=== PATIENT | male | born 1955 | race Caucasian/White ===

== ENCOUNTER 2020-08-10 23:26 | Emergency (ER) | payer OTHER, SELFPAY ==
--- NOTE | 2020-08-10 23:18 | ECG_ITS ---
APPROVED REPORT Exam: Resting ECG HR:124 bpm ECG Measurements Heart Rate 124 AXES FL 144 P 56 QRSd 90 QRS 27 QT 294 T 9 QTc 422 Conclusion Sinus tachycardia Otherwise normal ECG Electronically signed by : Rob Alas, 08/11/2020 19:45:00
[2020-08-10 23:28] VITALS: BP 149/93; PULSE 122; RESP 22; TEMP 38.2; O2SAT 95; BMI 33.6
--- NOTE | 2020-08-10 23:42 | [facility].EDSOB ---
ED Disposition Clinical Impression: COVID-19 virus detected, Pneumonia due to COVID-19 virus Disposition: Home, Self-Care Condition on Discharge: Good Instructions: DI for COVID-19 (Suspected or Confirmed ) Additional Instructions: fluids and call pcp this am - Critical Care Critical Care Time: No Attestation: On , the high probability of a clinically significant, sudden or life threatening deterioration of the following system(s) required my full and direct attention, intervention and personal management. The time I documented below is in addition to time spent performing reported procedures but includes the following listed in this critical care notation. Medical Decision Making - Medical Records Medical records reviewed: Yes: I reviewed the patient's medical records. - Jeffy Inquiry Pt receiving controlled substance: No Vital Signs: 08/10/20 23:28 08/11/20 00:00 08/11/20 00:30 Temperature 100.7 F H Temperature Source Oral Pulse Rate [Right] 122 H 114 H 110 H Respiratory Rate 22 18 17 Blood Pressure [Left Arm] 149/93 H 143/90 H 133/71 Blood Pressure Mean [Left Arm] 111 107 91 Blood Pressure Source [Left Arm] Automatic Cuff Automatic Cuff Automatic Cuff Blood Pressure Position [Left Arm] Supine Supine Supine 02 Sat by Pulse Oximetry 95 98 97 Oxygen Delivery Method Room Air Room Air Room Air 08/11/20 01:30 08/11/20 02:00 Temperature Temperature Source Pulse Rate [Right] 105 H 106 H Respiratory Rate 16 15 Blood Pressure [Left Arm] 140/84 132/82 Blood Pressure Mean [Left Arm] 102 98 Blood Pressure Source [Left Arm] Automatic Cuff Automatic Cuff Blood Pressure Position [Left Arm] Supine Supine 02 Sat by Pulse Oximetry 99 97 Oxygen Delivery Method Room Air Room Air - Lab Data Lab results reviewed: Yes: I reviewed the patient's lab results. Lab Results 08/11/20 00:00: Chlamy pneumoniae PCR Not detected, Adenovirus (PCR) Not detected, B. pertussis DNA (PCR) Not detected, Coronavirus OC43 (PCR) Not detected, Coronavirus HKU1 (PCR) Not detected, Coronavirus 229E (PCR) Not detected, SARS-CoV-2 (PCR) Detected A, Coronavirus NL63 (PCR) Not detected, Human Metapneumovir PCR Not detected, Influenza A (H1) PCR Not detected, Influ A (H1N1/09) PCR Not detected, Influenza A (H3) PCR Not detected, Influenza Type A (PCR) Not detected, Influenza Type B (PCR) Not detected, M. pneumoniae (PCR) Not detected, Parainfluenza 1 (PCR) Not detected, Parainfluenza 2 (PCR) Not detected, Parainfluenza 3 (PCR) Not detected, Parainfluenza 4 (PCR) Not detected, RSV (PCR) Not detected, Entero/Rhino (PCR) Not detected 08/11/20 00:00: WBC 4.8, RBC 5.39, Hgb 16.7, Hct 51.0, MCV 94.6 H, MCH 30.9, MCHC 32.7, RDW 12.7, Plt Count 165, MPV 7.4, Neut % (Auto) 69.5, Lymph % (Auto) 24.8, [place] % (Auto) 5.3, Eos % (Auto) 0.1, Baso % (Auto) 0.4, Neut # (Auto) 3.4, Lymph # (Auto) 1.2, [place] # (Auto) 0.3, Eos # (Auto) 0.0, Baso # (Auto) 0.0, ESR 17 08/11/20 00:00: Sodium 136, Potassium 4.0, Chloride 97 L, Carbon Dioxide 30, Anion Gap 13.0, BUN 13, Creatinine 1.00, Estimated Creat Clear 95, Estimated GFR 75, Est GFR ( Amer) 91, Glucose 221 H, Calcium 9.9, Total Bilirubin 1.0, AST 35, ALT 28, Alkaline Phosphatase 115, Troponin I 0.03, C-Reactive Protein 19.7 H, Total Protein 7.7, Albumin 4.3, Globulin 3.4 H, Albumin/Globulin Ratio 1.3, Procalcitonin 0.071 08/11/20 00:00: SARS-CoV-2 IgG Ab (Rapid) Negative, SARS-CoV-2 IgM Ab (Rapid) Negative Result diagrams: 08/11/20 00:00 08/11/20 00:00 Orders (Tests/Meds): ED MEDICATIONS Generic Name Dose Route Start Last Admin Trade Name Freq PRN Reason Stop Dose Admin Sodium Chloride 1,000 mls @ 999 mls/hr 08/10/20 23:45 08/11/20 00:05 Sod Chlor 0.9% 1000ml Bag IV 08/11/20 00:45 999 mls/hr .[id number] HONG Administration Discontinued Medications Generic Name Dose Route Start Last Admin Trade Name Freq PRN Reason Stop Dose Admin Acetaminophen 1,000 mg 08/10/20 23:41 08/11/20 00:04
[2020-08-11] VITALS: BP 143/90; PULSE 114; RESP 18; O2SAT 98
--- NOTE | 2020-08-11 00:02 | CT_ITS ---
PROCEDURE: CT ANGIO CHEST CLINCIAL INDICATION: pain with inspiration, dyspnea, shortness of air, exposure to Covid19 COMPARISON: No exams were available for comparison TECHNIQUE: IV Contrast: 70ML Isovue 370 Axial images obtained with sagittal and coronal reformats. All CT scans at the facility use one or more dose reduction, viz: automated exposure control, ma/kV adjustment per patient size (including targeted exams where dose is matched to indication, i.e. head), or iterative reconstruction technique. FINDINGS: HEART AND MEDIASTINAL STRUCTURES: No evidence of aortic aneurysm dissection or central pulmonary embolus. Peripheral pulmonary arteries are not well opacified. There are few scattered small mediastinal lymph nodes.. Coronary artery calcifications LUNGS AND PLEURAL SPACES: Patchy areas of atelectasis and/or infiltrate noted in the lung bases within both lower lobes and lingula with faint patchy peripheral right upper lobe opacity/ground-glass opacity in the perihilar region which could be seen with Covid19 pneumonia. BONY STRUCTURES: No acute bony abnormalities apparent. UPPER ABDOMEN: Fatty liver ADDITIONAL FINDINGS: Gynecomastia IMPRESSION: Bilateral atelectatic changes with faint peripheral right upper lobe and perihilar opacity which could represent Covid19 infection No central pulmonary embolus. Fatty liver Dictated by: Homar Diaz MD 08/11/2020 08:52 Homar Diaz MD in [facility] 08/11/2020 08:52
--- NOTE | 2020-08-11 00:02 | XR_ITS ---
PROCEDURE: XR CHEST PORTABLE CLINICAL HISTORY: SOA Shortness of air and dyspnea COMPARISON: No exams were available for comparison FINDINGS: The cardiomediastinal silhouette and pulmonary vascularity are within normal limits. There are low lung volumes with increased density in the lung bases which could be due to areas of atelectasis and/or infiltrate. Upper lobes are clear. No acute bony abnormalities. IMPRESSION: Hypoventilation with atelectasis or infiltrate in the lung bases. Dictated by: Homar Diaz MD 08/11/2020 06:07 Homar Diaz MD in [facility] 08/11/2020 06:07
[2020-08-11 00:21] LABS: Alanine Aminotransferase 28 U/L (12-78); Albumin Level 4.3 g/dl (3.5-5.0); Albumin/Globulin Ratio 1.3 (1.1-1.8); Alkaline Phosphatase 115 U/L (38-126); Aspartate Amino Transferase 35 U/L (17-59); Blood Urea Nitrogen 13 mg/dl (9-20); Calcium 9.9 mg/dl (8.4-10.2); Carbon Dioxide 30 mmol/L (22.0-30.0); Chloride 97 mmol/L (98-107); Creatinine Clearance Estimated 95 mL/min (50-200); Estimated Glomerular Filt Rate 75 ml/min (>60); GFR (African American) 91 ML/MIN (>60); Globulin 3.4 g/dL (1.3-3.2); Glucose 221 mg/dl (74-100); Sodium 136 mmol/L (136-145); Total Protein,Serum 7.7 g/dl (6.3-8.2)
[2020-08-11 00:22] LABS: Basophils % 0.4 % (0.1-2.0); Eosinophils % 0.1 % (0.1-12.0); Hemoglobin 16.7 g/dL (14.1-18.0); Lymphocytes # 1.2 K/mm3 (0.7-4.5); Lymphocytes % 24.8 % (10-50); Mean Corpuscular HGB Conc 32.7 g/dL (31.8-35.4); Mean Corpuscular Hemoglobin 30.9 pg (27.0-31.2); Mean Corpuscular Volume 94.6 fl (80-94); Mean Platelet Volume 7.4 fl (7.4-10.4); Monocytes # 0.3 K/mm3 (0.1-1.0); Monocytes % 5.3 % (1.7-9.3); Neutrophils # 3.4 K/mm3 (1.8-7.8); Neutrophils % 69.5 % (37.0-80.0); Platelet Count 165 K/mm3 (142-424); Red Blood Count 5.39 M/mm3 (4.60-6.20); Red Cell Distribution Width 12.7 % (11.5-17.5); White Blood Count 4.8 K/mm3 (4.8-10.8)
[2020-08-11 00:26] LABS: C-Reactive Protein 19.7 mg/L (0-4)
[2020-08-11 00:30] VITALS: BP 133/71; PULSE 110; RESP 17; O2SAT 97
[2020-08-11 00:34] LABS: Adenovirus,PCR Not Detected (NotDetected); Bordetella Pertussis Not Detected (NotDetected); Chlamydophila Pneumoniae, PCR Not Detected (NotDetected); Coronavirus 229E Not Detected (NotDetected); Coronavirus NL63 Not Detected (NotDetected); Coronavirus OC43 Not Detected (NotDetected); Coronovirus HKU1,PCR Not Detected (NotDetected); Human Metapneumovirus Not Detected (NotDetected); Influenza A, PCR Not Detected (NotDetected); Influenza AH1, 2009 Not Detected (NotDetected); Influenza AH1, PCR Not Detected (NotDetected); Influenza AH3,PCR Not Detected (NotDetected); Influenza B, PCR Not Detected (NotDetected); Mycoplasma Pneumoniae, PCR Not Detected (NotDetected); Parainfluenza 1, PCR Not Detected (NotDetected); Parainfluenza 2, PCR Not Detected (NotDetected); Parainfluenza 3, PCR Not Detected (NotDetected); Parainfluenza 4, PCR Not Detected (NotDetected); Respiratory Syncytial Virus Not Detected (NotDetected); Rhinovirus/Enterovirus Not Detected (NotDetected)
[2020-08-11 00:35] LABS: Troponin I 0.03 ng/ml (0.00-0.034)
[2020-08-11 00:40] LABS: Procalcitonin 0.071 ng/mL (0.0-2.0)
[2020-08-11 00:46] LABS: Coronavirus 19 IgG Antibody Negative (Negative); Coronavirus 19 IgM Antibody Negative (Negative)
[2020-08-11 00:47] LABS: Erythrocyte Sedimentation Rate 17 mm/hr (0-20)
[2020-08-11 01:30] VITALS: BP 140/84; PULSE 105; RESP 16; O2SAT 99
[2020-08-11 02:00] VITALS: BP 132/82; PULSE 106; RESP 15; O2SAT 97
[2020-08-11 02:09] LABS: Coronavirus 19, PCR Detected (NotDetected)
[2020-08-11 02:30] VITALS: BP 147/94; PULSE 105; RESP 18; O2SAT 98
[2020-08-11 03:02] VITALS: BP 146/92; PULSE 103; RESP 16; TEMP 36.9; O2SAT 95
== END 2020-08-11 03:09 | disposition home or self-care (01) ==
PROVIDERS: Emergency Provider Emergency Medicine; PCP Nurse Practitioner
DX: J12.82 Pneumonia due to coronavirus disease 2019 (principal); Z01.84 Encounter for antibody response examination
CPT/HCPCS: 71045; 71275; 80053; 84145; 84484; 85025; 85651; 86140; 86328; 87581; 87633; 87798; 93005; 96365; 96375; 99284; J2405; Q9967; U0003

== ENCOUNTER 2025-07-17 15:04 | Emergency (ER) | payer MEDICARE, SELFPAY ==
[2025-07-17] VITALS (24 sets, daily range): BP systolic 131–166; BP diastolic 75–94; PULSE 93–113; RESP 11–21; TEMP 36.9; O2SAT 95–100; BMI 33.3
[2025-07-17 15:25] LABS: POC Glucose,Bedside 322 gm/dL (70-110)
--- NOTE | 2025-07-17 15:29 | PC.NURSE ---
patient asked to provide urine sample. patient stated he couldn't at this time. patient educated to let staff know when he needed to use the restroom so we could collect a urine sample.
--- NOTE | 2025-07-17 15:49 | HMH.EDGENADL ---
Discharge Plan Disposition Patient Disposition: Xfer Short-Term Hosp Condition: Good Prescriptions Prescriptions: No Action famotidine 20 MG tablet 20 mg PO DAILY Referrals Follow up/Referrals: Reece (ED),VIANEY Zamora [Primary Care Provider, Emergency Medicine] - See instructions Clinical Impressions Clinical Impression: CVA (cerebral vascular accident) Qualifiers: CVA mechanism: other Qualified Code(s): I63.89 - Other cerebral infarction Stand Alone Forms Stand Alone Forms: Transfer Record - ED Instructions Patient Instructions: DI for Altered Mental Status Print Language Print Language: Malay Discharge ED Provider: Karli Campbell General Adult HPI <Lora Mckeon ([facility])VIANEY - Last Filed: 07/17/25 18:21> General Chief complaint: Altered Mental Status Stated complaint: Altered mental status Time Seen by Provider: 07/17/25 15:36 Mode of Arrival: Ambulatory Source of Information: Patient and Relative Description of Symptoms (Recalled from ER Triage Doc. by RN): patient presents to the ED for altered mental state. the daughter who works as a nurse states he he off from baseline . per the patients neice, he has a surgical tooth extraction on 07/09 but his altered state started about 2 days prior . no major health history. has a surgical history of appendectomy, hernia repaor and the surgical tooth extraction. no prior stroke hx. takes aspirin daily for prophylaxis according to the patient nad the neice. History of Present Illness HPI narrative: 70-year-old male presents to the ER for altered mental status x 10 days. Niece at bedside and states patient is just not acting right. She states this morning she came into evaluate him and he was just not acting right was trying to step backwards on the couch with his knees and then after sitting for a little while got up and went into the kitchen and when she went into check on him he was just standing looking around and when she asked what he was doing he said I do not know. Niece states she did talk him into coming in to be evaluated. States no medical history but does not go to the doctor. Related Data Home Medications ?Medication ?Instructions ?Recorded ?Confirmed famotidine 20 mg tablet 20 mg PO DAILY GERD 08/10/20 08/10/20 Allergies Allergy/AdvReac Type Severity Reaction Status Date / Time No Known Allergies Allergy Verified 08/10/20 23:39 PFSH <Lora Mckeon ([facility]), EQUIPMENT COORDINATOR - Last Filed: 07/17/25 18:21> PFS Disclaimer: The information contained in this section may have been updated after the patient was seen, as this information can be updated by other users. Social History Smoking Status: Never smoker alcohol intake: never current occupational status: retired Travel in the last 8 weeks?: None Have you lived/traveled outside US in past 30 days?: No Contact w/someone who lives/traveled outside US past 30 days?: No Exposure to someone with infectious disease in past 14 days?: No Do you have a fever (greater than 100.4 F or 38 C)?: No Have you tested positive for COVID-19?: No Exposed to someone with COVID-19 in past 14 days?: No Do you have a sore throat?: No Do you have a cough?: No Do you have any weakness?: No Do you have any diarrhea?: No Are you experiencing any unusual bleeding?: No Do you have any muscle aches/pain?: No Do you have any abdominal pain?: No Are you experiencing loss of taste or smell?: No Other Medical History Have you received the Flu Vaccine for this season: No Have you received the Pneumonia Vaccine: No <Lora Mckeon ([facility]), EQUIPMENT COORDINATOR - Last Filed: 07/17/25 18:21> ROS Obtained: Yes Systems reviewed as appropriate & no additional complaints except as documented Constitutional Constitutional: Reports system reviewed and no additional complaints, except as documented and Reports as per HPI Musculoskeletal Musculoskeletal: Reports abnormal gait Neurologic Neurologic: Reports system reviewed and no additional complaints, except as documented, Reports as per HPI and Reports abnormal gait Physical Exam <Lora Mckeon ([facility]), EQUIPMENT COORDINATOR - Last Filed: 07/17/25 18:21> General General appearance: alert and in no apparent distress Eye Eye exam: Present normal appearance and PERRL ENT ENT exam: Present normal exam Respiratory Respiratory exam: Present normal lung sounds bilaterally Cardiovascular Cardiovascular exam: Present regular rate and normal rhythm Neurological Exam Neurological exam: Present alert, oriented X3 and CN II-XII intact Skin Skin exam: Present warm and intact Medical Decision Making <Lora Mckeon ([facility]), EQUIPMENT COORDINATOR - Last Filed: 07/17/25 18:21> Medical Records Medical records reviewed: Yes I reviewed the patient's medical records. Screening: Per USPSTF and CDC recommendations, given the prevalence of disease in our region, it is our hospital?s policy to screen for HIV and viral Hepatitis for all patients aged 18 and over and those with ongoing risk factors. Jeffy Inquiry Pt receiving controlled substance: No Jeffy was queried for this patient: No Vital Signs: 07/17/25 15:19 07/17/25 16:00 07/17/25 16:52 Temperature 98.5 F Temperature Source Oral Pulse Rate 110 H 113 H Pulse Rate [Right Radial] 112 H Respiratory Rate 20 16 21 Blood Pressure 133/75 154/85 H Blood Pressure [Right Arm] 147/90 H Blood Pressure Mean 94 Blood Pressure Mean [Right Arm] 109 Blood Pressure Source [Right Arm] Automatic Cuff Blood Pressure Position [Right Arm] Sitting 02 Sat by Pulse Oximetry 97 95 98 Oxygen Delivery Method Room Air Room Air 07/17/25 17:00 07/17/25 19:15 07/17/25 19:16 Temperature Temperature Source Pulse Rate 98 H 96 H Pulse Rate [Right Radial] Respiratory Rate 11 L 12 21 Blood Pressure 138/94 H Blood Pressure [Right Arm] Blood Pressure Mean Blood Pressure Mean [Right Arm] Blood Pressure Source [Right Arm] Blood Pressure Position [Right Arm] 02 Sat by Pulse Oximetry 98 98 Oxygen Delivery Method Room Air Room Air 07/17/25 19:16 07/17/25 19:30 07/17/25 19:31 Temperature Temperature Source Pulse Rate 93 H 101 H Pulse Rate [Right Radial] Respiratory Rate 15 16 Blood Pressure 166/90 H Blood Pressure [Right Arm] Blood Pressure Mean 138 Blood Pressure Mean [Right Arm] Blood Pressure Source [Right Arm] Blood Pressure Position [Right Arm] 02 Sat by Pulse Oximetry 99 99 Oxygen Delivery Method Room Air Room Air 07/17/25 19:45 07/17/25 20:00 07/17/25 20:01 Temperature Temperature Source Pulse Rate 100 H 102 H Pulse Rate [Right Radial] Respiratory Rate 18 21 21 Blood Pressure Blood Pressure [Right Arm] Blood Pressure Mean Blood Pressure Mean [Right Arm] Blood Pressure Source [Right Arm] Blood Pressure Position [Right Arm] 02 Sat by Pulse Oximetry 99 98 Oxygen Delivery Method Room Air Room Air 07/17/25 20:01 07/17/25 20:15 07/17/25 21:33 Temperature Temperature Source Pulse Rate 96 H Pulse Rate [Right Radial] Respiratory Rate 18 16 Blood Pressure 161/93 H 131/88 Blood Pressure [Right Arm] Blood Pressure Mean 115 100 Blood Pressure Mean [Right Arm] Blood Pressure Source [Right Arm] Blood Pressure Position [Right Arm] 02 Sat by Pulse Oximetry 100 Oxygen Delivery Method Room Air 07/17/25 22:00 07/17/25 22:00 07/17/25 22:15 Temperature Temperature Source Pulse Rate Pulse Rate [Right Radial] Respiratory Rate 15 15 Blood Pressure 138/93 H Blood Pressure [Right Arm] Blood Pressure Mean 108 Blood Pressure Mean [Right Arm] Blood Pressure Source [Right Arm] Blood Pressure Position [Right Arm] 02 Sat by Pulse Oximetry Oxygen Delivery Method 07/17/25 22:30 07/17/25 22:45 07/17/25 23:00 Temperature Temperature Source Pulse Rate 110 H 110 H 103 H Pulse Rate [Right Radial] Respiratory Rate 18 11 L 20 Blood Pressure Blood Pressure [Right Arm] Blood Pressure Mean Blood Pressure Mean [Right Arm] Blood Pressure Source [Right Arm] Blood Pressure Position [Right Arm] 02 Sat by Pulse Oximetry 99 99 98 Oxygen Delivery Method Room Air Room Air Room Air 07/17/25 23:02 07/17/25 23:03 07/17/25 23:03 Temperature Temperature Source Pulse Rate 110 H 109 H Pulse Rate [Right Radial] Respiratory Rate 19 20 Blood Pressure 155/90 H Blood Pressure [Right Arm] Blood Pressure Mean 111 Blood Pressure Mean [Right Arm] Blood Pressure Source [Right Arm] Blood Pressure Position [Right Arm] 02 Sat by Pulse Oximetry 98 98 Oxygen Delivery Method Room Air Room Air Lab Data Lab results reviewed: Yes I reviewed the patient's lab results. Lab Results 07/17/25 15:18: POC Glucose 322 H* 07/17/25 16:30: WBC 9.2, RBC 5.80, Hgb 17.9, Hct 52.1 H, MCV 89.8, MCH 30.9, MCHC 34.4, RDW 11.9, Plt Count 282, MPV 9.4, Neut % (Auto) 72.0, Lymph % (Auto) 20.7, Baldwin % (Auto) 5.0, Eos % (Auto) 1.2, Baso % (Auto) 0.7, Neut # (Auto) 6.6, Lymph # (Auto) 1.9, Baldwin # (Auto) 0.5, Eos # (Auto) 0.1, Baso # (Auto) 0.1, Sodium 142, Potassium 4.6, Chloride 101, Carbon Dioxide 28, Anion Gap 17.6 H, BUN 20, Creatinine 1.00, Estimated Creat Clear 85, Estimated GFR 74, Est GFR ( Amer) 90, Glucose 331 H, Hemoglobin A1c 10.8 H, Calcium 10.8 H, Total Bilirubin 0.8, AST 36, ALT 24, Alkaline Phosphatase 103, Total Protein 8.6 H, Albumin 4.9, Globulin 3.7 H, Albumin/Globulin Ratio 1.3 07/17/25 16:34: VBG pH 7.35, VBG pCO2 51.3 H, VBG pO2 21.7 L, VBG HCO3 27.6, VBG Total CO2 29.1 H, VBG O2 Saturation 39.3 L, VBG Base Excess 1.9, VBG Lactic Acid 2.6 H 07/17/25 16:50: Urine Color Yellow, Urine Appearance Clear, Urine pH 6.0, Ur Specific Maury 1.020, Urine Protein Negative, Urine Glucose (UA) 3+, Urine Ketones Negative, Urine Blood Negative, Urine Nitrate Negative, Urine Bilirubin Negative, Urine Urobilinogen 0.2, Ur Leukocyte Esterase Negative, Urine RBC None, Urine WBC Occasional, Ur Squamous Epith Cells None, Urine Bacteria Trace 07/17/25 16:30 07/17/25 16:30 Orders (Tests/Meds): ED MEDICATIONS Generic Name Dose Route Start Last Admin Trade Name Freq PRN Reason Stop Dose Admin Sodium Chloride 1,000 mls @ 125 mls/hr 07/17/25 23:15 07/17/25 23:19 Sod Chlor 0.9% 1000ml Bag IV 08/16/25 23:14 125 mls/hr .Q8H HONG Administration Discontinued Medications Generic Name Dose Route Start Last Admin Trade Name Freq PRN Reason Stop Dose Admin Aspirin 325 mg 07/17/25 17:22 07/17/25 17:33 Aspirin 325mg Tablet PO 07/17/25 17:23 325 mg ONCE ONE Administration Clopidogrel Bisulfate 300 mg 07/17/25 18:21 07/17/25 18:39 Clopidogrel 300mg Tablet PO 07/17/25 18:22 300 mg ONCE ONE Administration Iopamidol 80 ml 07/17/25 17:34 07/17/25 17:35 Iopamidol-370 (76%);100ml Bottle IV 07/17/25 17:35 80 ml ONCE ONE Administration Sodium Chloride 10 ml 07/17/25 17:34 07/17/25 17:35 Sodium Chloride 0.9% 10ml Syr (Rad Only) IV 07/17/25 17:35 10 ml ONCE ONE Administration Sodium Chloride 50 ml 07/17/25 17:34 07/17/25 17:35 0.9 % Sodium Chloride 50 Ml Vial IV 07/17/25 17:35 50 ml ONCE ONE Administration ORDERS Category Date Time Status CT angio head Stat Cat Scan 07/17/25 17:[address] angio neck Stat Cat Scan 07/17/25 17:[address] head/brain wo con Stat Cat Scan 07/17/25 15:50 Completed CBC w/Auto Diff [Complete Blood Count Auto Diff] Stat Lab 07/17/25 16:30 Completed CMP [Comprehensive Metabolic Panel] Stat Lab 07/17/25 16:30 Completed Hemoglobin A1C Stat Lab 07/17/25 16:30 Completed POC Glucose,Bedside Routine Lab 07/17/25 15:18 Completed Urinalysis and Microscopic Stat Lab 07/17/25 16:50 Completed Venous Blood Gas Stat RT 07/17/25 16:[address] CT Scan: Head Time Received: 17:[address] Reviewed: Yes I discussed the CT results w/the radiologist and I have viewed the radiologist's interpretation Preliminary Findings: Abnormal US Data ED US Reviewed: Yes I discussed the US results w/the radiologist and I have viewed radiologist's interpretation Medical Decision Narrative: In summary patient is a 70-year-old male who presents to the emergency department for evaluation of altered mental status for 10 days, niece at bedside states symptoms have been going on for about 10 days and patient refused to go be evaluated. She states he had an episode at home where he was trying to sit on the couch knees first, after sitting for a little bit he got up with the irregular gait walked into the kitchen and was wondering around when she asked what he was doing he states I do not know. Patient is hemodynamically stable upon arrival, afebrile. Unremarkable physical exam Nogal Coma Scale 15. Differential diagnosis includes TIA, stroke, UTI. Initial workup will be conducted with labs, CT of the head- No acute intracranial hemorrhage.Well-delineated low attenuation in the superior right frontal lobe may represent evolving infarction. 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 Severe multifocal intracranial atherosclerotic change,cta neck- The right vertebral artery is occluded in the neck. The cervical vasculature is otherwise patent. there is asymmetry to the right tongue base soft tissues protruding into the vallecula. Correlate with direct inspection. - results called to [facility])-recommends 300 mg Plavix one-time urine. Initial workup reviewed by [place] glucose 331 A1c ordered, white count normal, urine normal. Upon repeat evaluation with CT showing progression of a stroke unknown timing. [facility] <Radu Wu MD - Last Filed: 07/17/25 23:16> Vital Signs: 07/17/25 15:19 07/17/25 16:00 07/17/25 16:52 Temperature 98.5 F Temperature Source Oral Pulse Rate 110 H 113 H Pulse Rate [Right Radial] 112 H Respiratory Rate 20 16 21 Blood Pressure 133/75 154/85 H Blood Pressure [Right Arm] 147/90 H Blood Pressure Mean 94 Blood Pressure Mean [Right Arm] 109 Blood Pressure Source [Right Arm] Automatic Cuff Blood Pressure Position [Right Arm] Sitting 02 Sat by Pulse Oximetry 97 95 98 Oxygen Delivery Method Room Air Room Air 07/17/25 17:00 07/17/25 19:15 07/17/25 19:16 Temperature Temperature Source Pulse Rate 98 H 96 H Pulse Rate [Right Radial] Respiratory Rate 11 L 12 21 Blood Pressure 138/94 H Blood Pressure [Right Arm] Blood Pressure Mean Blood Pressure Mean [Right Arm] Blood Pressure Source [Right Arm] Blood Pressure Position [Right Arm] 02 Sat by Pulse Oximetry 98 98 Oxygen Delivery Method Room Air Room Air 07/17/25 19:16 07/17/25 19:30 07/17/25 19:31 Temperature Temperature Source Pulse Rate 93 H 101 H Pulse Rate [Right Radial] Respiratory Rate 15 16 Blood Pressure 166/90 H Blood Pressure [Right Arm] Blood Pressure Mean 138 Blood Pressure Mean [Right Arm] Blood Pressure Source [Right Arm] Blood Pressure Position [Right Arm] 02 Sat by Pulse Oximetry 99 99 Oxygen Delivery Method Room Air Room Air 07/17/25 19:45 07/17/25 20:00 07/17/25 20:01 Temperature Temperature Source Pulse Rate 100 H 102 H Pulse Rate [Right Radial] Respiratory Rate 18 21 21 Blood Pressure Blood Pressure [Right Arm] Blood Pressure Mean Blood Pressure Mean [Right Arm] Blood Pressure Source [Right Arm] Blood Pressure Position [Right Arm] 02 Sat by Pulse Oximetry 99 98 Oxygen Delivery Method Room Air Room Air 07/17/25 20:01 07/17/25 20:15 07/17/25 21:33 Temperature Temperature Source Pulse Rate 96 H Pulse Rate [Right Radial] Respiratory Rate 18 16 Blood Pressure 161/93 H 131/88 Blood Pressure [Right Arm] Blood Pressure Mean 115 100 Blood Pressure Mean [Right Arm] Blood Pressure Source [Right Arm] Blood Pressure Position [Right Arm] 02 Sat by Pulse Oximetry 100 Oxygen Delivery Method Room Air 07/17/25 22:00 07/17/25 22:00 07/17/25 22:15 Temperature Temperature Source Pulse Rate Pulse Rate [Right Radial] Respiratory Rate 15 15 Blood Pressure 138/93 H Blood Pressure [Right Arm] Blood Pressure Mean 108 Blood Pressure Mean [Right Arm] Blood Pressure Source [Right Arm] Blood Pressure Position [Right Arm] 02 Sat by Pulse Oximetry Oxygen Delivery Method 07/17/25 22:30 07/17/25 22:45 07/17/25 23:00 Temperature Temperature Source Pulse Rate 110 H 110 H 103 H Pulse Rate [Right Radial] Respiratory Rate 18 11 L 20 Blood Pressure Blood Pressure [Right Arm] Blood Pressure Mean Blood Pressure Mean [Right Arm] Blood Pressure Source [Right Arm] Blood Pressure Position [Right Arm] 02 Sat by Pulse Oximetry 99 99 98 Oxygen Delivery Method Room Air Room Air Room Air 07/17/25 23:02 07/17/25 23:03 07/17/25 23:03 Temperature Temperature Source Pulse Rate 110 H 109 H Pulse Rate [Right Radial] Respiratory Rate 19 20 Blood Pressure 155/90 H Blood Pressure [Right Arm] Blood Pressure Mean 111 Blood Pressure Mean [Right Arm] Blood Pressure Source [Right Arm] Blood Pressure Position [Right Arm] 02 Sat by Pulse Oximetry 98 98 Oxygen Delivery Method Room Air Room Air Lab Data Lab Results 07/17/25 15:18: POC Glucose 322 H* 07/17/25 16:30: WBC 9.2, RBC 5.80, Hgb 17.9, Hct 52.1 H, MCV 89.8, MCH 30.9, MCHC 34.4, RDW 11.9, Plt Count 282, MPV 9.4, Neut % (Auto) 72.0, Lymph % (Auto) 20.7, Baldwin % (Auto) 5.0, Eos % (Auto) 1.2, Baso % (Auto) 0.7, Neut # (Auto) 6.6, Lymph # (Auto) 1.9, Baldwin # (Auto) 0.5, Eos # (Auto) 0.1, Baso # (Auto) 0.1, Sodium 142, Potassium 4.6, Chloride 101, Carbon Dioxide 28, Anion Gap 17.6 H, BUN 20, Creatinine 1.00, Estimated Creat Clear 85, Estimated GFR 74, Est GFR ( Amer) 90, Glucose 331 H, Hemoglobin A1c 10.8 H, Calcium 10.8 H, Total Bilirubin 0.8, AST 36, ALT 24, Alkaline Phosphatase 103, Total Protein 8.6 H, Albumin 4.9, Globulin 3.7 H, Albumin/Globulin Ratio 1.3 07/17/25 16:34: VBG pH 7.35, VBG pCO2 51.3 H, VBG pO2 21.7 L, VBG HCO3 27.6, VBG Total CO2 29.1 H, VBG O2 Saturation 39.3 L, VBG Base Excess 1.9, VBG Lactic Acid 2.6 H 07/17/25 16:50: Urine Color Yellow, Urine Appearance Clear, Urine pH 6.0, Ur Specific Maury 1.020, Urine Protein Negative, Urine Glucose (UA) 3+, Urine Ketones Negative, Urine Blood Negative, Urine Nitrate Negative, Urine Bilirubin Negative, Urine Urobilinogen 0.2, Ur Leukocyte Esterase Negative, Urine RBC None, Urine WBC Occasional, Ur Squamous Epith Cells None, Urine Bacteria Trace Orders (Tests/Meds): ED MEDICATIONS Generic Name Dose Route Start Last Admin Trade Name Freq PRN Reason Stop Dose Admin Sodium Chloride 1,000 mls @ 125 mls/hr 07/17/25 23:15 07/17/25 23:19 Sod Chlor 0.9% 1000ml Bag IV 08/16/25 23:14 125 mls/hr .Q8H HONG Administration Discontinued Medications Generic Name Dose Route Start Last Admin Trade Name Pankaj PRN Reason Stop Dose Admin Aspirin 325 mg 07/17/25 17:22 07/17/25 17:33 Aspirin 325mg Tablet PO 07/17/25 17:23 325 mg ONCE ONE Administration Clopidogrel Bisulfate 300 mg 07/17/25 18:21 07/17/25 18:39 Clopidogrel 300mg Tablet PO 07/17/25 18:22 300 mg ONCE ONE Administration Iopamidol 80 ml 07/17/25 17:34 07/17/25 17:35 Iopamidol-370 (76%);100ml Bottle IV 07/17/25 17:35 80 ml ONCE ONE Administration Sodium Chloride 10 ml 07/17/25 17:34 07/17/25 17:35 Sodium Chloride 0.9% 10ml Syr (Rad Only) IV 07/17/25 17:35 10 ml ONCE ONE Administration Sodium Chloride 50 ml 07/17/25 17:34 07/17/25 17:35 0.9 % Sodium Chloride 50 Ml Vial IV 07/17/25 17:35 50 ml ONCE ONE Administration ORDERS Category Date Time Status CT angio head Stat Cat Scan 07/17/25 17:[address] angio neck Stat Cat Scan 07/17/25 17:[address] head/brain wo con Stat Cat Scan 07/17/25 15:50 Completed CBC w/Auto Diff [Complete Blood Count Auto Diff] Stat Lab 07/17/25 16:30 Completed CMP [Comprehensive Metabolic Panel] Stat Lab 07/17/25 16:30 Completed Hemoglobin A1C Stat Lab 07/17/25 16:30 Completed POC Glucose,Bedside Routine Lab 07/17/25 15:18 Completed Urinalysis and Microscopic Stat Lab 07/17/25 16:50 Completed Venous Blood Gas Stat RT 07/17/25 16:34 Completed Medical Decision Narrative: In summary patient is a 70-year-old male who presents to the emergency department for evaluation of altered mental status for 10 days, niece at bedside states symptoms have been going on for about 10 days and patient refused to go be evaluated. She states he had an episode at home where he was trying to sit on the couch knees first, after sitting for a little bit he got up with the irregular gait walked into the kitchen and was wondering around when she asked what he was doing he states I do not know. Patient is hemodynamically stable upon arrival, afebrile. Unremarkable physical exam Bashir Coma Scale 15. Differential diagnosis includes TIA, stroke, UTI. Initial workup will be conducted with labs, CT of the head- No acute intracranial hemorrhage.Well-delineated low attenuation in the superior right frontal lobe may represent evolving infarction. 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 Severe multifocal intracranial atherosclerotic change,cta neck- The right vertebral artery is occluded in the neck. The cervical vasculature is otherwise patent. there is asymmetry to the right tongue base soft tissues protruding into the vallecula. Correlate with direct inspection. - [facility] 300 mg Plavix one-time urine. Initial workup reviewed by me glucose 331 A1c ordered, white count normal, urine normal. Upon repeat evaluation with CT showing progression of a stroke unknown timing. [facility] Radu Wu MD: At the time that I assumed care of the patient he was pending transport to [facility]. He remained stable throughout his ED visit. He is mildly tachycardic. Will start maintenance fluids on him. He has been ambulatory here in the emergency department with continued NIH of 0. Has been significant delay in transportation given multiple [place] transport by our ground EMS crew. Due to weather, flight crew's are not transporting at this time. <Shadi Cunha MD - Last Filed: 07/18/25 00:33> Vital Signs: 07/17/25 15:19 07/17/25 16:00 07/17/25 16:52 Temperature 98.5 F Temperature Source Oral Pulse Rate 110 H 113 H Pulse Rate [Right Radial] 112 H Respiratory Rate 20 16 21 Blood Pressure 133/75 154/85 H Blood Pressure [Right Arm] 147/90 H Blood Pressure Mean 94 Blood Pressure Mean [Right Arm] 109 Blood Pressure Source [Right Arm] Automatic Cuff Blood Pressure Position [Right Arm] Sitting 02 Sat by Pulse Oximetry 97 95 98 Oxygen Delivery Method Room Air Room Air 07/17/25 17:00 07/17/25 19:15 07/17/25 19:16 Temperature Temperature Source Pulse Rate 98 H 96 H Pulse Rate [Right Radial] Respiratory Rate 11 L 12 21 Blood Pressure 138/94 H Blood Pressure [Right Arm] Blood Pressure Mean Blood Pressure Mean [Right Arm] Blood Pressure Source [Right Arm] Blood Pressure Position [Right Arm] 02 Sat by Pulse Oximetry 98 98 Oxygen Delivery Method Room Air Room Air 07/17/25 19:16 07/17/25 19:30 07/17/25 19:31 Temperature Temperature Source Pulse Rate 93 H 101 H Pulse Rate [Right Radial] Respiratory Rate 15 16 Blood Pressure 166/90 H Blood Pressure [Right Arm] Blood Pressure Mean 138 Blood Pressure Mean [Right Arm] Blood Pressure Source [Right Arm] Blood Pressure Position [Right Arm] 02 Sat by Pulse Oximetry 99 99 Oxygen Delivery Method Room Air Room Air 07/17/25 19:45 07/17/25 20:00 07/17/25 20:01 Temperature Temperature Source Pulse Rate 100 H 102 H Pulse Rate [Right Radial] Respiratory Rate 18 21 21 Blood Pressure Blood Pressure [Right Arm] Blood Pressure Mean Blood Pressure Mean [Right Arm] Blood Pressure Source [Right Arm] Blood Pressure Position [Right Arm] 02 Sat by Pulse Oximetry 99 98 Oxygen Delivery Method Room Air Room Air 07/17/25 20:01 07/17/25 20:15 07/17/25 21:33 Temperature Temperature Source Pulse Rate 96 H Pulse Rate [Right Radial] Respiratory Rate 18 16 Blood Pressure 161/93 H 131/88 Blood Pressure [Right Arm] Blood Pressure Mean 115 100 Blood Pressure Mean [Right Arm] Blood Pressure Source [Right Arm] Blood Pressure Position [Right Arm] 02 Sat by Pulse Oximetry 100 Oxygen Delivery Method Room Air 07/17/25 22:00 07/17/25 22:00 07/17/25 22:15 Temperature Temperature Source Pulse Rate Pulse Rate [Right Radial] Respiratory Rate 15 15 Blood Pressure 138/93 H Blood Pressure [Right Arm] Blood Pressure Mean 108 Blood Pressure Mean [Right Arm] Blood Pressure Source [Right Arm] Blood Pressure Position [Right Arm] 02 Sat by Pulse Oximetry Oxygen Delivery Method 07/17/25 22:30 07/17/25 22:45 07/17/25 23:00 Temperature Temperature Source Pulse Rate 110 H 110 H 103 H Pulse Rate [Right Radial] Respiratory Rate 18 11 L 20 Blood Pressure Blood Pressure [Right Arm] Blood Pressure Mean Blood Pressure Mean [Right Arm] Blood Pressure Source [Right Arm] Blood Pressure Position [Right Arm] 02 Sat by Pulse Oximetry 99 99 98 Oxygen Delivery Method Room Air Room Air Room Air 07/17/25 23:02 07/17/25 23:03 07/17/25 23:03 Temperature Temperature Source Pulse Rate 110 H 109 H Pulse Rate [Right Radial] Respiratory Rate 19 20 Blood Pressure 155/90 H Blood Pressure [Right Arm] Blood Pressure Mean 111 Blood Pressure Mean [Right Arm] Blood Pressure Source [Right Arm] Blood Pressure Position [Right Arm] 02 Sat by Pulse Oximetry 98 98 Oxygen Delivery Method Room Air Room Air Lab Data Lab Results 07/17/25 15:18: POC Glucose 322 H* 07/17/25 16:30: WBC 9.2, RBC 5.80, Hgb 17.9, Hct 52.1 H, MCV 89.8, MCH 30.9, MCHC 34.4, RDW 11.9, Plt Count 282, MPV 9.4, Neut % (Auto) 72.0, Lymph % (Auto) 20.7, Baldwin % (Auto) 5.0, Eos % (Auto) 1.2, Baso % (Auto) 0.7, Neut # (Auto) 6.6, Lymph # (Auto) 1.9, Baldwin # (Auto) 0.5, Eos # (Auto) 0.1, Baso # (Auto) 0.1, Sodium 142, Potassium 4.6, Chloride 101, Carbon Dioxide 28, Anion Gap 17.6 H, BUN 20, Creatinine 1.00, Estimated Creat Clear 85, Estimated GFR 74, Est GFR ( Amer) 90, Glucose 331 H, Hemoglobin A1c 10.8 H, Calcium 10.8 H, Total Bilirubin 0.8, AST 36, ALT 24, Alkaline Phosphatase 103, Total Protein 8.6 H, Albumin 4.9, Globulin 3.7 H, Albumin/Globulin Ratio 1.3 07/17/25 16:34: VBG pH 7.35, VBG pCO2 51.3 H, VBG pO2 21.7 L, VBG HCO3 27.6, VBG Total CO2 29.1 H, VBG O2 Saturation 39.3 L, VBG Base Excess 1.9, VBG Lactic Acid 2.6 H 07/17/25 16:50: Urine Color Yellow, Urine Appearance Clear, Urine pH 6.0, Ur Specific Maury 1.020, Urine Protein Negative, Urine Glucose (UA) 3+, Urine Ketones Negative, Urine Blood Negative, Urine Nitrate Negative, Urine Bilirubin Negative, Urine Urobilinogen 0.2, Ur Leukocyte Esterase Negative, Urine RBC None, Urine WBC Occasional, Ur Squamous Epith Cells None, Urine Bacteria Trace Orders (Tests/Meds): ED MEDICATIONS Generic Name Dose Route Start Last Admin Trade Name Freq PRN Reason Stop Dose Admin Sodium Chloride 1,000 mls @ 125 mls/hr 07/17/25 23:15 07/17/25 23:19 Sod Chlor 0.9% 1000ml Bag IV 08/16/25 23:14 125 mls/hr .Q8H HONG Administration Discontinued Medications Generic Name Dose Route Start Last Admin Trade Name Freq PRN Reason Stop Dose Admin Aspirin 325 mg 07/17/25 17:22 07/17/25 17:33 Aspirin 325mg Tablet PO 07/17/25 17:23 325 mg ONCE ONE Administration Clopidogrel Bisulfate 300 mg 07/17/25 18:21 07/17/25 18:39 Clopidogrel 300mg Tablet PO 07/17/25 18:22 300 mg ONCE ONE Administration Iopamidol 80 ml 07/17/25 17:34 07/17/25 17:35 Iopamidol-370 (76%);100ml Bottle IV 07/17/25 17:35 80 ml ONCE ONE Administration Sodium Chloride 10 ml 07/17/25 17:34 07/17/25 17:35 Sodium Chloride 0.9% 10ml Syr (Rad Only) IV 07/17/25 17:35 10 ml ONCE ONE Administration Sodium Chloride 50 ml 07/17/25 17:34 07/17/25 17:35 0.9 % Sodium Chloride 50 Ml Vial IV 07/17/25 17:35 50 ml ONCE ONE Administration ORDERS Category Date Time Status CT angio head Stat Cat Scan 07/17/25 17:[address] angio neck Stat Cat Scan 07/17/25 17:[address] head/brain wo con Stat Cat Scan 07/17/25 15:50 Completed CBC w/Auto Diff [Complete Blood Count Auto Diff] Stat Lab 07/17/25 16:30 Completed CMP [Comprehensive Metabolic Panel] Stat Lab 12/13/25 16:30 Completed Hemoglobin A1C Stat Lab 07/17/25 16:30 Completed POC Glucose,Bedside Routine Lab 07/17/25 15:18 Completed Urinalysis and Microscopic Stat Lab 07/17/25 16:50 Completed Venous Blood Gas Stat RT 07/17/25 16:34 Completed Medical Decision Narrative: In summary patient is a 70-year-old male who presents to the emergency department for evaluation of altered mental status for 10 days, niece at bedside states symptoms have been going on for about 10 days and patient refused to go be evaluated. She states he had an episode at home where he was trying to sit on the couch knees first, after sitting for a little bit he got up with the irregular gait walked into the kitchen and was wondering around when she asked what he was doing he states I do not know. Patient is hemodynamically stable upon arrival, afebrile. Unremarkable physical exam Bashir Coma Scale 15. Differential diagnosis includes TIA, stroke, UTI. Initial workup will be conducted with labs, CT of the head- No acute intracranial hemorrhage.Well-delineated low attenuation in the superior right frontal lobe may represent evolving infarction. 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 Severe multifocal intracranial atherosclerotic change,cta neck- The right vertebral artery is occluded in the neck. The cervical vasculature is otherwise patent. there is asymmetry to the right tongue base soft tissues protruding into the vallecula. Correlate with direct inspection. - results called to [facility])-recommends 300 mg Plavix one-time urine. Initial workup reviewed by me glucose 331 A1c ordered, white count normal, urine normal. Upon repeat evaluation with CT showing progression of a stroke unknown timing. Given this patient will be transferred to [facility] Dr. Mcgregor accepted Radu Wu MD: At the time that I assumed care of the patient he was pending transport to [facility]. He remained stable throughout his ED visit. He is mildly tachycardic. Will start maintenance fluids on him. He has been ambulatory here in the emergency department with continued NIH of 0. Has been significant delay in transportation given [place] transport by our ground EMS crew. Due to weather, flight crew's are not transporting at this time. Cnuha: Patient remained in the ER until ground transportation became available. At 0031 the EMS crew arrived to the hospital. Patient was reassessed at this time and remains GCS 15, NIH 0, ambulatory, tolerating oral intake. He is hemodynamically stable, protecting his airway, and appropriate for transport. Maintenance fluids were stopped. He is appropriate for transfer by [facility] ambulance and was transferred in stable condition. Critical Care <Lora Mckeon ([facility]), EQUIPMENT COORDINATOR - Last Filed: 07/17/25 18:21> Critical Care Time Critical Care Time: No
--- NOTE | 2025-07-17 15:50 | CT_ITS ---
PROCEDURE INFORMATION: Exam: CT Head Without Contrast Exam date and time: 07/17/2025 4:16 PM Age: 70 years old Clinical indication: Altered mental status/memory loss; Additional info: AMS TECHNIQUE: Imaging protocol: Computed tomography of the head without contrast. Radiation optimization: All CT scans at this facility use at least one of these dose optimization techniques: automated exposure control; mA and/or kV adjustment per patient size (includes targeted exams where dose is matched to clinical indication); or iterative reconstruction. COMPARISON: No relevant prior studies available. FINDINGS: Brain: No acute intracranial hemorrhage.. Well-delineated low attenuation in the superior right frontal lobe may represent evolving infarction. There is mild diffuse heterogeneity of the white matter attenuation, consistent with chronic white matter ischemic changes. Mild cerebral atrophy Cerebral ventricles: No ventriculomegaly. Paranasal sinuses: Visualized sinuses are unremarkable. No fluid levels. Mastoid air cells: Visualized mastoid air cells are well aerated. Bones: Unremarkable. No acute fracture. Soft tissues: Unremarkable. IMPRESSION: 1. No acute intracranial hemorrhage.. 2. Well-delineated low attenuation in the superior right frontal lobe may represent evolving infarction.
[2025-07-17 16:39] LABS: Hematocrit 52.1 % (42.0-52.0); Hemoglobin 17.9 g/dL (14.1-18.0); Immature Granulocytes % 0.4 %; Mean Corpuscular HGB Conc 34.4 g/dL (31.8-35.4); Mean Corpuscular Hemoglobin 30.9 pg (27.0-31.2); Mean Corpuscular Volume 89.8 fl (80-94); Nucleated Red Blood Cells % 0 %; Platelet Count 282 K/mm3 (142-424); Red Blood Count 5.80 M/mm3 (4.60-6.20); Red Cell Distribution Width-SD 38.7 fL; White Blood Count 9.2 K/mm3 (4.8-10.8)
[2025-07-17 16:40] LABS: Lactate Venous 2.6 mmol/L (0.4-2.0); VBG HCO3 27.6 mmol/L (23-30); VBG PCO2 51.3 mmol/L (35-51); VBG PH 7.35 mmol/L (7.31-7.41); VBG PO2 21.7 mmol/L (28-40)
[2025-07-17 16:43] LABS: Chloride 101 mmol/L (98-107)
[2025-07-17 16:44] LABS: Albumin Level 4.9 g/dl (3.5-5.0); Potassium 4.6 mmoL/L (3.5-5.1); Sodium 142 mmol/L (136-145)
[2025-07-17 16:47] LABS: Alanine Aminotransferase 24 U/L (12-78); Albumin/Globulin Ratio 1.3 (1.1-1.8); Alkaline Phosphatase 103 U/L (38-126); Anion Gap 17.6 mEq/L (5-15); Aspartate Amino Transferase 36 U/L (17-59); Bilirubin,Total 0.8 mg/dl (0.2-1.3); Blood Urea Nitrogen 20 mg/dl (9-20); Calcium 10.8 mg/dl (8.4-10.2); Carbon Dioxide 28 mmol/L (22.0-30.0); Creatinine Clearance Estimated 85 mL/min (50-200); Creatinine,Serum 1.00 mg/dl (0.66-1.25); Estimated Glomerular Filt Rate 74 ml/min (>60); GFR (African American) 90 ML/MIN (>60); Globulin 3.7 g/dL (1.3-3.2); Glucose 331 mg/dl (74-100); Total Protein,Serum 8.6 g/dl (6.3-8.2)
[2025-07-17 16:55] LABS: Microscopic, Urine URINE MICROSCOPIC (MICROSCOPIC)
[2025-07-17 16:57] LABS: Bilirubin,Urine Negative (Negative); Color,Urine YELLOW (Yellow); Glucose,Urine (UA) 3+ (Negative); Ketones,Urine Negative (Negative); Leukocyte Esterase,Urine Negative (Negative); PH,Urine 6.0 (5.0-8.5); Protein,Urine Negative (Negative); Specific Gravity, Urine 1.020 (1.005-1.030); Urobilinogen,Urine 0.2 EU/dl (0.2)
[2025-07-17 17:12] LABS: Bacteria,Urine Trace /lpf; WBC,Urine Occasional #/hpf (0-3)
--- NOTE | 2025-07-17 17:14 | CT_ITS ---
PROCEDURE INFORMATION: Exam: CTA Head With Contrast, Arteriography Exam date and time: 07/17/2025 5:26 PM Age: 70 years old Clinical indication: Stroke-like symptoms; Altered mental status/memory loss TECHNIQUE: Imaging protocol: Computed tomographic angiography of the head with contrast. Exam focused on the arteries. AI vessel analysis not performed. 3D rendering (Not supervised by radiologist): MIP and/or 3D reconstructed images were created by the technologist. Radiation optimization: All CT scans at this facility use at least one of these dose optimization techniques: automated exposure control; mA and/or kV adjustment per patient size (includes targeted exams where dose is matched to clinical indication); or iterative reconstruction. Contrast material: ISOVUE; Contrast volume: 80 ml; Contrast route: INTRAVENOUS (IV); COMPARISON: CT HEAD/BRAIN WO CON 07/17/2025 4:16 PM FINDINGS: ANTERIOR CIRCULATION: Right internal carotid artery: The right ICA has mild stenosis in the petrous segment and severe stenosis in the distal cavernous segment with focal occlusion. The paraclinoid ICA has reconstitution of flow which may be retrograde. Right middle cerebral artery: There is severe stenosis at the right MCA bifurcation in several proximal M2 branches. No definite occlusion seen. Click AI Right anterior cerebral artery: The A1 segment of the right SARAY is diffusely hypoplastic which may be congenital. Right anterior cerebral artery is patent. No significant stenosis. No aneurysm. Anterior communicating artery: No anterior communicating artery aneurysm seen. Left internal carotid artery: Atherosclerotic changes left internal carotid artery with moderate stenosis. Left middle cerebral artery: There is severe stenosis distal M1 segment of the left MCA. No occlusion is seen. Left anterior cerebral artery: Left anterior cerebral artery is patent. No significant stenosis. No aneurysm. POSTERIOR CIRCULATION: Right vertebral artery: The right vertebral artery is occluded intracranially. The right PICA flow appears to be supplied by collaterals. Left vertebral artery: The left vertebral artery has severe focal stenosis in the midportion and moderate scattered distal stenoses. Basilar artery: The basilar artery has severe stenosis near its tip with scattered mild stenoses otherwise. Right posterior cerebral artery: The right [employer] severe stenosis in the P1 segments and mild stenosis in the P2 segment. No occlusion. Left posterior cerebral artery: The left [employer] has origin. There is a severe focal stenosis in the P2 segment proximally and again distally without visualized occlusion. Superior cerebellar arteries: There is severe stenosis of the origin of the right superior cerebellar artery. Veins: Visualized dural venous sinuses grossly patent on this study optimized for arterial assessment. Brain: Region of hypodensity in the right frontal lobe laterally again present suspicious for ischemia. There is no mass effect or midline shift seen. No definite vascular malformation. Cerebral ventricles: Ventricular size is unchanged. No significant interval enlargement. Bones/joints: No displaced calvarial fracture identified. Soft tissues: No acute soft tissue findings. IMPRESSION: 1. 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 2. 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 3. Severe multifocal intracranial atherosclerotic changes, as described. PROCEDURE INFORMATION: Exam: CTA Neck With Contrast Exam date and time: 07/17/2025 5:26 PM Age: 70 years old Clinical indication: Stroke-like symptoms; Altered mental status/memory loss TECHNIQUE: Imaging protocol: Computed tomographic angiography of the neck with contrast. Exam focused on the cervical segments of the vasculature. 3D rendering (Not supervised by radiologist): MIP and/or 3D reconstructed images were created by the technologist. Radiation optimization: All CT scans at this facility use at least one of these dose optimization techniques: automated exposure control; mA and/or kV adjustment per patient size (includes targeted exams where dose is matched to clinical indication); or iterative reconstruction. Contrast material: ISOVUE; Contrast volume: 80 ml; Contrast route: INTRAVENOUS (IV); COMPARISON: CT HEAD/BRAIN WO CON 07/17/2025 4:16 PM FINDINGS: Right common carotid artery: The right common carotid artery is widely patent. No stenosis. Right internal carotid artery: Atherosclerotic changes proximal right internal carotid artery are seen without significant stenosis. Right external carotid artery: Right external carotid artery has no visible occlusion. Left common carotid artery: The left common carotid artery is widely patent. No stenosis. Left internal carotid artery: Atherosclerotic changes proximal left internal carotid artery are seen without significant stenosis. Left external carotid artery: Left external carotid artery has no visible occlusion. Right vertebral artery: The right vertebral artery is occluded. There is some faint intermittent opacification in the distal V2 and V3 segment which may be retrograde. Left vertebral artery: Left vertebral artery is patent. No significant stenosis. No evidence of dissection. Soft tissues: There is asymmetry to the right tongue base soft tissues protruding into the vallecula. No acute soft tissue findings. Bones/joints: Degenerative bony changes. Lungs: Visualized portions of the lung apices are unremarkable. Other findings: Visualized mediastinal vasculature patent. IMPRESSION: 1. The right vertebral artery is occluded in the neck. The cervical vasculature is otherwise patent. 2. There is asymmetry to the right tongue base soft tissues protruding into the vallecula. Correlate with direct inspection. REFERENCES: NASCET CRITERIA. The degree of stenosis in the cervical segment of the internal carotid artery is based on NASCET criteria. Normal is no stenosis. Mild is less than 50% stenosis. Moderate is 50-69% stenosis. Severe is 70% to 99% stenosis. Total occlusion is no detectable patent lumen.
--- NOTE | 2025-07-17 17:19 | PC.NURSE ---
called [facility] media relations coordinator, Lora speaking with them now
[2025-07-17] MEDS: ASPIRIN 325MG TABLET 325 MG PO (17:33)
[2025-07-17] MEDS: 0.9 % SODIUM CHLORIDE 50 ML VIAL IV (17:35)
[2025-07-17] MEDS: SODIUM CHLORIDE 0.9% 10ML SYR (RAD ONLY) 10 ML IV (17:35)
[2025-07-17] MEDS: IOPAMIDOL-370 (76%);100ML BOTTLE 80 ML IV (17:35)
--- NOTE | 2025-07-17 17:51 | PC.NURSE ---
Attempted to call report to [facility] at this time, unsure who receiving RN will be. Gave callback number for nurse to take report julissa.
[2025-07-17 20:20] LABS: Hemoglobin A1C 10.8 % (4.0-6.0)
[2025-07-17 20:40] LABS: Reflex Lactic Add Lactic Reflex
[2025-07-17] MEDS: 0.9 % SODIUM CHLORIDE 1000ML 1,000 ML 125 ML IV (23:19)
[2025-07-18] VITALS: BP 145/88; PULSE 104; RESP 13; O2SAT 99
[2025-07-18 00:15] VITALS: PULSE 102; RESP 13; O2SAT 98
[2025-07-18 00:30] VITALS: PULSE 112; O2SAT 98
[2025-07-18 00:42] VITALS: BP 145/88; PULSE 112; RESP 13; TEMP 36.9; O2SAT 98
== END 2025-07-18 00:43 | disposition short-term general hospital (02) ==
PROVIDERS: Nurse Practitioner Family; Emergency Provider Student in an Organized Health Care Education/Training Program; PCP Nurse Practitioner
DX: I63.89 Other cerebral infarction (principal); R41.82 Altered mental status, unspecified; R00.0 Tachycardia, unspecified; R73.9 Hyperglycemia, unspecified
CPT/HCPCS: 70450; 70496; 70498; 80053; 81001; 82803; 82962; 83036; 85025; 96360; 99285; J7030; Q9967

== ENCOUNTER 2025-07-26 10:19 | Emergency (ER) | payer MEDICARE, SELFPAY ==
--- OUTSIDE RECORDS SUMMARY | 2025-07-18 02:17 | XMS_ITS | Encounter Summary ---
Author Organization [facility] Address [address] [place] [address] Care Team Providers Care Cookie Mixer Helper Name Role Phone Sera Newell APRN Primary Care Provider [phone] Reason for Referral * Speech Pathology (Routine) - Pending Review Specialty Diagnoses / Procedures Referred By Contkristen t Referred To Contact Speech Pathology Diagnoses Ischemic stroke of frontal lobe Procedures [place] OFFICE/OUTPATIENT NEW MODERATE MDM 45 MINUTES Flaca Lam MD [address] [place] [address] Phone: tel: fax: Referral ID Status Reason Start Date Expiration Date Visits Requested Visits Authorized [id number] Pending Review Specialty Services Required 5 10/18/2026 1 1 * Physical Therapy (Routine) - Pending Review Specialty Diagnoses / Procedures Referred By Lay lucas Referred To Contact Physical Therapy Diagnoses Ischemic stroke of frontal lobe Procedures [place] OFFICE/OUTPATIENT NEW MODERATE MDM 45 MINUTES Flaca Lam MD [address] [place] [address] Phone: tel: fax: Referral ID Status Reason Start Date Expiration Date Visits Requested Visits Authorized [id number] Pending Review Specialty Services Required 5 10/18/2026 1 1 * Consultation (Routine) - Pending Review Specialty Diagnoses / Procedures Referred By Contac t Referred To Contact Neurology Diagnoses Ischemic stroke of frontal lobe Procedures [place] OFFICE/OUTPATIENT NEW MODERATE MDM 45 MINUTES Vesna Thompson APRN [address] [place] [address] Phone: tel: fax: Daya Aguilar APRN [address] [place] [address] Phone: tel: fax: Referral ID Status Reason Start Date Expiration Date Visits Requested Visits Authorized [id number] Pending Review Specialty Services Required 10/18/2026 1 1 Reason for Visit * Auth/Cert Specialty Diagnoses / Procedures Referred By Contac t Referred To Contact Diagnoses Cerebrovascular Accident (CVA) Referral ID Status Reason Start Date Expiration Date Visits Re quested Visits Authorized [id number] 1 1 Encounter Details Date Type Department Care Team (Late st Contact Info) Description 07/18/2025 2:17 AM EST - 07/19/2025 4:31 PM EST Hospital Encounter [facility] [address] [place] [address] Gloria Mcgregor MD [address] Chanelle Goyal MD [address] [facility] [address] [place] [address] Paul Cronin MD [address] [place] [id number] Flaca Lam MD [address] [facility] [address] [place] [address] Ischemic stroke of frontal lobe (Primary Dx); Cognitive communication disorder Discharge Disposition: Home or Self Care Social History Tobacco Use Types Packs/Day Years Used Date Smoking Tobacco: Former Cigarettes Q uit: 1995 Smokeless Tobacco: Never Alcohol Use Standard Drinks/Week Comments Never 0 (1 standard drink = 0.6 oz pur e alcohol) AUDIT-C Answer Date Recorded Q1: How often do you have a drink containing alcohol? Never 07/18/2025 Q2: How many drinks containi ng alcohol do you have on a typical day when you are drinking? Patient does not drink Q3: How often do you have si x or more drinks on one occasion? Never 07/18/2025 Overall Financial Resource Strain (CARDIA) Answe r Date Recorded How hard is it for you to pa y for the very basics like food, housing, medical care, and heating? Not very hard 07/19/2025 [facility] - Occupational Stress Questionnaire Answer Date Recorded Do you feel stress - tense, restless, nervous, or anxious, or unable to sleep at night because your mind is troubled all the time - these days? Not at all 07/19/2025 Exercise Vital Sign Answer Date Recorde d On average, how many days pe r week do you engage in moderate to strenuous exercise (like a brisk walk)? 3 days 07/19/2025 On average, how many minutes do you engage in exercise at this level? 20 min 07/19/2025 Hunger Vital Sign Answer Date Recorded Within the past 12 months, y ou worried that your food would run out before you got the money to buy more. Never true 07/19/20 25 Within the past 12 months, t he food you bought just didn't last and you didn't have money to get more. Never true 07/19/2025 PRAPARE - Transportation Answer Date Re corded In the past 12 months, has l ack of transportation kept you from medical appointments or from getting medications? No 07/05 In the past 12 months, has l ack of transportation kept you from meetings, work, or from getting things needed for daily living? No 07/19/2025 [facility] Utilities Answer Date Recorded In the past 12 months has th e electric, gas, oil, or water company threatened to shut off services in your home? No 07/19/2025 Abuse Screen Answer Date Recorded Feels Unsafe at Home or Work/School no 07/18/2025 Feels Threatened by Someone no 07/05 Does Anyone Try to Keep You From Having Contact with Others or Doing Things Outside Your Home? no 07/18/2025 Physical Signs of Abuse Present no 07/18/2025 Housing Stability Answer Date Recorded Current Living Arrangements home 07/05 Potentially Unsafe Housing Conditions none 07/19/2025 Family and Community Support Answer Pato e Recorded If for any reason you need h elp with day-to-day activities such as bathing, preparing meals, shopping, managing finances, etc., do you get the help you need? I don't need any help 07/19/2025 How often do you feel lonely or isolated from those around you? Never 07/19/2025 Employment Answer Date Recorded Do you want help finding or keeping work or a job? I do not need or want help 07/19/2025 Disabilities Answer Date Recorded Difficulty Concentrating, Remembering or Making Decisions no 07/19/2025 Difficulty Managing Errands Independently no 07/19/2025 Education Answer Date Recorded Do you want help with school or training? For example, starting or completing job training or getting a high school diploma, GED or equivalent No 07/19/2025 Preferred Language Omani 07/19/2025 PHQ-2 Answer Date Recorded Patient Health Questionnaire-2 Score 0 07/19/2025 Sex and Gender Information Value Date Recorded Sex Assigned at Not on file Legal Sex Male 5:24 PM EST Gender Identity Not on file Sexual Orientation Not on file documented as of this encounter Last Filed Vital Signs Vital Sign Reading Time Taken Comments Blood Pressure 138/74 07/19/2025 3:15 PM EST Pulse 99 07/19/2025 11:05 AM EST Temperature 36.6 C (97.9 F) 07/19/2025 3:15 PM EST Respiratory Rate 16 07/19/2025 3:15 PM EST Oxygen Saturation 95% 07/19/2025 11:05 AM EST Inhaled Oxygen Concentration - - Weight 84.4 kg (186 lb 1.1 oz) 07/19/2025 4:15 A M EST Height 160 cm (5' 3 ) 07/18/2025 7:50 AM EST Body Mass Index 32.96 07/18/2025 7:50 AM EST documented in this encounter Functional Status * AUDIT-C (Alcohol Use Disorders Identification Test) Question Answer Date of Assessment Author AUDIT-C Score 0 07/18/2025 2:21 AM Saide Roach RN Q1: How often do you have a drink containing alcohol? Never 07/18/2025 2:21 AM Louis Suarez RN Q2: How many drinks containing alcohol do you have on a typical day when you are drinking? Patient does not drink 07/18/2025 2:21 AM Sadie Suarez RN Q3: How often do you have six or more drinks on one occasion? Never 07/18/2025 2:21 AM Louis Suarez RN * Over the past 2 weeks, how often have you been bothered by any of the following problems? Question Answer Date of Assessment Author Patient Health Questionnaire -2 Score 0 07/19/2025 9:35 AM Rosaura Schneider RN * Suicidal Ideation (Past 1 Month) Question Answer Date of Assessment Author 1. Wish to be (Past 1 Month) No 07/18/2025 2:24 AM Louis Suarez RN 2. Non-Specific Active Suicidal Thoughts (Past 1 Month) No 07/18/2025 2:24 AM Louis Suarez RN * Calculated C-SSRS Risk Score (Lifetime/Recent) Answer Date of Assessment Author No Risk Indicated 07/18/2025 2:24 AM Sadie Suarez RN * [place] Suicide Severity Rating Scale (Screener/Recent Self-Report) Question Answer Date of Assessment Author 6. Suicidal Behavior (Lifetime) No 07/18/2025 2:24 AM Louis Suarez RN * Mental Health Question Answer Date of Assessment Author Little interest or pleasure in doing things Not at all 07/19/2025 9:35 AM Rosaura Schneider RN Feeling down, depressed, or hopeless Not at all 07/19/2025 9:35 AM Rosaura Schneider RN documented as of this encounter Discharge Summaries * Rosaura Wright RN - 07/19/2025 3:02 PM EST Images from the original note were not included. Eliel Spence (70 y.o. Male) Case Management [phone] Date of 1955 Social Security Number [id number] Address [address] [place] [address] Orthodoxy Non-Religion Marital Status Admission Date 07/18/2025 Admission Type Urgent Admitting Provider Flaca Lam MD Attending Provider Flaca Lam MD Department, Room/Bed [facility] 3E, S343/1 Discharge Date Discharge Disposition Home or Self Care Discharge Destination Attending Provider: Flaca Lam MD Allergies: No Known Allergies Isolation: None Infection: None Code Status: CPR Ht: 160 cm (63 ) Wt: 84.4 kg (186 lb 1.1 oz) Admission Cmt: None Principal Problem: Ischemic stroke of frontal lobe [I63.9] Active Insurance as of 07/18/2025 Primary Coverage Payor Plan Insurance Group Employer/Plan Group MEDICARE MEDICARE A & B Payor Plan Address Payor Plan Phone Number Payor Plan Fax Number Effective Dates [phone] 02/02/2022 - None Entered [place] [id number] Subscriber Name Subscriber Date Member ID ELIEL SPENCE 1955 [id number] Emergency Contacts Central Office Worker (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 [address] Date: Jul 19, 2025 Ambulatory Referral to Physical Therapy for Evaluation & Treatment Patient: Eliel Spence [address] [address] : 1955 SSN: [id number] Sex: M INSURANCE PAYOR PLAN GROUP # SUBSCRIBER ID Primary: MEDICARE [id number] Referring Provider Information: FLACA LAM Referral Information: # Visits: 1 Referral Type: Physical Therapy [AE1] Urgency: Routine Referral Reason: Specialty Services Required Start Date: Jul 19, 2025 End Date: To be determined by Insurer Diagnosis: Ischemic stroke of frontal lobe (I63.9) Refer to Dept: Refer to Provider: Refer to Provider Phone: Refer to Facility: Specialty needed: Evaluate and treat Follow-up needed: Yes This document serves as a request of services and does not constitute Insurance authorization or approval of services. To determine eligibility, please contact the members Insurance carrier to verifyand review coverage. If you have medical questions regarding this request for services. Please contact [address] at [phone] during normal business hours. Authorizing Provider:Flaca Lam MD Authorizing Provider's Order Entered By: Rosaura Wright RN 07/19/2025 2:59 PM Electronically signed by: Flaca Lam MD 07/19/2025 2:59 PM History & Physical Chanelle Goyal MD at 07/18/25 0224 [facility] Medicine Services HISTORY AND PHYSICAL Patient Name: Eliel Spence : 1955 Primary Care Physician: Provider, No Known Date of admission: 07/18/2025 Subjective Subjective Chief Complaint: Altered mental status HPI: Eliel Spence is a 70 y.o. male with no significant past medical history who was transferred from [facility] for higher-level care after family reported altered mental status. Imaging at the outside hospital revealed an acute to subacute right frontal lobe infarct. He presented with confusion, dysphagia, hyperglycemia, and a dental abscess. Family reported intermittent disorientation and memory lapses that began prior to a recent dental procedure with anesthesia and worsened afterward. He exhibited unusual behaviors, including mismatched footwear and improperclothing placement. His confusion progressed, with a notable episode on the day of presentation prompting ER evaluation. The patient denied focal weakness, visual changes, chest pain, shortness of breath, or gait instability. He has chronic right-sided hearing loss and reports morning dizziness upon standing without falls. He has experienced dysphagia for approximately one year, frequent urination, and jaw pain following a dental procedure, for which he completed antibiotics. He does not have a primary care provider, takes no routine medications aside from a multivitamin, and reports no tobacco, alcohol, or drug use. In the emergency department, he was hemodynamically stable with an NIHSS of 0. CT head showed a subacute right frontal lobe infarct. 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 Labs were notable for hyperglycemia with a glucose of 331 mg/dL. The stroke team recommended transfer for further evaluation, including MRI. The patient was loaded with aspirin and Plavix prior to transfer, and hospitalist services were consulted for admission and ongoing management. Personal History History reviewed. No pertinent past medical history. History reviewed. No pertinent surgical history. Family History: Non family history is not on file. Social History: reports that he quit smoking about 29 years ago. His smoking use included cigarettes. He has never used smokeless tobacco. He reports that he does not drink alcohol and does not use drugs. Social History Social History Narrative Not on file Medications: Not on File Objective Objective Vital Signs: Physical Exam Constitutional: General: He is not in acute distress. Appearance: Normal appearance. He is normal weight. He is not ill-appearing, toxic-appearing or diaphoretic. HENT: Head: Normocephalic and atraumatic. Nose: Nose normal. Mouth/Throat: Mouth: Mucous membranes are dry. Comments: Has recent left lower molar tooth extraction with signs of infection abscess and lymph node enlargement of submandibular area with tenderness on examination Eyes: General: Right eye: No discharge. Left eye: No discharge. Extraocular Movements: Extraocular movements intact. Conjunctiva/sclera: Conjunctivae normal. Pupils: Pupils are equal, round, and reactive to light. Cardiovascular: Rate and Rhythm: Regular rhythm. Tachycardia present. Pulses: Normal pulses. Heart sounds: Normal heart sounds. No murmur heard. No friction rub. No gallop. Pulmonary: Effort: Pulmonary effort is normal. No respiratory distress. Breath sounds: Normal breath sounds. No wheezing or rales. Abdominal: General: Abdomen is flat. Bowel sounds are normal. There is no distension. Palpations: Abdomen is soft. There is no mass. Tenderness: There is no abdominal tenderness. There is no guarding or rebound. Hernia: A hernia is present. Comments: Noted left lower abdomen scar with previous surgery no signs of infection healed nicely, suspected ventral hernia on the suprapubic area right above the umbilical area, no signs of incarceration Musculoskeletal: General: No swelling or tenderness. Normal range of motion. Cervical back: Normal range of motion and neck supple. No rigidity or tenderness. Right lower leg: No edema. Left lower leg: No edema. Skin: General: Skin is warm and dry. Capillary Refill: Capillary refill takes less than 2 seconds. Findings: No lesion or rash. Neurological: General: No focal deficit present. Mental Status: He is alert and oriented to person, place, and time. Mental status is at baseline. Cranial Nerves: No cranial nerve deficit. Sensory: No sensory deficit. Motor: No weakness. Coordination: Coordination normal. Gait: Gait normal. Deep Tendon Reflexes: Reflexes normal. Psychiatric: Mood and Affect: Mood normal. Behavior: Behavior normal. Judgment: Judgment normal. Result Review: I have personally reviewed the results from the time of this admission to 07/18/2025 04:32 EST and agree with these findings: [x] Laboratory list / accordion [] Microbiology [x] Radiology [x] EKG/Telemetry [] Cardiology/Vascular [] Pathology [x] Old records [] Other: Most notable findings include: Reviewed ER notes transferred from OSH Results LAB RESULTS: Lab 07/18/25 0250 WBC 10.50 HEMOGLOBIN 16.9 HEMATOCRIT 48.9 PLATELETS 268 NEUTROS ABS 6.81 IMMATURE GRANS (ABS) 0.05 LYMPHS ABS 2.81 MONOS ABS 0.65 EOS ABS 0.14 MCV 89.4 Lab 07/18/25 0251 07/18/25 0250 SODIUM 137 -- POTASSIUM 3.9 -- CHLORIDE 101 -- CO2 25.5 -- ANION GAP 10.5 -- BUN 15.4 -- CREATININE 0.87 -- EGFR 94.0 -- GLUCOSE 232* -- CALCIUM 10.3 -- MAGNESIUM 1.9 -- HEMOGLOBIN A1C -- 10.90* Lab 07/18/25 025 TOTAL PROTEIN 7.2 ALBUMIN 4.0 GLOBULIN 3.2 ALT (SGPT) 14 AST (SGOT) 19 BILIRUBIN 0.8 ALK PHOS 95 Lab 07/18/25 0251 CHOLESTEROL 233* LDL CHOL 146* HDL CHOL 31* TRIGLYCERIDES 305* Brief Urine Lab Results None Microbiology Results (last 10 days) No results found for the last [address] Outside Head Result Date: 07/17/2025 This procedure was auto-finalized with no dictation required. CT Outside Head Result Date: 07/17/2025 This procedure was auto-finalized with no dictation required. CT Outside Head Result Date: 07/17/2025 This procedure was auto-finalized with no dictation required. Assessment & Plan Assessment & Plan Ischemic stroke of frontal lobe Dysphagia Dental abscess Type 2 diabetes mellitus with hyperglycemia Mixed hyperlipidemia Sinus tachycardia Elevated blood pressure reading 70-year-old male with no significant past medical history was transferred from [facility] for higher-level care after family noted progressive altered mental status, with outside imaging showing an acute to subacute right frontal lobe infarct. He presented with confusion, dysphagia,hyperglycemia, and a recent dental abscess, with family reporting intermittent disorientation and unusual behaviors that began prior to a recent dental procedure with anesthesia and worsened afterward. In the emergency department, he was hemodynamically stable with an NIHSS of 0; CT head confirmed a subacute right frontal infarct, and CTA revealed occlusion of the right cavernous internal carotidartery and right vertebral artery of unclear chronicity, with labs notable for glucose of 331 mg/dL. The stroke team recommended transfer for further evaluation including MRI, and the patient was loaded with aspirin and Plavix prior to admission for ongoing management. Assessment & Plan Code Status: Full code 1. 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 Concern for cryptogenic etiology, atheroembolic likely on differential diagnosis especially after recent tooth extraction and oral procedure - CT scan of the neck showed some arterial narrowing as documented above -Stroke team already on board - MRI ordered pending result - N.p.o. for now, speech evaluation in a.m. - Echocardiogram with bubble study pending result - Carotid ultrasound in a.m. - Neurocheck and neurovascular check, NIH score per protocol - Treat elevated blood pressure if indicated as history of symptoms seems past more than 72 hours - PT OT, speech eval - CT scan from OSH reviewed and addressed - Consider neurosurgery evaluation for vertebral and ICA artery occlusion after carotid ultrasound to consider further evaluation 2. # Hyperglycemia # Newly diagnosed T2DM --> A1c 10.90 today - Reports frequent urination and suspects high blood sugar levels -SSI and Accu-Chek per protocol - Consider start insulin/p.o. medication upon discharge from the hospital - He will need follow-up with PCP for further management as an outpatient - Diabetic education consulted 3. Mixed hyperlipidemia (hypercholesterolemia /hypertriglyceridemia) Newly diagnosed today, not on medication Lipid panel ordered at admission with cholesterol 233, HDL 31, LDL not at the target 146, VLDL 56 and triglyceride 305 -Start high-dose atorvastatin 80 mg once daily - Repeat lipid panel in 3 months after follow-up with PCP - Nutrition, diabetic education consulted 4. # Elevated blood pressure reading/concern for new HTN; # Sinus tachycardia: - Vital signs every 4 hours - Goal to keep SBP less than 160 while inpatient - Consider start antihypertensive medication at discharge - EKG ordered, reviewed with sinus tachycardia, rule out STEMI, normal QTc, and nonspecific T wave abnormality. - Start IV fluid while n.p.o. to monitor for his tachycardia -Consider beta-chelsey as needed if needed - Echocardiogram ordered pending result to evaluate valvular anatomy and EF 4. Dental abscess - Abscess in the mouth, completed a course of antibiotics with amoxicillin, however patient noted significant swelling and tenderness with lymph node enlargement on the left side of the lower jaw, however WBC normal, but patient reported subjective fever and noted swelling lymphadenopathy on the left SCM muscle -Will start Unasyn IV for now and consider switch to Augmentin passed swallow study Total time spent: 75 minutes Time spent includes time reviewing chart, [id number] time, counseling patient/family/caregiver, ordering medications/tests/procedures, communicating with other health day care center director, documenting clinical information in the electronic health record, and coordination of care. DVT prophylaxis: SCDs CODE STATUS: Full code Expected Discharge 2 days (click hyperlink to enter date then refresh the note) Expected discharge date/ time has not been documented. This note has been completed as part of a split-shared workflow. Signature: Electronically signed by Chanelle Goyal MD, 07/18/25, 4:57 AM EST Patient or patient equal opportunity representative verbalized consent for the use of Ambient Listening during the visit for chart documentation. Contains text generated by [employer] [id number] * Rosaura Wright RN - 07/19/2025 2:59 PM EST Images from the original note were not included. Eliel Spence (70 y.o. Male) Case Management [phone] Date of 1955 Social Security Number [id number] Address [address] [facility] [address] Orthodoxy Non-Religion Marital Status Admission Date 07/18/2025 Admission Type Urgent Admitting Provider Flaca Lam MD Attending Provider Flaca Lam MD Department, Room/Bed [facility] 3E, S343/1 Discharge Date Discharge Disposition Home or Self Care Discharge Destination Attending Provider: Flaca Lam MD Allergies: No Known Allergies Isolation: None Infection: None Code Status: CPR Ht: 160 cm (63 ) Wt: 84.4 kg (186 lb 1.1 oz) Admission Cmt: None Principal Problem: Ischemic stroke of frontal lobe [I63.9] Active Insurance as of 07/18/2025 Primary Coverage Payor Plan Insurance Group Employer/Plan Group MEDICARE MEDICARE A & B Payor Plan Address Payor Plan Phone Number Payor Plan Fax Number Effective Dates [address] 02/02/2022 - None Entered [place] [address] Subscriber Name Subscriber Date Member ID ELIEL SPENCE 1955 [id number] Emergency Contacts 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 [address] Date: Jul 19, 2025 Ambulatory Referral to Speech Therapy for Evaluation & Treatment Patient: Eliel Spence [address] [place] [address] : 1955 SSN: [id number] Sex: M INSURANCE PAYOR PLAN GROUP # SUBSCRIBER ID Primary: MEDICARE [id number] Referring Provider Information: FLACA LAM Referral Information: # Visits: 1 Referral Type: Speech Pathology [AF1] Urgency: Routine Referral Reason: Specialty Services Required Start Date: Jul 19, 2025 End Date: To be determined by Insurer Diagnosis: Ischemic stroke of frontal lobe (I63.9) Refer to Dept: Refer to Provider: Refer to Provider Phone: Refer to Facility: Cognitive communication disorder, dysphagia Follow-up needed: Yes This document serves as a request of services and does not constitute Insurance authorization or approval of services. To determine eligibility, please contact the members Insurance carrier to verifyand review coverage. If you have medical questions regarding this request for services. Please contact [address] at [phone] during normal business hours. Authorizing Provider:Flaca Lam MD Authorizing Provider's Order Entered By: Rosaura Wright RN 07/19/2025 2:59 PM Electronically signed by: Flaca Lam MD 07/19/2025 2:59 PM History & Physical Chanelle Goyal MD at 07/18/25 0224 [facility] Medicine Services HISTORY AND PHYSICAL Patient Name: Eliel Spence : 1955 Primary Care Physician: Provider, No Known Date of admission: 07/18/2025 Subjective Subjective Chief Complaint: Altered mental status HPI: Eliel Spence is a 70 y.o. male with no significant past medical history who was transferred from [facility] for higher-level care after family reported altered mental status. Imaging at the outside hospital revealed an acute to subacute right frontal lobe infarct. He presented with confusion, dysphagia, hyperglycemia, and a dental abscess. Family reported intermittent disorientation and memory lapses that began prior to a recent dental procedure with anesthesia and worsened afterward. He exhibited unusual behaviors, including mismatched footwear and improperclothing placement. His confusion progressed, with a notable episode on the day of presentation prompting ER evaluation. The patient denied focal weakness, visual changes, chest pain, shortness of breath, or gait instability. He has chronic right-sided hearing loss and reports morning dizziness upon standing without falls. He has experienced dysphagia for approximately one year, frequent urination, and jaw pain following a dental procedure, for which he completed antibiotics. He does not have a primary care provider, takes no routine medications aside from a multivitamin, and reports no tobacco, alcohol, or drug use. In the emergency department, he was hemodynamically stable with an NIHSS of 0. CT head showed a subacute right frontal lobe infarct. 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 Labs were notable for hyperglycemia with a glucose of 331 mg/dL. The stroke team recommended transfer for further evaluation, including MRI. The patient was loaded with aspirin and Plavix prior to transfer, and hospitalist services were consulted for admission and ongoing management. Personal History History reviewed. No pertinent past medical history. History reviewed. No pertinent surgical history. Family History: Non family history is not on file. Social History: reports that he quit smoking about 29 years ago. His smoking use included cigarettes. He has never used smokeless tobacco. He reports that he does not drink alcohol and does not use drugs. Social History Social History Narrative Not on file Medications: Not on File Objective Objective Vital Signs: Physical Exam Constitutional: General: He is not in acute distress. Appearance: Normal appearance. He is normal weight. He is not ill-appearing, toxic-appearing or diaphoretic. HENT: Head: Normocephalic and atraumatic. Nose: Nose normal. Mouth/Throat: Mouth: Mucous membranes are dry. Comments: Has recent left lower molar tooth extraction with signs of infection abscess and lymph node enlargement of submandibular area with tenderness on examination Eyes: General: Right eye: No discharge. Left eye: No discharge. Extraocular Movements: Extraocular movements intact. Conjunctiva/sclera: Conjunctivae normal. Pupils: Pupils are equal, round, and reactive to light. Cardiovascular: Rate and Rhythm: Regular rhythm. Tachycardia present. Pulses: Normal pulses. Heart sounds: Normal heart sounds. No murmur heard. No friction rub. No gallop. Pulmonary: Effort: Pulmonary effort is normal. No respiratory distress. Breath sounds: Normal breath sounds. No wheezing or rales. Abdominal: General: Abdomen is flat. Bowel sounds are normal. There is no distension. Palpations: Abdomen is soft. There is no mass. Tenderness: There is no abdominal tenderness. There is no guarding or rebound. Hernia: A hernia is present. Comments: Noted left lower abdomen scar with previous surgery no signs of infection healed nicely, suspected ventral hernia on the suprapubic area right above the umbilical area, no signs of incarceration Musculoskeletal: General: No swelling or tenderness. Normal range of motion. Cervical back: Normal range of motion and neck supple. No rigidity or tenderness. Right lower leg: No edema. Left lower leg: No edema. Skin: General: Skin is warm and dry. Capillary Refill: Capillary refill takes less than 2 seconds. Findings: No lesion or rash. Neurological: General: No focal deficit present. Mental Status: He is alert and oriented to person, place, and time. Mental status is at baseline. Cranial Nerves: No cranial nerve deficit. Sensory: No sensory deficit. Motor: No weakness. Coordination: Coordination normal. Gait: Gait normal. Deep Tendon Reflexes: Reflexes normal. Psychiatric: Mood and Affect: Mood normal. Behavior: Behavior normal. Judgment: Judgment normal. Result Review: I have personally reviewed the results from the time of this admission to 07/18/2025 04:32 EST and agree with these findings: [x] Laboratory list / accordion [] Microbiology [x] Radiology [x] EKG/Telemetry [] Cardiology/Vascular [] Pathology [x] Old records [] Other: Most notable findings include: Reviewed ER notes transferred from OSH Results LAB RESULTS: Lab 07/18/25 0250 WBC 10.50 HEMOGLOBIN 16.9 HEMATOCRIT 48.9 PLATELETS 268 NEUTROS ABS 6.81 IMMATURE GRANS (ABS) 0.05 LYMPHS ABS 2.81 MONOS ABS 0.65 EOS ABS 0.14 MCV 89.4 Lab 07/18/25 0251 07/18/25 0250 SODIUM 137 -- POTASSIUM 3.9 -- CHLORIDE 101 -- CO2 25.5 -- ANION GAP 10.5 -- BUN 15.4 -- CREATININE 0.87 -- EGFR 94.0 -- GLUCOSE 232* -- CALCIUM 10.3 -- MAGNESIUM 1.9 -- HEMOGLOBIN A1C -- 10.90* Lab 07/18/25 0251 TOTAL PROTEIN 7.2 ALBUMIN 4.0 GLOBULIN 3.2 ALT (SGPT) 14 AST (SGOT) 19 BILIRUBIN 0.8 ALK PHOS 95 Lab 07/18/25 0251 CHOLESTEROL 233* LDL CHOL 146* HDL CHOL 31* TRIGLYCERIDES 305* Brief Urine Lab Results None Microbiology Results (last 10 days) No results found for the last [address] Outside Head Result Date: 07/17/2025 This procedure was auto-finalized with no dictation required. CT Outside Head Result Date: 07/17/2025 This procedure was auto-finalized with no dictation required. CT Outside Head Result Date: 07/17/2025 This procedure was auto-finalized with no dictation required. Assessment & Plan Assessment & Plan Ischemic stroke of frontal lobe Dysphagia Dental abscess Type 2 diabetes mellitus with hyperglycemia Mixed hyperlipidemia Sinus tachycardia Elevated blood pressure reading 70-year-old male with no significant past medical history was transferred from [facility] for higher-level care after family noted progressive altered mental status, with outside imaging showing an acute to subacute right frontal lobe infarct. He presented with confusion, dysphagia,hyperglycemia, and a recent dental abscess, with family reporting intermittent disorientation and unusual behaviors that began prior to a recent dental procedure with anesthesia and worsened afterward. In the emergency department, he was hemodynamically stable with an NIHSS of 0; CT head confirmed a subacute right frontal infarct, and CTA revealed occlusion of the right cavernous internal carotidartery and right vertebral artery of unclear chronicity, with labs notable for glucose of 331 mg/dL. The stroke team recommended transfer for further evaluation including MRI, and the patient was loaded with aspirin and Plavix prior to admission for ongoing management. Assessment & Plan Code Status: Full code 1. 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 Concern for cryptogenic etiology, atheroembolic likely on differential diagnosis especially after recent tooth extraction and oral procedure - CT scan of the neck showed some arterial narrowing as documented above -Stroke team already on board - MRI ordered pending result - N.p.o. for now, speech evaluation in a.m. - Echocardiogram with bubble study pending result - Carotid ultrasound in a.m. - Neurocheck and neurovascular check, NIH score per protocol - Treat elevated blood pressure if indicated as history of symptoms seems past more than 72 hours - PT OT, speech eval - CT scan from OSH reviewed and addressed - Consider neurosurgery evaluation for vertebral and ICA artery occlusion after carotid ultrasound to consider further evaluation 2. # Hyperglycemia # Newly diagnosed T2DM --> A1c 10.90 today - Reports frequent urination and suspects high blood sugar levels -SSI and Accu-Chek per protocol - Consider start insulin/p.o. medication upon discharge from the hospital - He will need follow-up with PCP for further management as an outpatient - Diabetic education consulted 3. Mixed hyperlipidemia (hypercholesterolemia /hypertriglyceridemia) Newly diagnosed today, not on medication Lipid panel ordered at admission with cholesterol 233, HDL 31, LDL not at the target 146, VLDL 56 and triglyceride 305 -Start high-dose atorvastatin 80 mg once daily - Repeat lipid panel in 3 months after follow-up with PCP - Nutrition, diabetic education consulted 4. # Elevated blood pressure reading/concern for new HTN; # Sinus tachycardia: - Vital signs every 4 hours - Goal to keep SBP less than 160 while inpatient - Consider start antihypertensive medication at discharge - EKG ordered, reviewed with sinus tachycardia, rule out STEMI, normal QTc, and nonspecific T wave abnormality. - Start IV fluid while n.p.o. to monitor for his tachycardia -Consider beta-chelsey as needed if needed - Echocardiogram ordered pending result to evaluate valvular anatomy and EF 4. Dental abscess - Abscess in the mouth, completed a course of antibiotics with amoxicillin, however patient noted significant swelling and tenderness with lymph node enlargement on the left side of the lower jaw, however WBC normal, but patient reported subjective fever and noted swelling lymphadenopathy on the left SCM muscle -Will start Unasyn IV for now and consider switch to Augmentin passed swallow study Total time spent: 75 minutes Time spent includes time reviewing chart, pdyp-so-[id number] time, counseling patient/family/caregiver, ordering medications/tests/procedures, communicating with other health day care center director, documenting clinical information in the electronic health record, and coordination of care. DVT prophylaxis: SCDs CODE STATUS: Full code Expected Discharge 2 days (click hyperlink to enter date then refresh the note) Expected discharge date/ time has not been documented. This note has been completed as part of a split-shared workflow. Signature: Electronically signed by Chanelle Goyal MD, 07/18/25, 4:57 AM EST Patient or patient equal opportunity representative verbalized consent for the use of Ambient Listening during the visit for chart documentation. Contains text generated by [employer] [id number] * Flaca Lam MD - 07/19/2025 2:18 PM EST Images from the original note were not included. [facility] DISCHARGE SUMMARY Patient Name: Eliel Spence : 1955 Date of Admission: 07/18/2025 2:17 AM Date of Discharge: 07/19/2024 Primary Care Physician: Sera Newell APRN Consults Date and Time Order Name Status Description 07/18/2025 3:00 AM Inpatient Neurology Consult Stroke Hospital Course Presenting Problem: confusion Active Hospital Problems Diagnosis POA Ischemic stroke of frontal lobe [I63.9] Yes Dental abscess [K04.7] Yes Type 2 diabetes mellitus with hyperglycemia [E11.65] Yes Mixed hyperlipidemia [E78.2] Yes Resolved Hospital Problems Diagnosis Date Resolved POA Hyperglycemia [R73.9] 07/18/2025 Yes Dysphagia [R13.10] 07/19/2025 Yes Sinus tachycardia [R00.0] 07/19/2025 Yes Elevated blood pressure reading [R03.0] 07/19/2025 Yes Hospital Course: Eliel Spence is a 70 y.o. male with no significant past medical history but has not regularly followed up w a PCP was transferred from [facility] for higher-level care after family noted progressive altered mental status, with outside imaging showing an acute to subacute right frontal lobe infarct. 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 - Case was discussed with neurosurgery as well as stroke neurology, recommended maximal medical therapy and follow-up outpatient with neurosurgery - Given the symptomatic right ICA severe stenosis blood pressure management is with goal of SBP 120-160. Avoid hypotension. Encouraged hydration. - Stroke clinic follow-up in 4 to 6 weeks - Continue DAPT with aspirin and Plavix for 90 days and then aspirin monotherapy afterwards. Continue atorvastatin 80 Hyperglycemia Newly diagnosed T2DM --> A1c 10.90 - Diabetes education has seen, counseled on importance of glucose checks and insulin administration - Will plan to discharge with [facility] for cost effectiveness given lack of insurance coverage, PCP to follow-up for further titration HTN --BP has remained within goal as mentioned above, off antihypertensives. Continue monitoring at home Mixed hyperlipidemia (hypercholesterolemia /hypertriglyceridemia) -Continue atorvastatin as above Dental abscess - Abscess in the mouth, completed a course of antibiotics with amoxicillin, however patient noted significant swelling and tenderness with lymph node enlargement on the left side of the lower jaw, however WBC normal, but patient reported subjective fever - Complete empiric course of Augmentin Discharge Follow Up Recommendations for outpatient labs/diagnostics: PCP, stroke, basim Day of Discharge HPI: No new issues overnight, discussed diabetes management. at bedside Review of Systems Gen- No fevers, chills CV- No chest pain, palpitations Resp- No cough, dyspnea GI- No N/V/D, abd pain Vital Signs: Temp: [97.8 ??F (36.6 ??C)-98.5 ??F (36.9 ??C)] 98.3 ??F (36.8 ??C) Heart Rate: [86-99] 99 Resp: [16] 16 BP: (116-127)/(67-81) 119/72 Physical Exam: Constitutional: No acute distress, awake, alert HENT: NCAT, mucous membranes moist Respiratory: Clear to auscultation bilaterally, respiratory effort normal Cardiovascular: RRR, no murmurs, rubs, or gallops Gastrointestinal: Positive bowel sounds, soft, nontender, nondistended Musculoskeletal: No bilateral ankle edema Psychiatric: Appropriate affect, cooperative Neurologic: Oriented x 3, strength symmetric in all extremities, Cranial Nerves grossly intact to confrontation, speech clear Skin: No rashes Pertinent and/or Most Recent Results LAB RESULTS: Lab 07/18/25 0454 07/18/25 0250 WBC -- 10.50 HEMOGLOBIN -- 16.9 HEMATOCRIT -- 48.9 PLATELETS -- 268 NEUTROS ABS -- 6.81 IMMATURE GRANS (ABS) -- 0.05 LYMPHS ABS -- 2.81 MONOS ABS -- 0.65 EOS ABS -- 0.14 MCV -- 89.4 LACTATE 1.5 -- Lab 07/18/25 0251 07/18/25 0250 SODIUM 137 -- POTASSIUM 3.9 -- CHLORIDE 101 -- CO2 25.5 -- ANION GAP 10.5 -- BUN 15.4 -- CREATININE 0.87 -- EGFR 94.0 -- GLUCOSE 232* -- CALCIUM 10.3 -- MAGNESIUM 1.9 -- HEMOGLOBIN A1C -- 10.90* Lab 07/18/25 0251 TOTAL PROTEIN 7.2 ALBUMIN 4.0 GLOBULIN 3.2 ALT (SGPT) 14 AST (SGOT) 19 BILIRUBIN 0.8 ALK PHOS 95 Lab 07/18/25 0251 CHOLESTEROL 233* LDL CHOL 146* HDL CHOL 31* TRIGLYCERIDES 305* Brief Urine Lab Results (Last result in the past 365 days) Color Clarity Blood Leuk Est Nitrite Protein CREAT Urine HCG 07/18/25 0800 Yellow Clear Negative Negative Negative 30 mg/dL (1+) Microbiology Results (last 10 days) No results found for the last [address] Soft Tissue Neck With & Without Contrast Result Date: 07/19/2025 CT SOFT TISSUE NECK W WO CONTRAST Date of Exam: 07/19/2025 9:28 AM EST Indication: eval tongue massseen on CTA outside imaging. having dysphagia. Comparison: None available. Technique: Axial CT images were obtained of the neck before and after the uneventful intravenous administration of iodinated contrast. Reconstructed coronal and sagittal images were also obtained. Automated exposure control and iterative construction methods were used. Findings: There is subtle asymmetry of the lingual tonsils, possibly more prominent on the right and potentially accounting for appearance of a mass on outside CT angiogram. There is otherwise no evidence of suspicious aerodigestive tract lesion or otherfocal luminal abnormality. There is no distinct pathologic cervical lymphadenopathy. The parotid and submandibular glands appear normal. Vascular structures are patent. The lung apices are clear. Theosseous structures demonstrate no evidence of acute fracture or suspicious focal osseous lesion. Impression: Essentially normal CT of the neck soft tissues. There is subtle asymmetry of the lingual tonsils, possibly more prominent on the right and potentially accounting for appearance of a mass on outside CT angiogram. Correlation could be made with direct visualization/laryngoscopy. There is no evidence of pathologic cervical lymphadenopathy. Electronically Signed: Sandeep Rios MD 07/19/2025 9:58 AM EST Workstation ID: [id number] Duplex Carotid Ultrasound CAR Result Date: 07/19/2025 Right internal carotid artery is occluded. Abnormal waveforms detected in the right carotid/ICA suggestive of a more distal occlusion. Right vertebral artery is occluded. Left internal carotid arterydemonstrates a less than 50% stenosis. Antegrade left vertebral flow. No previous study available for comparison. MRI Brain Without Contrast Result Date: 07/18/2025 MRI BRAIN WO CONTRAST Date of Exam: 07/18/2025 9:01 AM EST Indication: Stroke, follow up AMS, CTH showing right frontal infarct. Comparison: Outside CTs 07/17/2025 Technique: Routine multiplanar/multisequence sequence images of the brain were obtained without contrast administration. Findings: There is some motion limitation. Diffusion weighted imaging demonstrates moderate area of diffusion restriction abnormality in the right frontal lobe with associated dropout on the ADC map. Additional areas of punctate signal abnormality centered within the right parietal occipital region with associated dropout on the ADC map noted. Associated hypoattenuation on comparison CT noted. There is no eviden ce of additional acute diffusion restriction abnormality. There is associated signal abnormality onFLAIR and T2 weighted imaging compatible with a late acute or subacute age of infarction. Sulcal effacement noted in the right frontal region. Mild increased T1 signal suggest a mild degree of hemorrhagic staining. No overt intraparenchymal hemorrhagic transformation. Additional punctate areas of FLAIR and T2 signal hyperintensity within the brain parenchyma most compatible sequela of small vessel ischemic changes. Limited imaging of the major intracranial flow voids appear grossly patent within the intracranial portions. There is absent, abnormal flow within portions of the right interosseous and proximal cavernous portions. This is better seen on outside CTA. The paranasal sinuses and mastoid air cells are grossly clear. Globes and orbits are grossly unremarkable Impression: 1.Findings compatible with evolving late acute to subacute infarct within the right frontal lobe. Additional punctate areas of signal abnormality noted within the right parietal occipitalregion. 2.Mild increased T1 signal and minimal susceptibility artifact compatible with hemorrhagic staining. No overt intraparenchymal hemorrhagic transformation. 3.Abnormal flow within the right internal carotid artery. This is better seen on outside CTA. 4.Additional white matter changes compatible small vessel ischemic disease. Findings called to the broadcast traffic coordinator at the time of interpretation. Electronically Signed: Florin Anaya MD 07/18/2025 10:00 AM EST Workstation ID: [id number] CT Outside Head Result Date: 07/17/2025 This procedure was auto-finalized with no dictation required. CT Outside Head Result Date: 07/17/2025 This procedure was auto-finalized with no dictation required. CT Outside Head Result Date: 07/17/2025 This procedure was auto-finalized with no dictation required. Results for orders placed during the hospital encounter of 07/18/25 Duplex Carotid Ultrasound CAR 07/19/2025 8:44 AM Interpretation Summary Right internal carotid artery is occluded. Abnormal waveforms detected in the right carotid/ICA suggestive of a more distal occlusion. Right vertebral artery is occluded. Left internal carotid artery demonstrates a less than 50% stenosis. Antegrade left vertebral flow. No previous study available for comparison. Results for orders placed during the hospital encounter of 07/18/25 Duplex Carotid Ultrasound CAR 07/19/2025 8:44 AM Interpretation Summary Right internal carotid artery is occluded. Abnormal waveforms detected in the right carotid/ICA suggestive of a more distal occlusion. Right vertebral artery is occluded. Left internal carotid artery demonstrates a less than 50% stenosis. Antegrade left vertebral flow. No previous study available for comparison. Results for orders placed during the hospital encounter of 07/18/25 Adult Transthoracic Echo Complete W/ Cont if Necessary Per Protocol (With Agitated Saline) 07/18/2025 12:55 PM Interpretation Summary Left ventricular ejection fraction appears to be 66 - 70%. Normal left atrial size and volume noted. Saline test results are negative. The aortic valve exhibits sclerosis. I have personally reviewed the therapy plans: [] PT/OT/ ST Therapy Plans Plan for Follow-up of Pending Labs/Results: no pending results Discharge Details Discharge Medications New Medications Instructions Start Date Alcohol Pads 70 % pads PRN for insulin administration amoxicillin-clavulanate 875-125 MG per tablet Commonly known as: AUGMENTIN 875 mg, Oral, 2 Times Daily aspirin 81 MG chewable tablet 81 mg, Oral, Daily Start Date: July 20, 2025 atorvastatin 80 MG tablet Commonly known as: LIPITOR 80 mg, Oral, Nightly clopidogrel 75 MG tablet Commonly known as: PLAVIX 75 mg, Oral, Daily Start Date: July 20, 2025 Dexcom G6 Sensor Not Applicable, Every 10 Days freestyle lancets Use 1 each As Needed (for glucose monitoring) as directed. FREESTYLE LITE test strip Generic drug: glucose blood Use 1 each as directed for blood glucose monitoring. FreeStyle Lite w/Device kit 1 Device, Not Applicable, 4 Times Daily PRN Insulin Syringes (Disposable) U-100 0.3 ML misc PRN for administering insulin NovoLIN 70/30 (70-30) 100 UNIT/ML injection Generic drug: insulin NPH-insulin regular 10 Units, Subcutaneous, 2 Times Daily With Meals No Known Allergies Discharge Disposition: Home or Self Carehome Diet: Hospital: Diet Order Procedures Diet: Cardiac; Healthy Heart (2-3 Na+); Texture: Soft to Chew (NDD 3); Soft to Chew: Chopped Meat; Fluid Consistency: Thin (IDDSI 0) Standing Status: Standing Number of Occurrences: 1 Diets:: Cardiac Cardiac Diet:: Healthy Heart (2-3 Na+) Texture:: Soft to Chew (NDD 3) Soft to Chew:: Chopped Meat Fluid Consistency:: Thin (IDDSI 0) Activity: as tolerated Restrictions or Other Recommendations: none CODE STATUS: Code Status and Medical Interventions: CPR (Attempt to Resuscitate); Full Support Ordered at: 07/18/25 0456 Code Status (Patient has no pulse and is not breathing): CPR (Attempt to Resuscitate) Medical Interventions (Patient has pulse or is breathing): Full Support Level Of Support Discussed With: Patient Future Appointments Date Time Provider Department Center 08/19/2025 2:30 PM [facility] 08/30/2025 1:30 PM Daya Aguilar APRN [facility] Additional Instructions for the Follow-ups that You Need to Schedule Ambulatory Referral to Neurology As directed 4-6 weeks Order Comments: 4-6 weeks Flaca Lam MD 07/19/25 Time Spent on Discharge: I spent 45 minutes on this discharge activity which included: [id number] with the patient, reviewing the data in the system, coordination of the care with the nursing staff as well as consultants, documentation, and entering orders. documented in this encounter Discharge Instructions * Discharge Instructions* Vesna Thompson APRN - 07/19/2025 1:34 PM EST -Continue the following medications: Plavix 75mg daily, Aspirin 81mg daily, and Atorvastatin 80mg nightly. On 10/17 stop Plavix and continue ASA 81mg daily. -Monitor blood pressure; goal 120-150/80-90 -Avoid low blood pressure and dehydration -Goal blood glucose <140 -Increase physical activity as tolerated; goal exercise 30 minutes/day 3-5 times weekly if able -Call 911 for stroke symptoms (unilateral weakness, unilateral numbness, vision loss/double vision,speech difficulty, trouble walking, sudden severe headache or headache with nausea/vomiting/confusion/or decreased level of consciousness) -Schedule follow-up with your primary care physician * Discharge Instr - Other Orders* Rosaura Wright RN - 07/19/2025 3:02 PM EST Mobile Speech Therapy [address] [place] [address] * Attachments The following attachments cannot be sent through Care Everywhere. * Cognitive Rehabilitation After a Stroke ([place]) * Physical Therapy After a Stroke ([place]) * Hospital Discharge After a Stroke ([place]) * Correction Insulin ([place]) * Hyperglycemia ([place]) documented in this encounter Medications at Time of Discharge Alcohol Swabs (Alcohol Pads) 70 % pads use as needed for insulin administration 100 each 07/19/2025 3:43 PM EST 07/19/2025 aspirin 81 MG chewable tablet Chew 1 tablet Daily. 90 tablet 9 07/19/2025 3:43 PM EST 07/20/2025 atorvastatin (LIPITOR) 80 MG tablet Take 1 tablet by mouth Every Night. 90 tablet 07/19/2025 3:43 PM EST 07/19/2025 Blood Glucose Monitoring Suppl (FreeStyle Lite) w/Device kit Use 1 Device 4 (Four) Times a Day As Needed (for glucose monitoring). 1 kit 07/19/2025 clopidogrel (PLAVIX) 75 MG tablet Take 1 tablet by mouth Daily for 90 days. 90 tablet 07/19/2025 3:43 PM EST 07/20/2025 Continuous Glucose Sensor (Dexcom G6 Sensor) Use Every 10 (Ten) Days. 3 each 07/19/2025 glucose blood (FREESTYLE LITE) test strip Use 1 each as directed for blood glucose monitoring. 100 each 07/19/2025 insulin NPH-insulin regular (NovoLIN 70/30) (70-30) 100 UNIT/ML injection Inject 10 Units under the skin into the appropriate area as directed 2 (Two) Times a Day With Meals. 10 mL 07/19/2025 3:43 PM EST 07/19/2025 Insulin Syringe-Needle U-100 31G X 5/16 0.3 ML misc use as directed with insulin administration 100 each 07/19/2025 3:43 PM EST 07/19/2025 Lancets (freestyle) lancets Use 1 each As Needed (for glucose monitoring) as directed. 100 each 07/19/2025 amoxicillin-cla vulanate (AUGMENTIN) 875-125 MG per tablet Take 1 tablet by mouth 2 (Two) Times a Day for 5 days. 10 tablet 07/19/2025 3:43 PM EST 07/19/2025 documented as of this encounter Progress Notes * Gloria Roth, MS,RD,LD - 07/19/2025 1:18 PM EST Patient Name: Eliel Spence Date of : 1955 Admission date: 07/18/2025 Reason for Encounter: MST 2-3 or Nursing Admission Screen [facility] Clinical Nutrition Assessment Subjective Subjective Information 07/19/25 Patient screened for MST2 and possible chewing/swallowing difficulties. Spoke with patient and spouse at bedside. Both reported a decrease in appetite and PO intake over the past month or so. Endorsed going from ~200# to 188# in 6 months. Has been eating around 1 large meal + snacks per day at baseline. Does not like any ONS and denied receiving them at this time. Noted new DM diagnosis A1C 10.90%. Provided DM diet education. Discussed and answered appropriate questions. hospital educator to see as well. Patient seemed to have a good baseline knowledge of what to do and seemed motivated to make changes. 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 NKFA Objective H&P and Current Problems H&P History reviewed. No pertinent past medical history. History reviewed. No pertinent surgical history. 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 MBS: soft to chew textures, chopped, thin liquids, other (see comments) (Pt preference) Anthropometrics Height: 160 cm (63 ) Weight: 84.4 kg (186 lb 1.1 oz) (07/19/25 0415) Weight Method: Bed scale BMI (Calculated): 33 Trending Weight Changes 07/19/25: No significant changes Weight History Wt Readings from Last 15 Encounters: 07/19/25 0415 84.4 kg (186 lb 1.1 oz) 07/18/25 1626 85.3 kg (188 lb 0.8 oz) 07/18/25 0848 85.3 kg (188 lb 0.8 oz) 07/18/25 0750 85.3 kg (188 lb) UBW: ~200# Labs Results from last 7 days Lab Units 07/18/25 0454 07/18/25 0251 SODIUM mmol/L -- 137 POTASSIUM mmol/L -- 3.9 GLUCOSE mg/dL -- 232* BUN mg/dL -- 15.4 CREATININE mg/dL -- 0.87 CALCIUM mg/dL -- 10.3 MAGNESIUM mg/dL -- 1.9 ALBUMIN g/dL -- 4.0 LACTATE mmol/L 1.5 -- BILIRUBIN mg/dL -- 0.8 ALK PHOS U/L -- 95 AST (SGOT) U/L -- 19 ALT (SGPT) U/L -- 14 TRIGLYCERIDES mg/dL -- 305* Results from last 7 days Lab Units 07/18/25 0250 PLATELETS 10*3/mm3 268 HEMOGLOBIN g/dL 16.9 HEMATOCRIT % 48.9 Lab Results Component Value Date HGBA1C 10.90 (H) 07/18/2025 Medications Scheduled Medications ampicillin-sulbactam, 3 g, Intravenous, Q6H aspirin, 81 mg, Oral, Daily Or aspirin, 300 mg, Rectal, Daily atorvastatin, 80 mg, Oral, Nightly clopidogrel, 75 mg, Oral, Daily famotidine, 40 mg, Oral, Daily insulin glargine, 5 Units, Subcutaneous, Daily insulin regular, 2-9 Units, Subcutaneous, TID AC sodium chloride, 10 mL, Intravenous, Q12H Infusions PRN Medications acetaminophen OR acetaminophen OR acetaminophen senna-docusate sodium AND polyethylene glycol AND bisacodyl AND bisacodyl Calcium Replacement - Follow Nurse / OPA Driven Protocol dextrose dextrose glucagon (human recombinant) Magnesium Standard Dose Replacement - Follow Nurse / OPA Driven Protocol ondansetron Phosphorus Replacement - Follow Nurse / OPA Driven Protocol Potassium Replacement - Follow Nurse / OPA Driven Protocol sodium chloride sodium chloride Physical Findings Chewing/Swallowing ELECTROMEDICAL EQUIPMENT REPAIRER following Dentition Mouth/Teeth WDL: WDL, .WDL except, teeth Teeth Symptoms: tooth/teeth missing, other (see comments) (inflammation in back of mouth r/t recenttooth extraction and abscess) +missing teeth Skin intact Bowel function Last Bowel Movement: 07/17/25 (07/19/25 0800) Edema None documented Intake & Output (last 3 days) 07/16 0701 07/17 0700 07/17 0701 07/18 0700 07/18 0701 07/19 0700 07/19 0701 07/20 0700 P.O. 240 240 IV Piggyback 100 Total Intake(mL/kg) 340 (4) 240 (2.8) Urine (mL/kg/hr) 300 (0.1) Total Output 300 Net +40 +240 Urine Unmeasured Occurrence 1 x Nutrition Focused Physical Exam 07/19/25: NFPE not completed r/t not indicated 1 Current Nutrition Orders & Evaluation of Intake Oral Nutrition Food Allergies/Intolerances NKFA Current PO Diet Diet: Cardiac; Healthy Heart (2-3 Na+); Texture: Soft to Chew (NDD 3); Soft to Chew: Chopped Meat; Fluid Consistency: Thin (IDDSI 0) Oral Nutrition Supplement None Trending % PO Intake 07/19/25: 88% avg x2 meals 2 Assessment & Plan Nutrition Diagnosis and Goals Nutrition Diagnosis 1 Food and Nutrition Related Knowledge Deficit r/t new DM diagnosis AEB A1C 10.90%, need for education Nutrition Diagnosis 2 None Goal(s) Maintain PO Intake and Increase knowledge on diet/nutrition effects on condition/status Nutrition Intervention and Prescription Intervention Oral nutrition supplement offered but declined by patient, Obtain food preferences, Provide Education, Continue to monitor for plan of care, and Continue with current interventions Diet Prescription Continue as ordered Supplement Prescription Declined Education Provided Provided DM ed 3 Monitoring/Evaluation Monitor/Evaluation Per Protocol, PO Intake, Weight, Symptoms, and POC/GOC RD Follow-Up Encounter 7-10 days Electronically signed by: Gloria Roth, MS,RD,LD 07/19/25 13:18 EST * Jay Vesna VIANEY Cotton - 07/19/2025 7:45 AM EST Images from the original note were not included. Stroke Progress Note Chief Complaint: Confusion Subjective Subjective Subjective: No acute events overnight. Patient continues to have mild confusion and denies experience any unilateral weakness or numbness. He is tolerating his Plavix and aspirin without any adverse side effects. He feels as if he is ready to go home. Objective Temp: [97.8 ??F (36.6 ??C)-98.5 ??F (36.9 ??C)] 97.8 ??F (36.6 ??C) Heart Rate: [87-109] 88 Resp: [16-17] 16 BP: (116-139)/(67-86) 123/78 Objective Neurological Exam Mental Status Alert. Oriented to person, place, time and situation. Speech is normal. Language is fluent with no aphasia. Cranial Nerves CN II: Visual hernandez full to confrontation. CN III, IV, : Extraocular movements intact bilaterally. Pupils equal round and reactive to light bilaterally. CN V: Facial sensation is normal. CN VII: Full and symmetric facial movement. CN VIII: Hearing is intact bilaterally. CN XII: Tongue midline without atrophy or fasciculations. Motor Normal muscle bulk throughout. Normal muscle tone. Strength is 5/5 throughout all four extremities. Sensory Sensation is intact to light touch, pinprick, vibration and proprioception in all four extremities. Coordination No obvious dysmetria noted. Gait Not observed. Physical Exam Vitals and nursing note reviewed. Constitutional: General: He is not in acute distress. Appearance: Normal appearance. He is not ill-appearing. HENT: Head: Normocephalic. Mouth/Throat: Mouth: Mucous membranes are moist. Eyes: Extraocular Movements: Extraocular movements intact. Pupils: Pupils are equal, round, and reactive to light. Cardiovascular: Rate and Rhythm: Normal rate and regular rhythm. Pulmonary: Effort: Pulmonary effort is normal. No respiratory distress. Comments: On room air Skin: General: Skin is warm and dry. Neurological: General: No focal deficit present. Mental Status: He is alert and oriented to person, place, and time. Motor: Motor strength is normal. Psychiatric: Mood and Affect: Mood normal. Speech: Speech normal. Behavior: Behavior normal. Results Review: I reviewed the patient's new clinical results. WBC Date Value Ref Range Status 07/18/2025 10.50 3.40 - 10.80 10*3/mm3 Final Hemoglobin Date Value Ref Range Status 07/18/2025 16.9 13.0 - 17.7 g/dL Final Hematocrit Date Value Ref Range Status 07/18/2025 48.9 37.5 - 51.0 % Final Platelets Date Value Ref Range Status 07/18/2025 268 140 - 450 10*3/mm3 Final Lab Results Component Value Date GLUCOSE 232 (H) 07/18/2025 BUN 15.4 07/18/2025 CREATININE 0.87 07/18/2025 NA 137 07/18/2025 K 3.9 07/18/2025 CL 101 07/18/2025 CALCIUM 10.3 07/18/2025 PROTEINTOT 7.2 07/18/2025 ALBUMIN 4.0 07/18/2025 ALT 14 07/18/2025 AST 19 07/18/2025 ALKPHOS 95 07/18/2025 BILITOT 0.8 07/18/2025 GLOB 3.2 07/18/2025 AGRATIO 1.3 07/18/2025 BCR 17.7 07/18/2025 ANIONGAP 10.5 07/18/2025 EGFR 94.0 07/18/2025 Lab 07/18/25 0250 HEMOGLOBIN A1C 10.90* Lipid Panel 07/18/2025 02:51 Lipid Panel Total Cholesterol 233 Triglycerides 305 HDL Cholesterol 31 VLDL Cholesterol 56 LDL Cholesterol 146 LDL/HDL Ratio 4.55 MRI Brain Without Contrast Result Date: 07/18/2025 Impression: 1.Findings compatible with evolving late acute to subacute infarct within the right frontal lobe. Additional punctate areas of signal abnormality noted within the right parietal occipitalregion. 2.Mild increased T1 signal and minimal susceptibility artifact compatible with hemorrhagic staining. No overt intraparenchymal hemorrhagic transformation. 3.Abnormal flow within the right internal carotid artery. This is better seen on outside CTA. 4.Additional white matter changes compatible small vessel ischemic disease. Findings called to the broadcast traffic coordinator at the time of interpretation. Electronically Signed: Florin Anaya MD 07/18/2025 10:00 AM EST Workstation ID: [id number] Results for orders placed during the hospital encounter of 07/18/25 Adult Transthoracic Echo Complete W/ Cont if Necessary Per Protocol (With Agitated Saline) 07/18/2025 12:55 PM Interpretation Summary Left ventricular ejection fraction appears to be 66 - 70%. Normal left atrial size and volume noted. Saline test results are negative. The aortic valve exhibits sclerosis. Results for orders placed during the hospital encounter of 07/18/25 Duplex Carotid Ultrasound CAR 07/19/2025 8:44 AM Interpretation Summary Right internal carotid artery is occluded. Abnormal waveforms detected in the right carotid/ICA suggestive of a more distal occlusion. Right vertebral artery is occluded. Left internal carotid artery demonstrates a less than 50% stenosis. Antegrade left vertebral flow. No previous study available for comparison. Assessment/Plan This is a 70 year old male with no known medical history, has not seen a doctor in 5 years, who presented as a transfer from [facility] where he was evaluated for a 10 day history of AMS. Family had reportedly been encouraging the patient to seek medical care but he had declines. His niece, who is a nurse, saw him on 07/18 and noticed abnormal behaviors (sitting backward on the couch, starring ect.) and succeeded in getting him to go to the ED. [facility] at OSH 0. BP 133/75. CT head showed a hypodensity within the right frontal lobe concerning for subacute/chronic infarct. CTA at OSH revealed occlusion of the right cavernous ICA and occlusion of the right vertebral artery of unknown chronicity. Of note, glucose was reported at 331. Patient was transferred to [facility] for stroke workup. Patient was loaded with aspirin and Plavix prior to transfer. Patient was not deemed a candidate for any acute stroke interventions given extended LKW. He was admitted to the hospitalist service for further evaluation. Antiplatelet STAFF COUNSEL: ASA 81mg Anticoagulant STAFF COUNSEL: none #Acute right frontal and parietal stroke, etiology is likely hypoperfusion in the setting of severestenosis of the intracranial portion of the right ICA in the setting of uncontrolled vascular risk factors including hyperlipidemia and diabetes #Right ICA severe stenosis vs. 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 Continue atorvastatin 80 mg nightly for secondary stroke prevention. -A1c 10.90, goal <7; management per primary team, hospital educator to meet with patient prior to discharge -Case was discussed with Dr. Luu with neurointervention regarding the severe stenosis/occlusion of the right ICA; given that the patient is na??ve to medical therapy in addition to the anatomical location we would treat with maximal medical therapy for now and follow-up as an outpatient in this regard. -SBP goal 120-160 given symptomatic right ICA severe stenosis -Activity as tolerated, fall risk precautions -PT/OT continue to follow, they recommend home with assistance and OP PT/OT -ELECTROMEDICAL EQUIPMENT REPAIRER continues to follow, for dysphagia. Patient to have swallow study completed today -Stroke clinic follow-up in 4-6 weeks (added to ADT) Plan of care was discussed with the patient and at bedside. From neurological standpoint patient can be discharged home today when cleared by primary team. Please call for any further questions or concerns. Discussed the importance of medication compliance Plavix 75mg daily, Aspirin 81mg daily, and Atorvastatin 80mg nightly and lifestyle modifications adequate control of blood pressure, adequate controlof cholesterol (goal LDL <70), and adequate control of glucose (<140, A1c goal <7) to helpreduce the risk of future cerebrovascular events. Also discussed the signs symptoms that would warrant the patient return back to the emergency department including unilateral weakness, unilateral numbness, visual disturbances, loss of balance, speech difficulties, and/or a sudden severe headache. Patient verbalizes his understanding, reinforcement needed. Vesna Thompson MSN, EDUCATIONAL PROGRAM ASSISTANT, [facility]-, AN- Stroke Neurology * Sulaiman-Ta Lucero MD - 07/18/2025 10:23 AM EST Stroke Progress Note Chief Complaint: Confusion Subjective Subjective Subjective: The patient is lying down in the bed in NAD. The patient was at the bedside. The patient stated that he is feeling okay this morning he denies having difficulty with his speech or strength. Unclear if he is having visual deficit. I have a detailed discussion with the patient and his regarding imaging finding what could possibly explain his stroke. The patient and his requested discussing his case with family member who is a nurse who was present later during this encounter. Family mentioned that yesterday she had an episode where he felt confused and was having some weakness on the left upper extremity. However the patient has been having episodes where he was not acting himself and having some behavioral changes over the last few days (wearing his shirt backwards, opening pressure which taking things out but not putting them back in etc) We discussed management plan moving forward. All questions and concerns were answered. No other acute complains at this time Review of Systems Constitutional: No fatigue Objective Temp: [98.1 ??F (36.7 ??C)-98.3 ??F (36.8 ??C)] 98.3 ??F (36.8 ??C) Heart Rate: [107-122] 107 Resp: [17] 17 BP: (129-143)/(70-95) 136/82 Objective GEN: lying in bed; in NAD HENT: normocephalic, non-erythematous oropharynx CV: no LE edema NEURO: Mental Status: A&O x 3, interactive, able to follow commands Speech: Intact Articulation CN 2-12: II - PERRLA, difficult to assess visual field as patient keeps moving his eyes but some concern forleft upper quadrantanopsia III, IV, - EOMI V - Facial sensation intact VII -no gross facial asymmetry VIII - Auditory acuity intact XII - Tongue protrudes midline Motor: The patient can move all 4 extremities against gravity with no drift appreciated Sensory: intact light touch throughout Gait/Station: deferred No extinction to tactile stimulus Results Review: I reviewed the patient's new clinical results. WBC Date Value Ref Range Status 07/18/2025 10.50 3.40 - 10.80 10*3/mm3 Final RBC Date Value Ref Range Status 07/18/2025 5.47 4.14 - 5.80 10*6/mm3 Final Hemoglobin Date Value Ref Range Status 07/18/2025 16.9 13.0 - 17.7 g/dL Final Hematocrit Date Value Ref Range Status 07/18/2025 48.9 37.5 - 51.0 % Final MCV Date Value Ref Range Status 07/18/2025 89.4 79.0 - 97.0 fL Final MCH Date Value Ref Range Status 07/18/2025 30.9 26.6 - 33.0 pg Final MCHC Date Value Ref Range Status 07/18/2025 34.6 31.5 - 35.7 g/dL Final RDW Date Value Ref Range Status 07/18/2025 11.9 (L) 12.3 - 15.4 % Final RDW-SD Date Value Ref Range Status 07/18/2025 38.9 37.0 - 54.0 fl Final MPV Date Value Ref Range Status 07/18/2025 9.3 6.0 - 12.0 fL Final Platelets Date Value Ref Range Status 07/18/2025 268 140 - 450 10*3/mm3 Final Neutrophil % Date Value Ref Range Status 07/18/2025 64.8 42.7 - 76.0 % Final Lymphocyte % Date Value Ref Range Status 07/18/2025 26.8 19.6 - 45.3 % Final Monocyte % Date Value Ref Range Status 07/18/2025 6.2 5.0 - 12.0 % Final Eosinophil % Date Value Ref Range Status 07/18/2025 1.3 0.3 - 6.2 % Final Basophil % Date Value Ref Range Status 07/18/2025 0.4 0.0 - 1.5 % Final Immature Grans % Date Value Ref Range Status 07/18/2025 0.5 0.0 - 0.5 % Final Neutrophils, Absolute Date Value Ref Range Status 07/18/2025 6.81 1.70 - 7.00 10*3/mm3 Final Lymphocytes, Absolute Date Value Ref Range Status 07/18/2025 2.81 0.70 - 3.10 10*3/mm3 Final Monocytes, Absolute Date Value Ref Range Status 07/18/2025 0.65 0.10 - 0.90 10*3/mm3 Final Eosinophils, Absolute Date Value Ref Range Status 07/18/2025 0.14 0.00 - 0.40 10*3/mm3 Final Basophils, Absolute Date Value Ref Range Status 07/18/2025 0.04 0.00 - 0.20 10*3/mm3 Final Immature Grans, Absolute Date Value Ref Range Status 07/18/2025 0.05 0.00 - 0.05 10*3/mm3 Final nRBC Date Value Ref Range Status 07/18/2025 0.0 0.0 - 0.2 /100 WBC Final Lab Results Component Value Date GLUCOSE 232 (H) 07/18/2025 BUN 15.4 07/18/2025 CREATININE 0.87 07/18/2025 NA 137 07/18/2025 K 3.9 07/18/2025 CL 101 07/18/2025 CALCIUM 10.3 07/18/2025 PROTEINTOT 7.2 07/18/2025 ALBUMIN 4.0 07/18/2025 ALT 14 07/18/2025 AST 19 07/18/2025 ALKPHOS 95 07/18/2025 BILITOT 0.8 07/18/2025 GLOB 3.2 07/18/2025 AGRATIO 1.3 07/18/2025 BCR 17.7 07/18/2025 ANIONGAP 10.5 07/18/2025 EGFR 94.0 07/18/2025 MRI Brain Without Contrast Result Date: 07/18/2025 Impression: 1.Findings compatible with evolving late acute to subacute infarct within the right frontal lobe. Additional punctate areas of signal abnormality noted within the right parietal occipitalregion. 2.Mild increased T1 signal and minimal susceptibility artifact compatible with hemorrhagic staining. No overt intraparenchymal hemorrhagic transformation. 3.Abnormal flow within the right internal carotid artery. This is better seen on outside CTA. 4.Additional white matter changes compatible small vessel ischemic disease. Findings called to the broadcast traffic coordinator at the time of interpretation. Electronically Signed: Florin Anaya MD 07/18/2025 10:00 AM EST Workstation ID: [id number] -[facility] wo on 07/17/2025 images were personally reviewed and showed an area of hypodensity affecting the anterior right frontal lobe -CTA of the head and neck images from 07/17/2025 were personally reviewed and showed no large vessel occlusion. There was severe stenosis of the distal intracranial portion of the right internal carotid artery with distal reperfusion and patent right MCA. There is likely chronic right vertebral artery occlusion -MRI brain images from 07/18/2025 were personally reviewed and showed an acute ischemic stroke affecting the right frontal and parietotemporal lobes in a watershed distribution -Transthoracic echocardiogram from 07/18/2025 report was personally reviewed and showed left ventricular ejection fraction of 66 to 70%, no left atrial dilation and negative bubble study -A1c from 07/18/2025 was 10.9% -LDL from 07/18/2025 was 146 Assessment/Plan This is a 70 year old male with no known medical history, has not seen a doctor in 5 years, who presents as a transfer from [facility] where he was evaluated for a 10 day history of AMS. Family had reportedly been encouraging the patient to seek medical care but he had declines. His niece, who is a nurse, saw him today and noticed abnormal behaviors (sitting backward on the couch, starringect.) and succeeded in getting him to go to the ED. [facility] at OSH 0. BP 133/75. CT head showed a hypodensity within the right frontal lobe concerning for subacute/chronic infarct. CTA at OSH revealed occlusion of the right cavernous ICA and occlusion of the right vertebral artery of unknown chronicity. Of note, glucose was reported at 331. Patient was transferred to [facility] for stroke workup. Patient was loaded with aspirin and Plavix prior to transfer. Patient was not deemed a candidate for any acute stroke interventions given extended LKW. He will be admitted to the hospitalist service for further evaluation. Antiplatelet STAFF COUNSEL: ASA 81mg Anticoagulant STAFF COUNSEL: none #Acute right frontal stroke #Right ICA severe stenosis #Right vertebral artery occlusion #Lactic acidosis #Right oral mass; present on CT #Diabetes mellitus type 2, new diagnosis -Etiology is likely hypoperfusion in the setting of severe stenosis of the intracranial portion of the right ICA in the setting of uncontrolled vascular risk factors including hyperlipidemia and diabetes -CTH wo on 07/17/2025 images were personally reviewed and showed an area of hypodensity affecting the anterior right frontal lobe -CTA of the head and neck images from 07/17/2025 were personally reviewed and showed no large vessel occlusion. There was severe stenosis of the distal intracranial portion of the right internal carotid artery with distal reperfusion and patent right MCA. There is likely chronic right vertebral artery occlusion -MRI brain images from 07/18/2025 were personally reviewed and showed an acute ischemic stroke affecting the right frontal and parietotemporal lobes in a watershed distribution -Transthoracic echocardiogram from 07/18/2025 report was personally reviewed and showed left ventricular ejection fraction of 66 to 70%, no left atrial dilation and negative bubble study -A1c from 07/18/2025 was 10.9% -LDL from 07/18/2025 was 146 Recommendations -s/p loading dose of aspirin and Plavix -Continue DAPT with aspirin 81 mg and Plavix 75 mg daily for 90 days with a plan to switch eventually to aspirin 81 mg daily monotherapy afterward for secondary stroke prevention -Will check P2Y12 level to confirm Plavix responsiveness -Continue atorvastatin 80 mg nightly for secondary stroke prevention. Target LDL level of less than70 -Case was discussed with Dr. Luu with neurointervention regarding the severe stenosis/occlusion of the right ICA given that the patient is na??ve to medical therapy in addition to the anatomical location we would treat with maximal medical therapy for now and follow-up as an outpatient in this regard. -SBP goal 120-160 given symptomatic right ICA severe stenosis -A1c 10.90, goal <7; management per primary team, hospital educator to meet with patient prior to discharge -CT soft tissue head/neck to evaluate mass seen on CT head; hospitalist to order -Activity as tolerated, fall risk precautions -PT/OT/ELECTROMEDICAL EQUIPMENT REPAIRER evaluation Stroke will continue to follow. Please call for any further questions or concerns Ta Stern MD, Msc, PhD Vascular Neurologist [facility] * Paul Cronin MD - 07/18/2025 7:17 AM EST Images from the original note were not included. [facility] Medicine Services ADMISSION FOLLOW-UP NOTE Patient admitted after midnight, H&P by my partner performed earlier on today's date reviewed. Interim findings, labs, and charting also reviewed. The [facility] Hospital Problem List has been managed and updated to include any new diagnoses: Active Hospital Problems Diagnosis POA Ischemic stroke of frontal lobe [I63.9] Yes Dysphagia [R13.10] Yes Dental abscess [K04.7] Yes Type 2 diabetes mellitus with hyperglycemia [E11.65] Yes Mixed hyperlipidemia [E78.2] Yes Sinus tachycardia [R00.0] Yes Elevated blood pressure reading [R03.0] Yes Resolved Hospital Problems Diagnosis Date Resolved POA Hyperglycemia [R73.9] 07/18/2025 Yes 70-year-old male with no significant past medical history was transferred from [facility] for higher-level care after family noted progressive altered mental status, with outside imaging showing an acute to subacute right frontal lobe infarct. He presented with confusion, dysphagia,hyperglycemia, and a recent dental abscess, with family reporting intermittent disorientation and unusual behaviors that began prior to a recent dental procedure with anesthesia and worsened afterward # Subacute right frontal stroke # Right ICA occlusion # Right vertebral artery occlusion # Dysphagia -Stroke neurology following concern for cryptogenic etiology, atheroembolic likely on differential diagnosis especially after recent tooth extraction and oral procedure - CT scan of the neck showed some arterial narrowing as documented above - MRI brain has been ordered, currently pending, continue workup, follow-up echo, carotid ultrasound - Treat elevated blood pressure if indicated as history of symptoms seems past more than 72 hours - PT/OT to evaluate - May need neurosurgery evaluation after carotid ultrasound has been obtained Hyperglycemia Newly diagnosed T2DM --> A1c 10.90 - Reports frequent urination and suspects high blood sugar levels -SSI and Accu-Chek per protocol - Consider start insulin/p.o. medication upon discharge from the hospital - He will need follow-up with PCP for further management as an outpatient - Diabetic education consulted Mixed hyperlipidemia (hypercholesterolemia /hypertriglyceridemia) Newly diagnosed not on medication Lipid panel ordered at admission with cholesterol 233, HDL 31, LDL not at the target 146, VLDL 56 and triglyceride 305 - Continue high-dose atorvastatin 80 mg once daily - Repeat lipid panel in 3 months after follow-up with PCP - Nutrition, diabetic education consulted Elevated blood pressure reading/concern for new HTN; Sinus tachycardia: -Continue to closely monitor, follow-up echo -If BP remains elevated will likely need antihypertensives at discharge Dental abscess - Abscess in the mouth, completed a course of antibiotics with amoxicillin, however patient noted significant swelling and tenderness with lymph node enlargement on the left side of the lower jaw, however WBC normal, but patient reported subjective fever - Patient was initiated on IV Unasyn, unfortunately cultures not sent, likely switch to Augmentin if he passes his swallow test Expected Discharge Expected discharge date/ time has not been documented. Paul Cronin MD 07/18/25 * Paulie Engle [facility] - 07/18/2025 5:17 AM EST Consult to dose Ampicillin-Sulbactam Dental abscess NKA Results from last 7 days Lab Units 07/18/25 0251 CREATININE mg/dL 0.87 Plan: Unasyn 3 Gm IV Q6H Paulie Engle [facility] 07/18/25 05:15 documented in this encounter H&P Notes * Chanelle Goyal MD - 07/18/2025 2:24 AM EST Images from the original note were not included. [facility] Medicine Services HISTORY AND PHYSICAL Patient Name: Eliel Spence : 1955 Primary Care Physician: Provider, No Known Date of admission: 07/18/2025 Subjective Subjective Chief Complaint: Altered mental status HPI: Eliel Spence is a 70 y.o. male with no significant past medical history who was transferred from [facility] for higher-level care after family reported altered mental status. Imaging at the outside hospital revealed an acute to subacute right frontal lobe infarct. He presented with confusion, dysphagia, hyperglycemia, and a dental abscess. Family reported intermittent disorientation and memory lapses that began prior to a recent dental procedure with anesthesia and worsened afterward. He exhibited unusual behaviors, including mismatched footwear and improperclothing placement. His confusion progressed, with a notable episode on the day of presentation prompting ER evaluation. The patient denied focal weakness, visual changes, chest pain, shortness of breath, or gait instability. He has chronic right-sided hearing loss and reports morning dizziness upon standing without falls. He has experienced dysphagia for approximately one year, frequent urination, and jaw pain following a dental procedure, for which he completed antibiotics. He does not have a primary care provider, takes no routine medications aside from a multivitamin, and reports no tobacco, alcohol, or drug use. In the emergency department, he was hemodynamically stable with an NIHSS of 0. CT head showed a subacute right frontal lobe infarct. 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 Labs were notable for hyperglycemia with a glucose of 331 mg/dL. The stroke team recommended transfer for further evaluation, including MRI. The patient was loaded with aspirin and Plavix prior to transfer, and hospitalist services were consulted for admission and ongoing management. Personal History History reviewed. No pertinent past medical history. History reviewed. No pertinent surgical history. Family History: Non family history is not on file. Social History: reports that he quit smoking about 29 years ago. His smoking use included cigarettes. He has never used smokeless tobacco. He reports that he does not drink alcohol and does not use drugs. Social History Social History Narrative Not on file Medications: Not on File Objective Objective Vital Signs: Physical Exam Constitutional: General: He is not in acute distress. Appearance: Normal appearance. He is normal weight. He is not ill-appearing, toxic-appearing or diaphoretic. HENT: Head: Normocephalic and atraumatic. Nose: Nose normal. Mouth/Throat: Mouth: Mucous membranes are dry. Comments: Has recent left lower molar tooth extraction with signs of infection abscess and lymph node enlargement of submandibular area with tenderness on examination Eyes: General: Right eye: No discharge. Left eye: No discharge. Extraocular Movements: Extraocular movements intact. Conjunctiva/sclera: Conjunctivae normal. Pupils: Pupils are equal, round, and reactive to light. Cardiovascular: Rate and Rhythm: Regular rhythm. Tachycardia present. Pulses: Normal pulses. Heart sounds: Normal heart sounds. No murmur heard. No friction rub. No gallop. Pulmonary: Effort: Pulmonary effort is normal. No respiratory distress. Breath sounds: Normal breath sounds. No wheezing or rales. Abdominal: General: Abdomen is flat. Bowel sounds are normal. There is no distension. Palpations: Abdomen is soft. There is no mass. Tenderness: There is no abdominal tenderness. There is no guarding or rebound. Hernia: A hernia is present. Comments: Noted left lower abdomen scar with previous surgery no signs of infection healed nicely, suspected ventral hernia on the suprapubic area right above the umbilical area, no signs of incarceration Musculoskeletal: General: No swelling or tenderness. Normal range of motion. Cervical back: Normal range of motion and neck supple. No rigidity or tenderness. Right lower leg: No edema. Left lower leg: No edema. Skin: General: Skin is warm and dry. Capillary Refill: Capillary refill takes less than 2 seconds. Findings: No lesion or rash. Neurological: General: No focal deficit present. Mental Status: He is alert and oriented to person, place, and time. Mental status is at baseline. Cranial Nerves: No cranial nerve deficit. Sensory: No sensory deficit. Motor: No weakness. Coordination: Coordination normal. Gait: Gait normal. Deep Tendon Reflexes: Reflexes normal. Psychiatric: Mood and Affect: Mood normal. Behavior: Behavior normal. Judgment: Judgment normal. Result Review: I have personally reviewed the results from the time of this admission to 07/18/2025 04:32 EST and agree with these findings: [x] Laboratory list / accordion [] Microbiology [x] Radiology [x] EKG/Telemetry [] Cardiology/Vascular [] Pathology [x] Old records [] Other: Most notable findings include: Reviewed ER notes transferred from OSH Results LAB RESULTS: Lab 07/18/25 025 WBC 10.50 HEMOGLOBIN 16.9 HEMATOCRIT 48.9 PLATELETS 268 NEUTROS ABS 6.81 IMMATURE GRANS (ABS) 0.05 LYMPHS ABS 2.81 MONOS ABS 0.65 EOS ABS 0.14 MCV 89.4 Lab 07/18/25 0251 07/18/25 025 SODIUM 137 -- POTASSIUM 3.9 -- CHLORIDE 101 -- CO2 25.5 -- ANION GAP 10.5 -- BUN 15.4 -- CREATININE 0.87 -- EGFR 94.0 -- GLUCOSE 232* -- CALCIUM 10.3 -- MAGNESIUM 1.9 -- HEMOGLOBIN A1C -- 10.90* Lab 07/18/25 0251 TOTAL PROTEIN 7.2 ALBUMIN 4.0 GLOBULIN 3.2 ALT (SGPT) 14 AST (SGOT) 19 BILIRUBIN 0.8 ALK PHOS 95 Lab 07/18/25 0251 CHOLESTEROL 233* LDL CHOL 146* HDL CHOL 31* TRIGLYCERIDES 305* Brief Urine Lab Results None Microbiology Results (last 10 days) No results found for the last [address] Outside Head Result Date: 07/17/2025 This procedure was auto-finalized with no dictation required. CT Outside Head Result Date: 07/17/2025 This procedure was auto-finalized with no dictation required. CT Outside Head Result Date: 07/17/2025 This procedure was auto-finalized with no dictation required. Assessment & Plan Assessment & Plan Ischemic stroke of frontal lobe Dysphagia Dental abscess Type 2 diabetes mellitus with hyperglycemia Mixed hyperlipidemia Sinus tachycardia Elevated blood pressure reading 70-year-old male with no significant past medical history was transferred from [facility] for higher-level care after family noted progressive altered mental status, with outside imaging showing an acute to subacute right frontal lobe infarct. He presented with confusion, dysphagia,hyperglycemia, and a recent dental abscess, with family reporting intermittent disorientation and unusual behaviors that began prior to a recent dental procedure with anesthesia and worsened afterward. In the emergency department, he was hemodynamically stable with an NIHSS of 0; CT head confirmed a subacute right frontal infarct, and CTA revealed occlusion of the right cavernous internal carotidartery and right vertebral artery of unclear chronicity, with labs notable for glucose of 331 mg/dL. The stroke team recommended transfer for further evaluation including MRI, and the patient was loaded with aspirin and Plavix prior to admission for ongoing management. Assessment & Plan Code Status: Full code 1. 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 Concern for cryptogenic etiology, atheroembolic likely on differential diagnosis especially after recent tooth extraction and oral procedure - CT scan of the neck showed some arterial narrowing as documented above -Stroke team already on board - MRI ordered pending result - N.p.o. for now, speech evaluation in a.m. - Echocardiogram with bubble study pending result - Carotid ultrasound in a.m. - Neurocheck and neurovascular check, NIH score per protocol - Treat elevated blood pressure if indicated as history of symptoms seems past more than 72 hours - PT OT, speech eval - CT scan from OSH reviewed and addressed - Consider neurosurgery evaluation for vertebral and ICA artery occlusion after carotid ultrasound to consider further evaluation 2. # Hyperglycemia # Newly diagnosed T2DM --> A1c 10.90 today - Reports frequent urination and suspects high blood sugar levels -SSI and Accu-Chek per protocol - Consider start insulin/p.o. medication upon discharge from the hospital - He will need follow-up with PCP for further management as an outpatient - Diabetic education consulted 3. Mixed hyperlipidemia (hypercholesterolemia /hypertriglyceridemia) Newly diagnosed today, not on medication Lipid panel ordered at admission with cholesterol 233, HDL 31, LDL not at the target 146, VLDL 56 and triglyceride 305 -Start high-dose atorvastatin 80 mg once daily - Repeat lipid panel in 3 months after follow-up with PCP - Nutrition, diabetic education consulted 4. # Elevated blood pressure reading/concern for new HTN; # Sinus tachycardia: - Vital signs every 4 hours - Goal to keep SBP less than 160 while inpatient - Consider start antihypertensive medication at discharge - EKG ordered, reviewed with sinus tachycardia, rule out STEMI, normal QTc, and nonspecific T wave abnormality. - Start IV fluid while n.p.o. to monitor for his tachycardia -Consider beta-chelsey as needed if needed - Echocardiogram ordered pending result to evaluate valvular anatomy and EF 4. Dental abscess - Abscess in the mouth, completed a course of antibiotics with amoxicillin, however patient noted significant swelling and tenderness with lymph node enlargement on the left side of the lower jaw, however WBC normal, but patient reported subjective fever and noted swelling lymphadenopathy on the left SCM muscle -Will start Unasyn IV for now and consider switch to Augmentin passed swallow study Total time spent: 75 minutes Time spent includes time reviewing chart, [id number] time, counseling patient/family/caregiver, ordering medications/tests/procedures, communicating with other health day care center director, documenting clinical information in the electronic health record, and coordination of care. DVT prophylaxis: SCDs CODE STATUS: Full code Expected Discharge 2 days (click hyperlink to enter date then refresh the note) Expected discharge date/ time has not been documented. This note has been completed as part of a split-shared workflow. Signature: Electronically signed by Chanelle Goyal MD, 07/18/25, 4:57 AM EST Patient or patient equal opportunity representative verbalized consent for the use of Ambient Listening during the visit for chart documentation. 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 Chart reviewed. Pt was seen at bedside today with spouse at bedside. Permission given for visit. Discussed and taught patient and about new diagnosis of type 2 diabetes self-management, risk factors, and importance of blood glucose control to reduce complications. Diagnostic criteria for type 2 diabetes reviewed. Discussed ways to manage blood sugar and diabetes including healthy lifestyle changes. Target blood glucose readings and A1c goals per ADA were reviewed. Reviewed with patient current A1c 10.9% and discussed its significance. Explained the goal of A1c <7% to reduce the risk of long-term complications. Provided verbal and written instructions on ADA survival skill concepts : Meal planning: Discussed pts current eating pattern and potential strategies to help improve it. Suggested ???the plate method?? as a potential healthy eating plan and reviewed this with pt. Patientcurrently has 3 Christy 8 beverages daily along with sweets like little debbies, snowballs, chocolate donuts, and a couple of mini snickers . Discussed carb counting briefly along with the plate method.Stressed importance of eliminating pop from diet or cutting back more than half the amount he currently has. Safe medication administration: Discussed and taught patient about different types of insulin including the onset, peak, and duration of the insulin. Taught patient the correct sites for insulin injections and the importance of rotating insulin injection site. Taught patient the correct storage for opened insulin at room temperature, storage for unopened insulin in the refrigerator, and expiration dates for insulin. Also, we discussed and taught patient the correct disposal of needles used for insulin administration. Demonstrated and taught patient how to use a demo pen with appropriate injection technique on a demo pad. Patient was able to return the demonstration without difficulty. Reinforced that unopened pens need tarsha refrigerated. Patient's had questions about affordable insulin/cheaper insulin due to not having prescription coverage at this time. Mixed insulins would be more affordable- unclear patient's discharge medication regimen at this time, but patient was taught and is able to administer insulin if he is to be discharged on it. Monitoring (timing and technique): Encouraged pt to monitor blood sugar at home 2-4 times per day and to call PCP if blood sugar is trending high. Discussed benefits of SMBG/CGMS to help guide pt andprovider decision making. Encouraged to keep record of blood glucose readings to take to follow up appointment with PCP. Patient declined the need for meter teach and states he knows how to use a meter and does not need to be taught. Discussed Reli On as an affordable meter. Patient reports he would have to pay for his medications out of pocket since they are currently working on getting insurance. Prevention and treatment of hypoglycemia and hyperglycemia: Signs, symptoms, and treatment of hypoglycemia and hyperglycemia discussed with pt. Reviewed prevention strategies such as consistent eating pattern and taking medications as directed. Pt is able to teach back appropriate treatment of hypoglycemia using the rule of 15s after receiving instruction. Sick day management: Reviewed general sick day guidelines with pt, including drinking plenty of water, keeping simple carbs handy such as jell-o or popsicles, checking blood glucose more often (every2-4 hours or as directed by provider), and if/when ketone testing is appropriate. Encouraged pt to make a sick-day kit at home. Physical activity: Reviewed benefits of physical activity for diabetes management and overall health. Encouraged pt to begin in 10 min increments to build up to recommended 150 minute per week after speaking with doctor about which activities may be right for them. Discussed increased risk of a stroke with diabetes, htn, hld, older age, being overweight and smoking as well as history of previous stroke. Discussed choosing high fiber foods including whole grains, fresh fruits, and vegetables. Also encouraged choosing lean proteins like chicken, fish, beans, and nuts and avoiding foods high in salt, cholesterol, and processed foods. Provided patient with [employer] Stroke Prevention handout. Follow-up care: Follow-up care: Reviewed importance of ongoing follow-up with provider. Reviewed importance of annual physical exams, annual eye exams, regular dental exams, daily foot examination, and encouraged patient to discuss immunization needs with provider. Pt encouraged to attend scheduledappointments. Provided information about outpatient diabetes education classes at [facility]. Patient has been scheduled for outpatient diabetes education follow up visit on August 19 at 2:30pm via phone. Outpatient staff will provide reminder call prior to appointment. Patient was given reminder card with date and time of appointment and our contact information. [facility] with [facility] diabetes booklet, CGM's - no rx and RX handout, ReliOn info handout, types of insulin and BD's 4mm pen needle . Thank you for this consult. Total time spent reviewing chart, preparing education/materials, providing education at bedside, and coordinating care approx 90 minutes. Electronically signed by: Annika Ventura RN 07/19/25 14:23 EST * Vesna Thompson APRN - 07/18/2025 3:00 AM EST Images from the original note were not included. Stroke Consult Note Patient Name: Eliel Spence Age: 70 y.o. Sex: male : 1955 Primary Care Physician: Provider, No Known Referring Physician: Chuck Mckeon APRN, [facility] ED Handedness: Right Race: Chief Complaint/Reason for Consultation: CT findings, AMS x 10 days HPI: Eliel Spence is a 70 year old male with no known medical history, has not seen a doctor in 5 years, who presents as a transfer from [facility] where he was evaluated for a 10 day history of AMS. Family had reportedly been encouraging the patient to seek medical care but he had declines.His niece, who is a nurse, saw him today and noticed abnormal behaviors (sitting backward on the couch, starring ect.) and succeeded in getting him to go to the ED. [facility] at OSH 0. BP 133/75. CT head showed a hypodensity within the right frontal lobe concerning for subacute/chronic infarct. CTA at OSH revealed occlusion of the right cavernous ICA and occlusion of the right vertebral artery of unknown chronicity. Of note, glucose was reported at 331. Patient was transferred to [facility] for stroke workup. Patient was loaded with aspirin and Plavix prior to transfer. On arrival to our facility patient's neurological status remains intact, NIHSS is 0. His confirms the story above stating that he has been acting out of character for the past 10+ days. Of note he did recently have a tooth pulled on the left and received oral antibiotics for this. She notes that prior to having this pulled that his confusion started and it seemed to worsen after anesthesia therefore she felt maybe that was the cause. The patient tells me that he takes ASA 81mg daily however no other daily medications including anticoagulation. He denies history of stroke, tobacco abuse, ETOH use, or illicit drug use. Last Known Normal Date/Time: 10 days ago Review of Systems Constitutional: Negative for activity change, chills and fever. HENT: Positive for dental problem and trouble swallowing. Eyes: Negative. Negative for photophobia and visual disturbance. Respiratory: Negative. Negative for shortness of breath. Cardiovascular: Negative. Negative for chest pain and palpitations. Gastrointestinal: Negative. Negative for blood in stool, diarrhea, nausea and vomiting. Genitourinary: Negative. Negative for hematuria. Musculoskeletal: Negative. Negative for gait problem. Skin: Negative. Neurological: Positive for dizziness and light-headedness (upon standing). Negative for syncope, speech difficulty, weakness, numbness and headaches. Psychiatric/Behavioral: Positive for confusion. History reviewed. No pertinent past medical history. History reviewed. No pertinent surgical history. No family history on file. Social History Socioeconomic History Marital status: Tobacco Use Smoking status: Former Current packs/day: 0.00 Types: Cigarettes Quit date: 1995 Years since quittin.9 Smokeless tobacco: Never Vaping Use Vaping status: Never Used Substance and Sexual Activity Alcohol use: Never Drug use: Never Sexual activity: Defer Not on File Prior to Admission medications Not on File Neurological Exam Mental Status Alert. Oriented to person, place, time and situation. Speech is normal. Language is fluent with no aphasia. Attention and concentration are normal. Cranial Nerves CN II: Visual hernandez full to confrontation. CN III, IV, : Extraocular movements intact bilaterally. Pupils equal round and reactive to light bilaterally. CN V: Facial sensation is normal. CN VII: Full and symmetric facial movement. CN VIII: Hearing appears to be intact bilaterally. CN XII: Tongue midline without atrophy or fasciculations. Motor Normal muscle bulk throughout. Normal muscle tone. Strength is 5/5 throughout all four extremities. Sensory Sensation is intact to light touch, pinprick, vibration and proprioception in all four extremities. Coordination Right: Spqoym-kc-imfz normal. Mnei-ml-omgo normal.Left: Dgqzkp-pc-mnzk normal. Pptz-mh-onlo normal. Gait Not observed. Physical Exam Vitals and nursing note reviewed. Constitutional: General: He is not in acute distress. Appearance: Normal appearance. He is not ill-appearing. HENT: Head: Normocephalic. Mouth/Throat: Mouth: Mucous membranes are moist. Eyes: Extraocular Movements: Extraocular movements intact. Pupils: Pupils are equal, round, and reactive to light. Cardiovascular: Rate and Rhythm: Regular rhythm. Tachycardia present. Pulmonary: Effort: Pulmonary effort is normal. No respiratory distress. Comments: On room air Skin: General: Skin is warm and dry. Neurological: General: No focal deficit present. Mental Status: He is alert and oriented to person, place, and time. Cranial Nerves: No cranial nerve deficit. Sensory: No sensory deficit. Motor: Motor strength is normal.No weakness. Coordination: Coordination normal. Psychiatric: Mood and Affect: Mood normal. Speech: Speech normal. Behavior: Behavior normal. Acute Stroke Data Thrombolytic Inclusion / Exclusion Criteria Time: 03:36 EST on 07/17/2025 Person Administering Scale: Vesna Thompson APRN YES NO INCLUSION CRITERIA CLASS I [x] [] Suspected diagnosis of acute ischemic stroke with measureable neurological deficit. Low NIHSS with disabling stroke symptoms. [] [x] Onset of stroke symptoms < 3 hours before beginning treatment >/ 18 years old Stroke symptom onset = time patient was last seen well or without symptoms (LKW) [] [x] Onset of symptoms between 3-4.5 hours: >/= 80 years old (safe Class IIa) with history of both diabetes and prior CVA (reasonable Class IIb) AND NIHSS </= 25 *If not eligible for IV Thrombolytic consider neuro intervention for LKW within 24 hours YES NO EXCLUSION CRITERIA (CONTRAINDICATIONS) CLASS III EVIDENCE HARM [] [] Blood pressure >185/110 medically refractory to IV medications [] [] Active bleeding at a non-compressible site [] [] Active intracranial hemorrhage (ICH) [] [] Symptoms suggestive of subarachnoid hemorrhage (SAH) [] [] GI bleed within 21 days [] [] Ischemic stroke within 3 months [] [] Severe head trauma within 3 months [] [] Intracranial or intraspinal surgery within 3 months [] [] Current GI malignancy [] [] Intracranial neoplasm [] [] Infective endocarditis [] [] Aortic arch dissection [] [] Active coagulopathy with INR >1.7, platelets <100,000, PTT > 40 sec, PT > 15 sec *For warfarin, administration can begin before blood tests resulted. Discontinue for above values. [] [] Treatment dose* of LMWH (Lovenox) in last 24 hours *prophylactic dosages are not a contraindication [] [] Concurrent use of antiplatelet agents' glycoprotein inhibitors IIb/IIIa (Integrilin, etc.) [] [] Thrombin or factor Xa inhibitors (Eliquis, Xarelto, Arixtra) taken in last 48 hours YES NO CLASS II: AIS WITH THE FOLLOWING CONDITIONS - TREATMENT RISKS SHOULD BE WEIGHED AGAINST POSSIBLE BENEFITS. [] [] Major trauma in last 14 days, recent major surgery in last 14 days, intracranial arterial dissection, giant unruptured and unsecured intracranial aneurysm, pericarditis [] [] The risks, benefits, and alternatives have been discussed with the patient or family related to the administration of IV thrombolytic therapy for stroke symptoms. [] [] I have discussed and reviewed the patient's case and imaging with the attending prior to IV thrombolytic therapy. TIME N/A Time IV thrombolytic administered Hospital Meds: Scheduled- aspirin, 81 mg, Oral, Daily Or aspirin, 300 mg, Rectal, Daily atorvastatin, 80 mg, Oral, Nightly clopidogrel, 75 mg, Oral, Daily insulin regular, 2-9 Units, Subcutaneous, Q6H Infusions- PRNs- dextrose dextrose glucagon (human recombinant) Functional Status Prior to Current Stroke/Kevin Score: MODIFIED KEVIN SCALE (to be assessed for each patient having history of stroke) []Stroke history but not assessed [x]0: No symptoms at all []1: No significant disability despite symptoms []2: Slight disability []3: Moderate disability []4: Moderately severe disability []5: Severe disability []6: NIH Stroke Scale Time: 0300 EST Person Administering Scale: Vesna Thompson APRN 1a. Level of Consciousness: 0-->Alert, keenly responsive 1b. LOC Questions: 0-->Answers both questions correctly 1c. LOC Commands: 0-->Performs both tasks correctly 2. Best Gaze: 0-->Normal 3. Visual: 0-->No visual loss 4. Facial Palsy: 0-->Normal symmetrical movements 5a. Motor Arm, Left: 0-->No drift, limb holds 90 (or 45) degrees for full 10 secs 5b. Motor Arm, Right: 0-->No drift, limb holds 90 (or 45) degrees for full 10 secs 6a. Motor Leg, Left: 0-->No drift, leg holds 30 degree position for full 5 secs 6b. Motor Leg, Right: 0-->No drift, leg holds 30 degree position for full 5 secs 7. Limb Ataxia: 0-->Absent 8. Sensory: 0-->Normal, no sensory loss 9. Best Language: 0-->No aphasia, normal 10. Dysarthria: 0-->Normal 11. Extinction and Inattention (formerly Neglect): 0-->No abnormality Total (NIH Stroke Scale): 0 Results Reviewed: I have personally reviewed current lab, radiology, and data and agree with results. CT head without contrast reveals hypodensity within the right frontal lobe concerning for subacute/chronic stroke. No evidence of hemorrhage. CTA head/neck with distal cavernous right ICA occlusion with reconstitution in the paraclinoid segment, occlusion of the right vertebral artery, and multifocal intracranial atherosclerotic disease. Labs from OSH WBC 9.2 H/H 17.9/52.1 Platelets 282 Glucose 331 Creatinine 1.00, BUN 20 Lactic acid 2.6 AST 36 ALT 24 WBC Date Value Ref Range Status 07/18/2025 10.50 3.40 - 10.80 10*3/mm3 Final Hemoglobin Date Value Ref Range Status 07/18/2025 16.9 13.0 - 17.7 g/dL Final Hematocrit Date Value Ref Range Status 07/18/2025 48.9 37.5 - 51.0 % Final Platelets Date Value Ref Range Status 07/18/2025 268 140 - 450 10*3/mm3 Final Lab Results Component Value Date GLUCOSE 232 (H) 07/18/2025 BUN 15.4 07/18/2025 CREATININE 0.87 07/18/2025 NA 137 07/18/2025 K 3.9 07/18/2025 CL 101 07/18/2025 CALCIUM 10.3 07/18/2025 PROTEINTOT 7.2 07/18/2025 ALBUMIN 4.0 07/18/2025 ALT 14 07/18/2025 AST 19 07/18/2025 ALKPHOS 95 07/18/2025 BILITOT 0.8 07/18/2025 GLOB 3.2 07/18/2025 AGRATIO 1.3 07/18/2025 BCR 17.7 07/18/2025 ANIONGAP 10.5 07/18/2025 EGFR 94.0 07/18/2025 Lipid Panel 07/18/2025 02:51 Lipid Panel Total Cholesterol 233 Triglycerides 305 HDL Cholesterol 31 VLDL Cholesterol 56 LDL Cholesterol 146 LDL/HDL Ratio 4.55 Lab 07/18/25 0250 HEMOGLOBIN A1C 10.90* Assessment/Plan: This is a 70 year old male with no known medical history, has not seen a doctor in 5 years, who presents as a transfer from [facility] where he was evaluated for a 10 day history of AMS. Family had reportedly been encouraging the patient to seek medical care but he had declines. His niece, who is a nurse, saw him today and noticed abnormal behaviors (sitting backward on the couch, starringect.) and succeeded in getting him to go to the ED. [facility] at OSH 0. BP 133/75. CT head showed a hypodensity within the right frontal lobe concerning for subacute/chronic infarct. CTA at OSH revealed occlusion of the right cavernous ICA and occlusion of the right vertebral artery of unknown chronicity. Of note, glucose was reported at 331. Patient was transferred to [facility] for stroke workup. Patient was loaded with aspirin and Plavix prior to transfer. Patient was not deemed a candidate for any acute stroke interventions given extended LKW. He will be admitted to the hospitalist service for further evaluation. 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 ESUS -TIA/CVA order set without thrombolytic therapy has been initiated -NPO until bedside nursing dysphagia screen completed -MRI brain without -TTE with bubble study and carotid US in AM -Orthostatic vital signs -SBP goal 120-160 given symptoms have been ongoing for >24 hours; management per primary team -A1c 10.90, goal <7; management per primary team, hospital educator to meet with patient prior to discharge -LDL 146, goal <70 for secondary stroke prevention; continue atorvastatin 80 mg daily -Recheck lactic acid; elevated at OSH; consider blood cultures given recent dental abscess/infection -CT soft tissue head/neck to evaluate mass seen on CT head; hospitalist to order -Meds: [place] aspirin 81 mg daily (received asa 324 mg at OSH). Continue Plavix 75 mg daily (loaded with 300 mg at OSH) -Activity as tolerated, fall risk precautions -PT/OT/ELECTROMEDICAL EQUIPMENT REPAIRER evaluation Plan of care was discussed with patient and his at bedside as well as primary RN and Dr. Goyal(hospitalist). Stroke neurology will continue to follow. Please call with any questions or concerns. Thank you for this consult. Vesna Thompson MSN, EDUCATIONAL PROGRAM ASSISTANT, [facility] Stroke Neurology July 18, 2025 17:55 EST documented in this encounter Nursing Notes * Lavonne Mccracken RN - 07/19/2025 4:29 PM EST Problem: Adult Inpatient Plan of Care Goal: Plan of Care Review Outcome: Met Goal: Patient-Specific Goal (Individualized) Outcome: Met Goal: Absence of Hospital-Acquired Illness or Injury Outcome: Met Intervention: Identify and Manage Fall Risk Recent Flowsheet Documentation Taken 07/19/2025 1200 by Lavonne Mccracken RN Safety Promotion/Fall Prevention: assistive device/personal items within reach clutter free environment maintained fall prevention program maintained lighting adjusted nonskid shoes/slippers when out of bed room organization consistent safety round/check completed activity supervised Taken 07/19/2025 1000 by Lavonne Mccracken RN Safety Promotion/Fall Prevention: assistive device/personal items within reach clutter free environment maintained fall prevention program maintained lighting adjusted nonskid shoes/slippers when out of bed room organization consistent safety round/check completed activity supervised Taken 07/19/2025 0800 by Lavonne Mccracken RN Safety Promotion/Fall Prevention: activity supervised assistive device/personal items within reach clutter free environment maintained fall prevention program maintained lighting adjusted nonskid shoes/slippers when out of bed room organization consistent safety round/check completed Intervention: Prevent Skin Injury Recent Flowsheet Documentation Taken 07/19/2025 1200 by Lavonne Mccracken RN Body Position: weight shifting Skin Protection: silicone border foam - sacrum/coccyx silicone border foam - heel protective footwear used incontinence pads utilized Taken 07/19/2025 1000 by Lavonne Mccracken RN Body Position: weight shifting Skin Protection: silicone border foam - sacrum/coccyx silicone border foam - heel protective footwear used incontinence pads utilized Taken 07/19/2025 0800 by Lavonne Mccracken RN Body Position: position changed independently Skin Protection: silicone border foam - sacrum/coccyx silicone border foam - heel protective footwear used incontinence pads utilized Intervention: Prevent and Manage VTE (Venous Thromboembolism) Risk Recent Flowsheet Documentation Taken 07/19/2025 0800 by Lavonne Mccracken RN VTE Prevention/Management: (See MAR) Bilateral SCDs (sequential compression devices) off other (see comments) Intervention: Prevent Infection Recent Flowsheet Documentation Taken 07/19/2025 1200 by Lavonne Mccracken RN Infection Prevention: environmental surveillance performed equipment surfaces disinfected hand hygiene promoted personal protective equipment utilized rest/sleep promoted single patient room provided Taken 07/19/2025 1000 by Lavonne Mccracken RN Infection Prevention: environmental surveillance performed equipment surfaces disinfected hand hygiene promoted personal protective equipment utilized rest/sleep promoted single patient room provided Taken 07/19/2025 0800 by Lavonne Mccracken RN Infection Prevention: environmental surveillance performed equipment surfaces disinfected hand hygiene promoted personal protective equipment utilized rest/sleep promoted single patient room provided Goal: Optimal Comfort and Wellbeing Outcome: Met Intervention: Provide Person-Centered Care Recent Flowsheet Documentation Taken 07/19/2025 0800 by Lavonne Mccracken RN Trust Relationship/Rapport: care explained choices provided questions answered questions encouraged reassurance provided thoughts/feelings acknowledged Goal: Readiness for Transition of Care Outcome: Met Problem: Fall Injury Risk Goal: Absence of Fall and Fall-Related Injury Outcome: Met Intervention: Identify and Manage Contributors Recent Flowsheet Documentation Taken 07/19/2025 1200 by Lavonne Mccracken RN Self-Care Promotion: independence encouraged BADL personal objects within reach Taken 07/19/2025 1000 by Lavonne Mccracken RN Self-Care Promotion: independence encouraged BADL personal objects within reach Taken 07/19/2025 0800 by Lavonne Mccracken RN Medication Review/Management: medications reviewed Intervention: Promote Injury-Free Environment Recent Flowsheet Documentation Taken 07/19/2025 1200 by Lavonne Mccracken RN Safety Promotion/Fall Prevention: assistive device/personal items within reach clutter free environment maintained fall prevention program maintained lighting adjusted nonskid shoes/slippers when out of bed room organization consistent safety round/check completed activity supervised Taken 07/19/2025 1000 by Lavonne Mccracken RN Safety Promotion/Fall Prevention: assistive device/personal items within reach clutter free environment maintained fall prevention program maintained lighting adjusted nonskid shoes/slippers when out of bed room organization consistent safety round/check completed activity supervised Taken 07/19/2025 0800 by Lavonne Mccracken RN Safety Promotion/Fall Prevention: activity supervised assistive device/personal items within reach clutter free environment maintained fall prevention program maintained lighting adjusted nonskid shoes/slippers when out of bed room organization consistent safety round/check completed Goal Outcome Evaluation: Patient discharged per personal vehicle with . * Kelsie Spicer MS CF-ELECTROMEDICAL EQUIPMENT REPAIRER - 07/19/2025 9:58 AM EST Goal Outcome Evaluation: Plan of Care Reviewed With: patient ELECTROMEDICAL EQUIPMENT REPAIRER Swallowing Diagnosis: functional oral phase, functional pharyngeal phase (07/19/25 0930) * Sadie Jenkins RN - 07/19/2025 6:32 AM EST Problem: Adult Inpatient Plan of Care Goal: Plan of Care Review 07/19/2025 0632 by Sadie Jenkins RN Outcome: Progressing 07/19/2025 0631 by Sadie Jenkins RN Outcome: Progressing Goal: Patient-Specific Goal (Individualized) 07/19/2025 0632 by Sadie Jenkins RN Outcome: Progressing 07/19/2025 0631 by Sadie Jenkins RN Outcome: Progressing Goal: Absence of Hospital-Acquired Illness or Injury 07/19/2025 0632 by Sadie Jenkins RN Outcome: Progressing 07/19/2025 0631 by Sadie Jenkins RN Outcome: Progressing Intervention: Identify and Manage Fall Risk Recent Flowsheet Documentation Taken 07/19/2025 0600 by Sadie Jenkins RN Safety Promotion/Fall Prevention: activity supervised assistive device/personal items within reach clutter free environment maintained nonskid shoes/slippers when out of bed room organization consistent safety round/check completed Taken 07/19/2025 0400 by Sadie Jenkins RN Safety Promotion/Fall Prevention: activity supervised assistive device/personal items within reach clutter free environment maintained nonskid shoes/slippers when out of bed room organization consistent safety round/check completed Taken 07/19/2025 0200 by Sadie Jenkins RN Safety Promotion/Fall Prevention: activity supervised assistive device/personal items within reach clutter free environment maintained nonskid shoes/slippers when out of bed room organization consistent safety round/check completed Taken 07/19/2025 0000 by Sadie Jenkins RN Safety Promotion/Fall Prevention: activity supervised assistive device/personal items within reach clutter free environment maintained nonskid shoes/slippers when out of bed room organization consistent safety round/check completed Taken 07/18/2025 2200 by Sadie Jenkins RN Safety Promotion/Fall Prevention: activity supervised assistive device/personal items within reach clutter free environment maintained nonskid shoes/slippers when out of bed room organization consistent safety round/check completed Taken 07/18/2025 2000 by Sadie Jenkins RN Safety Promotion/Fall Prevention: activity supervised assistive device/personal items within reach clutter free environment maintained nonskid shoes/slippers when out of bed room organization consistent safety round/check completed Intervention: Prevent Skin Injury Recent Flowsheet Documentation Taken 07/19/2025 0600 by Sadie Jenkins RN Body Position: position changed independently Skin Protection: protective footwear used Taken 07/19/2025 0400 by Sadie Jenkins RN Body Position: position changed independently Skin Protection: protective footwear used Taken 07/19/2025 0200 by Sadie Jenkins RN Body Position: position changed independently Skin Protection: protective footwear used Taken 07/19/2025 0000 by Sadie Jenkins RN Body Position: position changed independently Skin Protection: protective footwear used Taken 07/18/2025 2200 by Sadie Jenkins RN Body Position: position changed independently Skin Protection: protective footwear used Taken 07/18/20251999 by Sadie Jenkins RN Body Position: position changed independently Skin Protection: incontinence pads utilized Intervention: Prevent and Manage VTE (Venous Thromboembolism) Risk Recent Flowsheet Documentation Taken 07/18/20251999 by Sadie Jenkins RN VTE Prevention/Management: Pharmacologic therapy implemented Intervention: Prevent Infection Recent Flowsheet Documentation Taken 07/19/2025 0600 by Sadie Jenkins RN Infection Prevention: environmental surveillance performed single patient room provided Taken 07/19/2025 0400 by Sadie Jenkins RN Infection Prevention: environmental surveillance performed single patient room provided Taken 07/19/2025 0200 by Sadie Jenkins RN Infection Prevention: environmental surveillance performed single patient room provided Taken 07/19/2025 0000 by Sadie Jenkins RN Infection Prevention: environmental surveillance performed single patient room provided Taken 07/18/2025 2200 by Sadie Jenkins RN Infection Prevention: environmental surveillance performed single patient room provided Taken 07/18/20251999 by Sadie Jenkins RN Infection Prevention: environmental surveillance performed single patient room provided Goal: Optimal Comfort and Wellbeing 07/19/2025 0632 by Sadie Jenkins RN Outcome: Progressing 07/19/2025 0631 by Sadie Jenkins RN Outcome: Progressing Intervention: Provide Person-Centered Care Recent Flowsheet Documentation Taken 07/19/2025 0600 by Sadie Jenkins RN Trust Relationship/Rapport: care explained thoughts/feelings acknowledged questions answered Taken 07/19/2025 0400 by Sadie Jenkins RN Trust Relationship/Rapport: care explained thoughts/feelings acknowledged questions answered Taken 07/19/2025 0200 by Sadie Jenkins RN Trust Relationship/Rapport: care explained thoughts/feelings acknowledged questions answered Taken 07/19/2025 0000 by Sadie Jenkins RN Trust Relationship/Rapport: care explained thoughts/feelings acknowledged questions answered Taken 07/18/2025 2200 by Sadie Jenkins RN Trust Relationship/Rapport: care explained thoughts/feelings acknowledged questions answered Taken 07/18/2025 2000 by Sadie Jenkins RN Trust Relationship/Rapport: care explained thoughts/feelings acknowledged Goal: Readiness for Transition of Care 07/19/2025 0632 by Sadie Jenkins RN Outcome: Progressing 07/19/2025 0631 by Sadie Jenkins RN Outcome: Progressing Goal Outcome Evaluation: No acute events overnight. AO x 4, room air, sinus rhythm. ELECTROMEDICAL EQUIPMENT REPAIRER eval with [facility] today. Plan of care ongoing. * Aliyah Reilly RN - 07/18/2025 6:46 PM EST Problem: Adult Inpatient Plan of Care Goal: Plan of Care Review Outcome: Not Progressing Flowsheets Taken 07/18/2025 1845 by Aliyah Reilly RN Outcome Evaluation: POC ongoing, ELECTROMEDICAL EQUIPMENT REPAIRER eval with [facility] scheduled tomorrow, all ordered tests complete. Taken 07/18/2025 1610 by Corrine Brito MS [facility]-ELECTROMEDICAL EQUIPMENT REPAIRER Plan of Care Reviewed With: patient spouse family Goal: Patient-Specific Goal (Individualized) Outcome: Not Progressing Goal: Absence of Hospital-Acquired Illness or Injury Outcome: Not Progressing Intervention: Identify and Manage Fall Risk Recent Flowsheet Documentation Taken 07/18/2025 1600 by Aliyah Reilly RN Safety Promotion/Fall Prevention: fall prevention program maintained Taken 07/18/2025 1400 by Aliyah Reilly RN Safety Promotion/Fall Prevention: fall prevention program maintained Taken 07/18/2025 1200 by Aliyah Reilly RN Safety Promotion/Fall Prevention: fall prevention program maintained Taken 07/18/2025 1000 by Aliyah Reilly RN Safety Promotion/Fall Prevention: fall prevention program maintained Taken 07/18/2025 0926 by Aliyah Reilly RN Safety Promotion/Fall Prevention: fall prevention program maintained Intervention: Prevent Skin Injury Recent Flowsheet Documentation Taken 07/18/2025 1600 by Aliyah Reilly RN Body Position: position changed independently Skin Protection: incontinence pads utilized Taken 07/18/2025 1400 by Aliyah Reilly RN Body Position: position changed independently Skin Protection: incontinence pads utilized Taken 07/18/2025 1200 by Aliyah Reilly RN Body Position: position changed independently Skin Protection: incontinence pads utilized Taken 07/18/2025 1000 by Aliyah Reilly RN Body Position: position changed independently Skin Protection: incontinence pads utilized Taken 07/18/2025 0926 by Aliyah Reilly RN Body Position: position changed independently Skin Protection: incontinence pads utilized Intervention: Prevent Infection Recent Flowsheet Documentation Taken 07/18/2025 1600 by Aliyah Reilly RN Infection Prevention: environmental surveillance performed Taken 07/18/2025 1400 by Aliyah Reilly RN Infection Prevention: environmental surveillance performed Taken 07/18/2025 1200 by Aliyah Reilly RN Infection Prevention: environmental surveillance performed Taken 07/18/2025 1000 by Aliyah Reilly RN Infection Prevention: environmental surveillance performed Taken 07/18/2025 0926 by Aliyah Reilly RN Infection Prevention: environmental surveillance performed Goal: Optimal Comfort and Wellbeing Outcome: Not Progressing Goal: Readiness for Transition of Care Outcome: Not Progressing Goal Outcome Evaluation: Outcome Evaluation: POC ongoing, ELECTROMEDICAL EQUIPMENT REPAIRER eval with MBS scheduled tomorrow, all ordered tests complete. Corrine Mcmullen MS CCC-ELECTROMEDICAL EQUIPMENT REPAIRER - 07/18/2025 4:10 PM EST Goal Outcome Evaluation: Plan of Care Reviewed With: patient, spouse, family Anticipated Discharge Disposition (ELECTROMEDICAL EQUIPMENT REPAIRER): inpatient rehabilitation facility ELECTROMEDICAL EQUIPMENT REPAIRER Diagnosis: mild-moderate, cognitive-linguistic disorder (07/18/25 1500) ELECTROMEDICAL EQUIPMENT REPAIRER Swallowing Diagnosis: R/O pharyngeal dysphagia, esophageal dysphagia (07/18/25 1445) * Kaylee London PT - 07/18/2025 11:10 AM EST Goal Outcome Evaluation: Plan of Care Reviewed With: patient Outcome Evaluation: PT initial evaluation completed for pt presenting with generalized weakness, mild balance deficits, and decreased functional mobility. Pt ambulated 150ft with CGA. Pt's decreased independence warrants regulated program manager care. Recommend D/C home with assistance and OP OT/PT services. Anticipated Discharge Disposition (PT): home with assist, home with outpatient therapy services * Valencia Borjas OT - 07/18/2025 11:07 AM EST Goal Outcome Evaluation: Plan of Care Reviewed With: patient Progress: improving Outcome Evaluation: OT eval complete. Pt presents w/ c/o significant fatigue, mild balance deficits, and mild cogntive deficits warranting cont skilled IPOT POC to promote return to PLOF. Recommend pt DC home w/ assist and OP OT/PT services based on current level of performance. Anticipated Discharge Disposition (OT): home with assist, home with outpatient therapy services * Sadie Jenkins RN - 07/18/2025 7:27 AM EST Problem: Adult Inpatient Plan of Care Goal: Plan of Care Review Outcome: Progressing Goal: Patient-Specific Goal (Individualized) Outcome: Progressing Goal: Absence of Hospital-Acquired Illness or Injury Outcome: Progressing Intervention: Identify and Manage Fall Risk Recent Flowsheet Documentation Taken 07/18/2025 0600 by Sadie Jenkins RN Safety Promotion/Fall Prevention: activity supervised assistive device/personal items within reach clutter free environment maintained nonskid shoes/slippers when out of bed room organization consistent safety round/check completed Taken 07/18/2025 0400 by Sadie Jenkins RN Safety Promotion/Fall Prevention: activity supervised assistive device/personal items within reach clutter free environment maintained nonskid shoes/slippers when out of bed room organization consistent safety round/check completed Taken 07/18/2025 0233 by Sadie Jenkins RN Safety Promotion/Fall Prevention: activity supervised assistive device/personal items within reach clutter free environment maintained nonskid shoes/slippers when out of bed room organization consistent safety round/check completed Intervention: Prevent Skin Injury Recent Flowsheet Documentation Taken 07/18/2025 0600 by Sadie Jenkins RN Body Position: position changed independently Skin Protection: protective footwear used Taken 07/18/2025 0400 by Sadie Jenkins RN Body Position: position changed independently Skin Protection: protective footwear used Taken 07/18/2025 0233 by Sadie Jenkins RN Body Position: position changed independently Skin Protection: protective footwear used Intervention: Prevent Infection Recent Flowsheet Documentation Taken 07/18/2025 0600 by Sadie Jenkins RN Infection Prevention: environmental surveillance performed single patient room provided Taken 07/18/2025 0400 by Sadie Jenkins RN Infection Prevention: environmental surveillance performed single patient room provided Taken 07/18/2025 0233 by Sadie Jenkins RN Infection Prevention: environmental surveillance performed single patient room provided Goal: Optimal Comfort and Wellbeing Outcome: Progressing Intervention: Provide Person-Centered Care Recent Flowsheet Documentation Taken 07/18/2025 0600 by Sadie Jenkins RN Trust Relationship/Rapport: care explained thoughts/feelings acknowledged questions answered Taken 07/18/2025 0400 by Sadie Jenkins RN Trust Relationship/Rapport: care explained thoughts/feelings acknowledged questions answered Taken 07/18/2025 0233 by Sadie Jenkins RN Trust Relationship/Rapport: thoughts/feelings acknowledged Goal: Readiness for Transition of Care Outcome: Progressing Intervention: Mutually Develop Transition Plan Recent Flowsheet Documentation Taken 07/18/2025 023 by Sadie Jenkins RN Transportation Anticipated: family or friend will provide Patient/Family Anticipated Services at Transition: none Patient/Family Anticipates Transition to: home with family Taken 07/18/2025 022 by Sadie Jenkins RN Equipment Currently Used at Home: none Goal Outcome Evaluation: No acute events overnight. AO x 4, RA, sinus tachycardia. Plan of care ongoing. documented in this encounter Miscellaneous Notes * Case Management/Social Work - Rosaura Wright RN - 07/19/2025 3:05 PM EST Case Management Discharge Note Final Note: Spoke with patient in room. PT/ELECTROMEDICAL EQUIPMENT REPAIRER recommend outpatient services at discharge. Patient agreeable. Referral for outpatient PT faxed to [facility] at [phone]. Referral for outpatient ELECTROMEDICAL EQUIPMENT REPAIRER faxed to [facility] at [phone]. They will call patien to schedule appointments. No other needs noted. Selected Continued Care - Admitted Since 07/18/2025 Destination No services have been selected for the patient. Durable Medical Equipment No services have been selected for the patient. Dialysis/Infusion No services have been selected for the patient. Home Medical Care No services have been selected for the patient. Therapy No services have been selected for the patient. Community & DME No services have been selected for the patient. Community Resources No active community resources. Transportation Services Transportation: Private Transportation Final Discharge Disposition Code: 01 - home or self-care * MBS/VFSS/FEES - Kelsie Spicer MS CF-ELECTROMEDICAL EQUIPMENT REPAIRER - 07/19/2025 9:59 AM EST Images from the original note were not included. Acute Care - Speech Language Pathology Swallow Initial Evaluation [place] Modified Barium Swallow Study (MBS) Patient Name: Eliel Spence : 1955 Today's Date: 07/19/2025 Admit Date: 07/18/2025 Visit Dx: ICD-10-CM ICD-9-CM 1. Ischemic stroke of frontal lobe I63.9 434.91 2. Cognitive communication disorder R41.841 315.32 Patient Active Problem List Diagnosis Ischemic stroke of frontal lobe Dysphagia Dental abscess Type 2 diabetes mellitus with hyperglycemia Mixed hyperlipidemia Sinus tachycardia Elevated blood pressure reading History reviewed. No pertinent past medical history. History reviewed. No pertinent surgical history. ELECTROMEDICAL EQUIPMENT REPAIRER Recommendation and Plan Recommended discharge disposition is based on the functional assessment performed by PT/OT/Speech therapy (as applicable) and may not reflect the medical necessity determined by your provider or services covered by an individual patient's insurance plan or patient resource. ELECTROMEDICAL EQUIPMENT REPAIRER Swallowing Diagnosis: functional oral phase, functional pharyngeal phase (07/19/25929) ELECTROMEDICAL EQUIPMENT REPAIRER Diet Recommendation: soft to chew textures, chopped, thin liquids, other (see comments) (Pt preference) (07/19/25929) Recommended Precautions and Strategies: upright posture during/after eating, general aspiration precautions, reflux precautions (07/19/25929) ELECTROMEDICAL EQUIPMENT REPAIRER Rec. for Method of Medication Administration: as tolerated (07/19/25929) Monitor for Signs of Aspiration: notify ELECTROMEDICAL EQUIPMENT REPAIRER if any concerns (07/19/25929) Swallow Criteria for Skilled Therapeutic Interventions Met: no problems identified which require skilled intervention (07/19/25929) Therapy Frequency (Swallow): evaluation only (07/19/25929) Oral Care Recommendations: Oral Care BID/PRN, Toothbrush (07/19/25929) SWALLOW EVALUATION (Last 72 Hours) ELECTROMEDICAL EQUIPMENT REPAIRER Adult Swallow Evaluation Row Name 07/19/2592907/18/25 1500 07/18/25 1445 Rehab Evaluation Document Type evaluation -SM evaluation -AC evaluation -AC Subjective Information no complaints -SM -- no complaints -AC Patient Observations alert;cooperative -SM -- alert;cooperative -AC Patient/Family/Caregiver Comments/Observations -- -- Pt's spouse and family present. -AC Patient Effort good -SM -- good -AC Symptoms Noted During/After Treatment none -SM -- -- General Information Patient Profile Reviewed yes -SM yes -AC yes -AC Pertinent History Of Current Problem See initial eval -SM -- Transferred from OSH for higher level of care when imaging revealed infarct. AMS x10 days. Also c/o LUE weakness, dysphagia (x1 year). MRIrevealed late acute vs subacute infarct within R frontal lobe. Recent tooth abscess s/p extraction w/ residual L cheek/mandibular edema. Pt passed RN stroke swallow screen & PO diet was initiated. Consult received after pt exhibited choking episode w/ lunch. Pt/family reported pt had taken first bite of pot roast (may have been a larger bite as he was hungry/eager), when felt like meat had lodged in upper throat, causing pt to gag/regurgitation for 30 minutes or so. Pt reported frequent judah lar episodes w/ meats & occasionally breads for the last year. Pt takes famotidine OTC. Has notsought medical care for years and does not take prescription medication. -AC Current Method of Nutrition soft to chew textures;chopped;thin liquids -SM -- regular textures;thinliquids -AC Precautions/Limitations, Vision WFL;for purposes of eval -SM -- WFL;for purposes of eval -AC Precautions/Limitations, Hearing hearing impairment, bilaterally -SM -- WFL;for purposes of eval -AC Prior Level of Function-Communication WFL -SM -- WFL -AC Prior Level of Function-Swallowing esophageal concerns -SM -- no diet consistency restrictions;esophageal concerns difficulty swallowing meat and breads x1 yr -AC Plans/Goals Discussed with patient;agreed upon -SM -- patient and family;agreed upon -AC Barriers to Rehab none identified -SM -- none identified -AC Patient's Goals for Discharge patient did not state -SM -- patient did not state -AC Family Goals for Discharge -- -- family did not state -AC Pain Pretreatment Pain Rating 0/10 - no pain -SM -- 0/10 - no pain -AC Posttreatment Pain Rating 0/10 - no pain -SM -- 0/10 - no pain -AC Oral Motor Structure and Function Dentition Assessment -- -- natural, present and adequate recent L mandibular tooth extraction--pt reported ongoing edema -AC Secretion Management -- -- WNL/WFL -AC Mucosal Quality -- -- moist, healthy -AC Volitional Cough -- -- WFL -AC Oral Musculature and Cranial Nerve Assessment Oral Motor General Assessment -- -- [facility] General Eating/Swallowing Observations Respiratory Support Currently in Use room air - -- room air - Eating/Swallowing Skills self-fed - -- fed by ELECTROMEDICAL EQUIPMENT REPAIRER;self-fed;appropriate self- feeding skills observed - Positioning During Eating upright 90 degree;upright in chair - -- upright 90 degree;upright in bed - Utensils Used spoon;cup;straw - -- spoon;cup;straw - Consistencies Trialed regular textures;pureed;thin liquids - -- ice chips;thin liquids;pudding thick;regular textures - Clinical Swallow Eval Oral Prep Phase -- -- [facility] - Oral Transit -- -- [facility] - Oral Residue -- -- [facility] - Pharyngeal Phase -- -- no overt signs/symptoms of pharyngeal impairment - Clinical Swallow Evaluation Summary -- -- Pt tolerated thin liquid via cup and sequential straw drinks, pudding consistency, and christopher crackers w/o overt clinical s/sxs aspiration; however, given report of choking/regurgitation episode w/ lunch earlier + 1 year history of dysphagia to solids, recommended softer diet texture and MBS. Pt/family in agreement. - MBS/VFSS Interpretation Oral Prep Phase WFL - -- -- Oral Transit Phase WFL - -- -- Oral Residue WFL - -- -- Initiation of Pharyngeal Swallow Initiation of Pharyngeal Swallow WFL - -- -- Pharyngeal Phase functional pharyngeal phase of swallowing - -- -- Esophageal Phase Esophageal Phase unremarkable;see radiology report for further details - -- -- ELECTROMEDICAL EQUIPMENT REPAIRER Evaluation Clinical Impression ELECTROMEDICAL EQUIPMENT REPAIRER Swallowing Diagnosis functional oral phase;functional pharyngeal phase - -- R/O pharyngeal dysphagia;esophageal dysphagia - Functional Impact no impact on function - -- risk of aspiration/pneumonia - Rehab Potential/Prognosis, Swallowing -- -- good, to achieve stated therapy goals - Swallow Criteria for Skilled Therapeutic Interventions Met no problems identified which require skilled intervention - -- demonstrates skilled criteria - Recommendations Therapy Frequency (Swallow) evaluation only - -- -- ELECTROMEDICAL EQUIPMENT REPAIRER Diet Recommendation soft to chew textures;chopped;thin liquids;other (see comments) Pt preference - -- soft to chew textures;chopped;thin liquids extra sauce/gravy - Recommended Diagnostics -- -- VFSS (MBS);with esophageal screen - Recommended Precautions and Strategies upright posture during/after eating;general aspiration precautions;reflux precautions - -- upright posture during/after eating;general aspiration precautions;reflux precautions - Oral Care Recommendations Oral Care BID/PRN;Toothbrush - -- Oral Care BID/PRN;Toothbrush -AC ELECTROMEDICAL EQUIPMENT REPAIRER Rec. for Method of Medication Administration as tolerated - -- as tolerated - Monitor for Signs of Aspiration notify ELECTROMEDICAL EQUIPMENT REPAIRER if any concerns - -- yes;notify ELECTROMEDICAL EQUIPMENT REPAIRER if any concerns - Anticipated Discharge Disposition (ELECTROMEDICAL EQUIPMENT REPAIRER) -- -- inpatient rehabilitation facility - User Don (r) = Recorded By, (t) = Taken By, (c) = Cosigned By Initials Name Effective Dates Corrine Brito, MS CCC-ELECTROMEDICAL EQUIPMENT REPAIRER 09/07/22 - Kelsie Manrique, MS CF-ELECTROMEDICAL EQUIPMENT REPAIRER 01/07/25 - EDUCATION The patient has been educated in the following areas: Dysphagia (Swallowing Impairment). ELECTROMEDICAL EQUIPMENT REPAIRER GOALS Row Name 07/18/25 1500 Patient will demonstrate functional cognitive-linguistic skills for return to discharge environment [place] with minimal cues -AC Time frame 2 weeks -AC ELECTROMEDICAL EQUIPMENT REPAIRER Diagnostic Treatment Patient will participate in further assessment in the following areas reading comprehension;graphicexpression -AC Time Frame (Diagnostic) 1 week -AC Attention Goal 1 (ELECTROMEDICAL EQUIPMENT REPAIRER) Improve Attention by Goal 1 (ELECTROMEDICAL EQUIPMENT REPAIRER) complete sustained attention task;90%;independently (over 90% accuracy) -AC Time Frame (Attention Goal 1, ELECTROMEDICAL EQUIPMENT REPAIRER) 1 week -AC Memory Skills Goal 1 (ELECTROMEDICAL EQUIPMENT REPAIRER) Improve Memory Skills Through Goal 1 (ELECTROMEDICAL EQUIPMENT REPAIRER) recalling unrelated word lists immediately;100%;with minimal cues (75-90%) -AC Time Frame (Memory Skills Goal 1, ELECTROMEDICAL EQUIPMENT REPAIRER) 1 week -AC Organizational Skills Goal 1 (ELECTROMEDICAL EQUIPMENT REPAIRER) Improve Thought Organization Through Goal 1 (ELECTROMEDICAL EQUIPMENT REPAIRER) completing a divergent naming task;concrete;completing a convergent naming task;abstract;80%;with minimal cues (75-90%) -AC Time Frame (Thought Organization Skills Goal 1, ELECTROMEDICAL EQUIPMENT REPAIRER) 1 week -AC Reasoning Goal 1 (ELECTROMEDICAL EQUIPMENT REPAIRER) Improve Reasoning Through Goal 1 (ELECTROMEDICAL EQUIPMENT REPAIRER) complete mental flexibility task;80%;with minimal cues (75-90%) -AC Time Frame (Reasoning Goal 1, ELECTROMEDICAL EQUIPMENT REPAIRER) 1 week -AC User Don (r) = Recorded By, (t) = Taken By, (c) = Cosigned By Initials Name Provider Type AC Corrine Brito MS CCC-ELECTROMEDICAL EQUIPMENT REPAIRER Speech and Language Pathologist Time Calculation: Time Calculation- ELECTROMEDICAL EQUIPMENT REPAIRER Row Name 07/19/25 0959 Time Calculation- ELECTROMEDICAL EQUIPMENT REPAIRER ELECTROMEDICAL EQUIPMENT REPAIRER Start Time 0930 -SM ELECTROMEDICAL EQUIPMENT REPAIRER Received On 07/19/25 -SM Untimed Charges 85247-HQ Motion Fluoro Eval Swallow Minutes 55 -SM Total Minutes Untimed Charges Total Minutes 55 -SM Total Minutes 55 -SM User Don (r) = Recorded By, (t) = Taken By, (c) = Cosigned By Initials Name Provider Type Kelsie Manrique MS CF-ELECTROMEDICAL EQUIPMENT REPAIRER Speech and Language Pathologist Therapy Charges for Today Code Description Service Date Service Provider Modifiers Qty [id number] HC [facility] MOTION FLUORO EVAL SWALLOW 4 07/19/2025 Kelsie Spicer MS CF-ELECTROMEDICAL EQUIPMENT REPAIRER GN 1 Kelsie Spicer MS CF-ELECTROMEDICAL EQUIPMENT REPAIRER 07/19/2025 * Case Management/Social Work - Rosaura Wright RN - 07/19/2025 9:41 AM EST Discharge Planning Assessment [facility] Patient Name: Eliel Spence Today's Date: 07/19/2025 Admit Date: 07/18/2025 Plan: Home Discharge Needs Assessment Row Name 07/19/25 0936 Living Environment People in Home spouse Current Living Arrangements home Potentially Unsafe Housing Conditions none Primary Care Provided by self Provides Primary Care For no one Family Caregiver if Needed spouse Quality of Family Relationships involved;supportive Able to Return to Prior Arrangements no Resource/Environmental Concerns Resource/Environmental Concerns none Transportation Concerns none Transition Planning Patient/Family Anticipates Transition to home Patient/Family Anticipated Services at Transition onsite case manager;rehabilitation services Transportation Anticipated family or friend will provide Discharge Needs Assessment Readmission Within the Last 30 Days no previous admission in last 30 days Equipment Currently Used at Home none Concerns to be Addressed discharge planning Anticipated Changes Related to Illness none Equipment Needed After Discharge none Discharge Plan Row Name 07/19/25 0937 Plan Plan Home Patient/Family in Agreement with Plan yes Plan Comments Spoke with patient in room to initiate discharge planning. He lives with his in [facility]. He is independent with ADL's. He has no DME at home and is not current with home health. His PCP is Sera Newell. He does not have an advanced directive. Verified that he has Medicare A/B. Mr. Spence does not have RX coverage, but he has his scripts filled at [facility]. His goal is to return home at discharge. Will await therapy recommendations to determine proper discharge placement. CM will continue to follow. Final Discharge Disposition Code 01 - home or self-care Continued Care and Services - Admitted Since 07/18/2025 No active coordination exists. Expected Discharge Date and Time Expected Discharge Date Expected Discharge Time Jul 20, 2025 Demographic Summary Row Name 07/19/25 0936 General Information Admission Type inpatient Arrived From emergency department Referral Source admission list Reason for Consult discharge planning Preferred Language [place] Functional Status Row Name 07/19/25 0936 Functional Status Usual Activity Tolerance good Current Activity Tolerance good Functional Status, IADL Medications independent Meal Preparation independent Housekeeping independent Laundry independent Shopping independent Psychosocial No documentation. Abuse/Neglect No documentation. Legal No documentation. Substance Abuse No documentation. Patient Forms No documentation. Rosaura Wright RN * Therapy Evaluation - Corrine Brito MS BREE-ELECTROMEDICAL EQUIPMENT REPAIRER - 07/18/2025 4:11 PM EST Images from the original note were not included. Acute Care - Speech Language Pathology Swallow Initial Evaluation [facility] Clinical Swallow Evaluation & Cognitive-Communication Evaluation Patient Name: Eliel Spence : 1955 Today's Date: 07/18/2025 Admit Date: 07/18/2025 Visit Dx: ICD-10-CM ICD-9-CM 1. Ischemic stroke of frontal lobe I63.9 434.91 2. Dysphagia, unspecified type R13.10 787.20 3. Cognitive communication disorder R41.841 315.32 Patient Active Problem List Diagnosis Ischemic stroke of frontal lobe Dysphagia Dental abscess Type 2 diabetes mellitus with hyperglycemia Mixed hyperlipidemia Sinus tachycardia Elevated blood pressure reading History reviewed. No pertinent past medical history. History reviewed. No pertinent surgical history. ELECTROMEDICAL EQUIPMENT REPAIRER Recommendation and Plan Recommended discharge disposition is based on the functional assessment performed by PT/OT/Speech therapy (as applicable) and may not reflect the medical necessity determined by your provider or services covered by an individual patient's insurance plan or patient resource. ELECTROMEDICAL EQUIPMENT REPAIRER Swallowing Diagnosis: R/O pharyngeal dysphagia, esophageal dysphagia (07/18/251444) ELECTROMEDICAL EQUIPMENT REPAIRER Diet Recommendation: soft to chew textures, chopped, thin liquids (extra sauce/gravy) () Recommended Precautions and Strategies: upright posture during/after eating, general aspiration precautions, reflux precautions (07/18/251444) ELECTROMEDICAL EQUIPMENT REPAIRER Rec. for Method of Medication Administration: as tolerated (07/18/251444) Monitor for Signs of Aspiration: yes, notify ELECTROMEDICAL EQUIPMENT REPAIRER if any concerns (07/18/251444) Recommended Diagnostics: VFSS ([facility]), with esophageal screen (07/18/251444) Swallow Criteria for Skilled Therapeutic Interventions Met: demonstrates skilled criteria () Anticipated Discharge Disposition (ELECTROMEDICAL EQUIPMENT REPAIRER): inpatient rehabilitation facility (07/18/251499) Rehab Potential/Prognosis, Swallowing: good, to achieve stated therapy goals (07/18/251444) Predicted Duration Therapy Intervention (Days): 2 weeks (07/18/251499) Oral Care Recommendations: Oral Care BID/PRN, Toothbrush (07/18/251444) SWALLOW EVALUATION (Last 72 Hours) ELECTROMEDICAL EQUIPMENT REPAIRER Adult Swallow Evaluation Row Name 07/18/25 1500 07/18/251444 Rehab Evaluation Document Type evaluation -AC evaluation -AC Subjective Information -- no complaints -AC Patient Observations -- alert;cooperative -AC Patient/Family/Caregiver Comments/Observations -- Pt's spouse and family present. -AC Patient Effort -- good -AC General Information Patient Profile Reviewed yes -AC yes -AC Pertinent History Of Current Problem -- Transferred from OSH for higher level of care when imaging revealed infarct. AMS x10 days. Also c/o LUE weakness, dysphagia (x1 year). MRI revealed late acute vs subacute infarct within R frontal lobe. Recent tooth abscess s/p extraction w/ residual L cheek/mandibular edema. Pt passed RN stroke swallow screen & PO diet was initiated. Consult received after pt exhibited choking episode w/ lunch. Pt/family reported pt had taken first bite of pot roast (may have been a larger bite as he was hungry/eager), when felt like meat had lodged in upper throat,causing pt to gag/regurgitation for 30 minutes or so. Pt reported frequent similar episodes w/ meats & occasionally breads for the last year. Pt takes famotidine OTC. Has not sought medical care for years and does not take prescription medication. -AC Current Method of Nutrition -- regular textures;thin liquids -AC Precautions/Limitations, Vision -- WFL;for purposes of eval -AC Precautions/Limitations, Hearing -- WFL;for purposes of eval -AC Prior Level of Function-Communication -- WFL -AC Prior Level of Function-Swallowing -- no diet consistency restrictions;esophageal concerns difficulty swallowing meat and breads x1 yr -AC Plans/Goals Discussed with -- patient and family;agreed upon - Barriers to Rehab -- none identified - Patient's Goals for Discharge -- patient did not state - Family Goals for Discharge -- family did not state -AC Pain Pretreatment Pain Rating -- 0/10 - no pain -AC Posttreatment Pain Rating -- 0/10 - no pain -AC Oral Motor Structure and Function Dentition Assessment -- natural, present and adequate recent L mandibular tooth extraction--pt reported ongoing edema -AC Secretion Management -- WNL/WFL -AC Mucosal Quality -- moist, healthy -AC Volitional Cough -- WFL -AC Oral Musculature and Cranial Nerve Assessment Oral Motor General Assessment -- WFL -AC General Eating/Swallowing Observations Respiratory Support Currently in Use -- room air - Eating/Swallowing Skills -- fed by ELECTROMEDICAL EQUIPMENT REPAIRER;self-fed;appropriate self-feeding skills observed - Positioning During Eating -- upright 90 degree;upright in bed - Utensils Used -- spoon;cup;straw -AC Consistencies Trialed -- ice chips;thin liquids;pudding thick;regular textures - Clinical Swallow Eval Oral Prep Phase -- WFL -AC Oral Transit -- WFL -AC Oral Residue -- WFL -AC Pharyngeal Phase -- no overt signs/symptoms of pharyngeal impairment - Clinical Swallow Evaluation Summary -- Pt tolerated thin liquid via cup and sequential straw drinks, pudding consistency, and christopher crackers w/o overt clinical s/sxs aspiration; however, given report of choking/regurgitation episode w/ lunch earlier + 1 year history of dysphagia to solids, recommended softer diet texture and MBS. Pt/family in agreement. - ELECTROMEDICAL EQUIPMENT REPAIRER Evaluation Clinical Impression ELECTROMEDICAL EQUIPMENT REPAIRER Swallowing Diagnosis -- R/O pharyngeal dysphagia;esophageal dysphagia - Functional Impact -- risk of aspiration/pneumonia - Rehab Potential/Prognosis, Swallowing -- good, to achieve stated therapy goals - Swallow Criteria for Skilled Therapeutic Interventions Met -- demonstrates skilled criteria - Recommendations ELECTROMEDICAL EQUIPMENT REPAIRER Diet Recommendation -- soft to chew textures;chopped;thin liquids extra sauce/gravy - Recommended Diagnostics -- VFSS (MBS);with esophageal screen - Recommended Precautions and Strategies -- upright posture during/after eating;general aspiration precautions;reflux precautions - Oral Care Recommendations -- Oral Care BID/PRN;Toothbrush - ELECTROMEDICAL EQUIPMENT REPAIRER Rec. for Method of Medication Administration -- as tolerated - Monitor for Signs of Aspiration -- yes;notify ELECTROMEDICAL EQUIPMENT REPAIRER if any concerns - Anticipated Discharge Disposition (ELECTROMEDICAL EQUIPMENT REPAIRER) -- inpatient rehabilitation facility - User Don (r) = Recorded By, (t) = Taken By, (c) = Cosigned By Initials Name Effective Dates Corrine Brito MS [facility]-ELECTROMEDICAL EQUIPMENT REPAIRER 09/07/22 - EDUCATION The patient has been educated in the following areas: Dysphagia (Swallowing Impairment) Modified Diet Instruction. ELECTROMEDICAL EQUIPMENT REPAIRER GOALS Row Name 07/18/25 1500 Patient will demonstrate functional cognitive-linguistic skills for return to discharge environment [place] with minimal cues - Time frame 2 weeks - ELECTROMEDICAL EQUIPMENT REPAIRER Diagnostic Treatment Patient will participate in further assessment in the following areas reading comprehension;graphicexpression - Time Frame (Diagnostic) 1 week -AC Attention Goal 1 (ELECTROMEDICAL EQUIPMENT REPAIRER) Improve Attention by Goal 1 (ELECTROMEDICAL EQUIPMENT REPAIRER) complete sustained attention task;90%;independently (over 90% accuracy) -AC Time Frame (Attention Goal 1, ELECTROMEDICAL EQUIPMENT REPAIRER) 1 week -AC Memory Skills Goal 1 (ELECTROMEDICAL EQUIPMENT REPAIRER) Improve Memory Skills Through Goal 1 (ELECTROMEDICAL EQUIPMENT REPAIRER) recalling unrelated word lists immediately;100%;with minimal cues (75-90%) - Time Frame (Memory Skills Goal 1, ELECTROMEDICAL EQUIPMENT REPAIRER) 1 week -AC Organizational Skills Goal 1 (ELECTROMEDICAL EQUIPMENT REPAIRER) Improve Thought Organization Through Goal 1 (ELECTROMEDICAL EQUIPMENT REPAIRER) completing a divergent naming task;concrete;completing a convergent naming task;abstract;80%;with minimal cues (75-90%) - Time Frame (Thought Organization Skills Goal 1, ELECTROMEDICAL EQUIPMENT REPAIRER) 1 week -AC Reasoning Goal 1 (ELECTROMEDICAL EQUIPMENT REPAIRER) Improve Reasoning Through Goal 1 (ELECTROMEDICAL EQUIPMENT REPAIRER) complete mental flexibility task;80%;with minimal cues (75-90%) -AC Time Frame (Reasoning Goal 1, ELECTROMEDICAL EQUIPMENT REPAIRER) 1 week -AC User Don (r) = Recorded By, (t) = Taken By, (c) = Cosigned By Initials Name Provider Type Corrine Baltazar MS CCC-ELECTROMEDICAL EQUIPMENT REPAIRER Speech and Language Pathologist Time Calculation: Time Calculation- ELECTROMEDICAL EQUIPMENT REPAIRER Row Name 07/18/25 1610 Time Calculation- ELECTROMEDICAL EQUIPMENT REPAIRER ELECTROMEDICAL EQUIPMENT REPAIRER Start Time 1445 -AC ELECTROMEDICAL EQUIPMENT REPAIRER Received On 07/18/25 -AC Untimed Charges 09719-SP Eval Speech and Production w/ Language Minutes 30 -AC 45719-ZO Eval Oral Pharyng Swallow Minutes 45 -AC Total Minutes Untimed Charges Total Minutes 75 -AC Total Minutes 75 -AC User Don (r) = Recorded By, (t) = Taken By, (c) = Cosigned By Initials Name Provider Type AC Corrine Brito MS CCC-ELECTROMEDICAL EQUIPMENT REPAIRER Speech and Language Pathologist Therapy Charges for Today Code Description Service Date Service Provider Modifiers Qty [id number] HC ST EVAL ORAL PHARYNG SWALLOW 3 07/18/2025 Corrine Brito MS CCC- ELECTROMEDICAL EQUIPMENT REPAIRER GN [id number] EVAL SPEECH AND PROD W LANG 2 07/18/2025 Corrine Brito MS CCC-ELECTROMEDICAL EQUIPMENT REPAIRER GN 1 Corrine Brito MS CCC-ELECTROMEDICAL EQUIPMENT REPAIRER 07/18/2025 and Acute Care - Speech Language Pathology Initial Evaluation [facility] Patient Name: Eliel Spence : 1955 Today's Date: 07/18/2025 Admit Date: 07/18/2025 Visit Dx: ICD-10-CM ICD-9-CM 1. Ischemic stroke of frontal lobe I63.9 434.91 2. Dysphagia, unspecified type R13.10 787.20 3. Cognitive communication disorder R41.841 315.32 Patient Active Problem List Diagnosis Ischemic stroke of frontal lobe Dysphagia Dental abscess Type 2 diabetes mellitus with hyperglycemia Mixed hyperlipidemia Sinus tachycardia Elevated blood pressure reading History reviewed. No pertinent past medical history. History reviewed. No pertinent surgical history. ELECTROMEDICAL EQUIPMENT REPAIRER Recommendation and Plan Recommended discharge disposition is based on the functional assessment performed by PT/OT/Speech therapy (as applicable) and may not reflect the medical necessity determined by your provider or services covered by an individual patient's insurance plan or patient resource. ELECTROMEDICAL EQUIPMENT REPAIRER Diagnosis: mild-moderate, cognitive-linguistic disorder (07/18/251499) Monitor for Signs of Aspiration: yes, notify ELECTROMEDICAL EQUIPMENT REPAIRER if any concerns (07/18/251444) Swallow Criteria for Skilled Therapeutic Interventions Met: demonstrates skilled criteria (445) SLC Criteria for Skilled Therapy Interventions Met: yes (07/18/251499) Anticipated Discharge Disposition (ELECTROMEDICAL EQUIPMENT REPAIRER): inpatient rehabilitation facility (07/18/251499) Therapy Frequency (ELECTROMEDICAL EQUIPMENT REPAIRER SLC): 5 days per week (07/18/251499) Predicted Duration Therapy Intervention (Days): 2 weeks (07/18/251499) Oral Care Recommendations: Oral Care BID/PRN, Toothbrush (07/18/251444) ELECTROMEDICAL EQUIPMENT REPAIRER EVALUATION (Last 72 Hours) ELECTROMEDICAL EQUIPMENT REPAIRER SLC Evaluation Row Name 07/18/251499 General Information Patient Level of Education 11th grade. 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 -AC Prior Level of Function-Communication WFL -AC Plans/Goals Discussed with patient and family;agreed upon -AC Barriers to Rehab none identified -AC Patient's Goals for Discharge patient did not state -AC Family Goals for Discharge family did not state -AC Pain Pretreatment Pain Rating 0/10 - no pain -AC Posttreatment Pain Rating 0/10 - no pain -AC Comprehension Assessment/Intervention Comprehension Assessment/Intervention Auditory Comprehension -AC Auditory Comprehension Assessment/Intervention Auditory Comprehension (Communication) WFL -AC Answers Questions (Communication) WFL;complex;yes/no -AC Able to Follow Commands (Communication) WFL;2-step -AC Narrative Discourse WFL;conversational level -AC Expression Assessment/Intervention Expression Assessment/Intervention verbal expression -AC Verbal Expression Assessment/Intervention Verbal Expression WFL -AC Automatic Speech (Communication) WFL;response to greeting -AC Repetition WFL;words -AC Responsive Naming WFL;simple -AC Confrontational Naming WFL;high frequency -AC Conversational Discourse/Fluency WFL -AC Motor Speech Assessment/Intervention Motor Speech Function WFL;unfamiliar listener -AC Conversational Speech (Communication) WFL;simple -AC Speech intelligibility 100%;in quiet environment;in connected speech;with unfamiliar listener -AC Cursory Voice Assessment/Intervention Quality and Resonance (Voice) WFL -AC Cognitive Assessment Intervention- ELECTROMEDICAL EQUIPMENT REPAIRER Cognitive Function (Cognition) mild impairment;moderate impairment -AC Orientation Status (Cognition) WFL;person;place;time;situation -AC Memory (Cognitive) mild impairment;short-term;immediate;unrelated 4/5 words -AC Attention (Cognitive) mild impairment;sustained -AC Thought Organization (Cognitive) moderate impairment;concrete divergent;abstract convergent -AC Reasoning (Cognitive) mild impairment;moderate impairment;mental flexibility -AC Problem Solving (Cognitive) WFL;temporal -AC Functional Math (Cognitive) WFL;money calculation -AC ELECTROMEDICAL EQUIPMENT REPAIRER Evaluation Clinical Impressions ELECTROMEDICAL EQUIPMENT REPAIRER Diagnosis mild-moderate;cognitive-linguistic disorder -AC Rehab Potential/Prognosis good -AC SLC Criteria for Skilled Therapy Interventions Met yes -AC Functional Impact Poor Judgement;difficulty completing home management task -AC Recommendations Therapy Frequency (ELECTROMEDICAL EQUIPMENT REPAIRER SLC) 5 days per week -AC Predicted Duration Therapy Intervention (Days) 2 weeks -AC Anticipated Discharge Disposition (ELECTROMEDICAL EQUIPMENT REPAIRER) inpatient rehabilitation facility - User Don (r) = Recorded By, (t) = Taken By, (c) = Cosigned By Initials Name Effective Dates Corrine Brito MS CCC-ELECTROMEDICAL EQUIPMENT REPAIRER 09/07/22 - EDUCATION The patient has been educated in the following areas: Cognitive Impairment. ELECTROMEDICAL EQUIPMENT REPAIRER GOALS Row Name 07/18/25 1500 Patient will demonstrate functional cognitive-linguistic skills for return to discharge environment [place] with minimal cues -AC Time frame 2 weeks -AC ELECTROMEDICAL EQUIPMENT REPAIRER Diagnostic Treatment Patient will participate in further assessment in the following areas reading comprehension;graphicexpression -AC Time Frame (Diagnostic) 1 week -AC Attention Goal 1 (ELECTROMEDICAL EQUIPMENT REPAIRER) Improve Attention by Goal 1 (ELECTROMEDICAL EQUIPMENT REPAIRER) complete sustained attention task;90%;independently (over 90% accuracy) -AC Time Frame (Attention Goal 1, ELECTROMEDICAL EQUIPMENT REPAIRER) 1 week -AC Memory Skills Goal 1 (ELECTROMEDICAL EQUIPMENT REPAIRER) Improve Memory Skills Through Goal 1 (ELECTROMEDICAL EQUIPMENT REPAIRER) recalling unrelated word lists immediately;100%;with minimal cues (75-90%) -AC Time Frame (Memory Skills Goal 1, ELECTROMEDICAL EQUIPMENT REPAIRER) 1 week -AC Organizational Skills Goal 1 (ELECTROMEDICAL EQUIPMENT REPAIRER) Improve Thought Organization Through Goal 1 (ELECTROMEDICAL EQUIPMENT REPAIRER) completing a divergent naming task;concrete;completing a convergent naming task;abstract;80%;with minimal cues (75-90%) -AC Time Frame (Thought Organization Skills Goal 1, ELECTROMEDICAL EQUIPMENT REPAIRER) 1 week -AC Reasoning Goal 1 (ELECTROMEDICAL EQUIPMENT REPAIRER) Improve Reasoning Through Goal 1 (ELECTROMEDICAL EQUIPMENT REPAIRER) complete mental flexibility task;80%;with minimal cues (75-90%) -AC Time Frame (Reasoning Goal 1, ELECTROMEDICAL EQUIPMENT REPAIRER) 1 week -AC User Don (r) = Recorded By, (t) = Taken By, (c) = Cosigned By Initials Name Provider Type Corrine Baltazar MS CCC-ELECTROMEDICAL EQUIPMENT REPAIRER Speech and Language Pathologist Time Calculation: Time Calculation- ELECTROMEDICAL EQUIPMENT REPAIRER Row Name 07/18/25 1610 Time Calculation- ELECTROMEDICAL EQUIPMENT REPAIRER ELECTROMEDICAL EQUIPMENT REPAIRER Start Time 1445 -AC ELECTROMEDICAL EQUIPMENT REPAIRER Received On 07/18/25 -AC Untimed Charges 56513-OT Eval Speech and Production w/ Language Minutes 30 -AC 59174-AD Eval Oral Pharyng Swallow Minutes 45 -AC Total Minutes Untimed Charges Total Minutes 75 -AC Total Minutes 75 -AC User Don (r) = Recorded By, (t) = Taken By, (c) = Cosigned By Initials Name Provider Type Corrine Baltazar MS CCC-ELECTROMEDICAL EQUIPMENT REPAIRER Speech and Language Pathologist Therapy Charges for Today Code Description Service Date Service Provider Modifiers Qty [id number] HC ST EVAL ORAL PHARYNG SWALLOW 3 07/18/2025 Corrine Brito MS CCC- ELECTROMEDICAL EQUIPMENT REPAIRER GN [id number] EVAL SPEECH AND PROD W LANG 2 07/18/2025 Corrine Brito MS CCC-ELECTROMEDICAL EQUIPMENT REPAIRER GN 1 Corrine Brito MS CCC-ELECTROMEDICAL EQUIPMENT REPAIRER 07/18/2025 * Therapy Evaluation - Kaylee London, PT - 07/18/2025 11:10 AM EST Images from the original note were not included. Patient Name: Eliel Spence : 1955 Today's Date: 07/18/2025 Admit Date: 07/18/2025 Visit Dx: No diagnosis found. Patient Active Problem List Diagnosis Ischemic stroke of frontal lobe Dysphagia Dental abscess Type 2 diabetes mellitus with hyperglycemia Mixed hyperlipidemia Sinus tachycardia Elevated blood pressure reading History reviewed. No pertinent past medical history. History reviewed. No pertinent surgical history. General Information Row Name 07/18/25 7694 Physical Therapy Time and Intention Document Type evaluation -KG Mode of Treatment physical therapy -KG Row Name 07/18/25 9265 General Information Patient Profile Reviewed yes -KG Prior Level of Function independent:;all household mobility;gait;transfer;ADL's;dressing;bathing -KG Existing Precautions/Restrictions fall;other (see comments) L inattention -KG Barriers to Rehab medically complex;cognitive status;visual deficit -KG Row Name 07/18/25 142 Living Environment Current Living Arrangements home -KG People in Home spouse -KG Row Name 07/18/25 142 Home Main Entrance Number of Stairs, Main Entrance one -KG Stair Railings, Main Entrance none -KG Row Name 07/18/25 142 Stairs Within Home, Primary Number of Stairs, Within Home, Primary none -KG Row Name 07/18/25 142 Cognition Orientation Status (Cognition) oriented x 3 -KG Row Name 07/18/25 142 Safety Issues/Impairments Affecting Functional Mobility Safety Issues Affecting Function (Mobility) awareness of need for assistance;insight into deficits/self-awareness;safety precaution awareness;safety precautions follow-through/compliance -KG Impairments Affecting Function (Mobility) balance;coordination;endurance/activity tolerance;postural/trunk control;strength;visual/perceptual -KG User Don (r) = Recorded By, (t) = Taken By, (c) = Cosigned By Initials Name Provider Type KG Kaylee London, PT Physical Therapist Mobility Row Name 07/18/251425 Bed Mobility Bed Mobility supine-sit;sit-supine -KG Supine-Sit [place] (Bed Mobility) contact guard;verbal cues -KG Sit-Supine [place] (Bed Mobility) standby assist;verbal cues -KG Assistive Device (Bed Mobility) head of bed elevated -KG Comment, (Bed Mobility) VC's for sequencing and technique. Pt did not require any physical assistance. Increased time and effort required to complete. -KG Row Name 07/18/251425 Transfers Comment, (Transfers) VC's for sequencing and safe hand placement. -KG Row Name 07/18/251425 Sit-Stand Transfer Sit-Stand [place] (Transfers) contact guard;verbal cues -KG Row Name 07/18/251425 Gait/Stairs (Locomotion) [place] Level (Gait) contact guard;verbal cues -KG Distance in Feet (Gait) 150 -KG Deviations/Abnormal Patterns (Gait) sumaya decreased;stride length decreased -KG Bilateral Gait Deviations forward flexed posture -KG Comment, (Gait/Stairs) Pt demonstrated step through gait pattern with slow sumaya and decreased step length. Pt demonstrated adequate stability with no LOB. Denied any c/o pain or weakness. -KG User Don (r) = Recorded By, (t) = Taken By, (c) = Cosigned By Initials Name Provider Type Kaylee Forde PT Physical Therapist Obj/Interventions Row Name 07/18/25 1428 Range of Motion Comprehensive General Range of Motion no range of motion deficits identified -KG Comment, General Range of Motion B LE WFL -KG Row Name 07/18/25 1428 Strength Comprehensive (MMT) Comment, General Manual Muscle Testing (MMT) Assessment B LE grossly 4-/5 -KG Row Name 07/18/25 1428 Balance Balance Assessment sitting static balance;standing static balance;standing dynamic balance -KG Static Sitting Balance standby assist -KG Position, Sitting Balance unsupported;sitting edge of bed -KG Static Standing Balance contact guard -KG Dynamic Standing Balance contact guard -KG Position/Device Used, Standing Balance unsupported -KG Row Name 07/18/25 1428 Sensory Assessment (Somatosensory) Sensory Assessment (Somatosensory) LE sensation intact -KG User Don (r) = Recorded By, (t) = Taken By, (c) = Cosigned By Initials Name Provider Type KG Kaylee London PT Physical Therapist Goals/Plan Row Name 07/18/25 143 Bed Mobility Goal 1 (PT) Activity/Assistive Device (Bed Mobility Goal 1, PT) sit to supine;supine to sit -KG [place] Level/Cues Needed (Bed Mobility Goal 1, PT) independent -KG Time Frame (Bed Mobility Goal 1, PT) short term goal (STG);5 days -KG Progress/Outcomes (Bed Mobility Goal 1, PT) goal ongoing -KG Row Name 07/18/25 143 Transfer Goal 1 (PT) Activity/Assistive Device (Transfer Goal 1, PT) jkj-ty-gqtsb/csdal-lq-ikk;zxz-ya-ztcra/ebeby-pc-gyl-KG [place] Level/Cues Needed (Transfer Goal 1, PT) independent -KG Time Frame (Transfer Goal 1, PT) custodial goal (LTG);10 days -KG Progress/Outcome (Transfer Goal 1, PT) goal ongoing -KG Row Name 07/18/25 143 Gait Training Goal 1 (PT) Activity/Assistive Device (Gait Training Goal 1, PT) gait (walking locomotion);assistive device use-KG [place] Level (Gait Training Goal 1, PT) independent -KG Distance (Gait Training Goal 1, PT) 400 feet -KG Time Frame (Gait Training Goal 1, PT) custodial goal (LTG);10 days -KG Progress/Outcome (Gait Training Goal 1, PT) goal ongoing -KG Row Name 07/18/25 1431 Stairs Goal 1 (PT) Activity/Assistive Device (Stairs Goal 1, PT) ascending stairs;descending stairs;qvrx-mw-nktk -KG [place] Level/Cues Needed (Stairs Goal 1, PT) standby assist -KG Number of Stairs (Stairs Goal 1, PT) 1 -KG Time Frame (Stairs Goal 1, PT) buttermaker goal (LTG);10 days -KG Progress/Outcome (Stairs Goal 1, PT) goal ongoing -KG Row Name 07/18/25 1431 Therapy Assessment/Plan (PT) Planned Therapy Interventions (PT) balance training;bed mobility training;gait training;stair training;strengthening;transfer training -KG User Don (r) = Recorded By, (t) = Taken By, (c) = Cosigned By Initials Name Provider Type KG Kaylee London, PT Physical Therapist Clinical Impression Row Name 07/18/25 1428 Pain Pretreatment Pain Rating 0/10 - no pain -KG Posttreatment Pain Rating 0/10 - no pain -KG Row Name 07/18/25 1428 Plan of Care Review Plan of Care Reviewed With patient -KG Outcome Evaluation PT initial evaluation completed for pt presenting with generalized weakness, mild balance deficits, and decreased functional mobility. Pt ambulated 150ft with CGA. Pt's decreased independence warrants regulated program manager care. Recommend D/C home with assistance and OP OT/PT services. -KG Row Name 07/18/25 1428 Therapy Assessment/Plan (PT) Patient/Family Therapy Goals Statement (PT) return to PLOF -KG Rehab Potential (PT) good -KG Criteria for Skilled Interventions Met (PT) yes;skilled treatment is necessary -KG Therapy Frequency (PT) daily -KG Predicted Duration of Therapy Intervention (PT) 10 days -KG Row Name 07/18/25 1428 Vital Signs Pre Systolic BP Rehab 136 -KG Pre Treatment Diastolic BP 82 -KG Post Systolic BP Rehab 139 -KG Post Treatment Diastolic BP 86 -KG Pretreatment Heart Rate (beats/min) 99 -KG Posttreatment Heart Rate (beats/min) 103 -KG Pre SpO2 (%) 98 -KG O2 Delivery Pre Treatment room air -KG Post SpO2 (%) 97 -KG O2 Delivery Post Treatment room air -KG Pre Patient Position Supine -KG Intra Patient Position Standing -KG Post Patient Position Supine -KG Row Name 07/18/25 1428 Positioning and Restraints Pre-Treatment Position in bed -KG Post Treatment Position bed -KG In Bed notified nsg;supine;call light within reach;encouraged to call for assist;exit alarm on;withfamily/caregiver;side rails up x2 -KG User Don (r) = Recorded By, (t) = Taken By, (c) = Cosigned By Initials Name Provider Type Kaylee Forde, PT Physical Therapist Outcome Measures Row Name 07/18/25 14307/18/25 0926 How much help from another person do you currently need... Turning from your back to your side while in flat bed without using bedrails? 3 -KG 4 -DC Moving from lying on back to sitting on the side of a flat bed without bedrails? 3 -KG 4 -DC Moving to and from a bed to a chair (including a wheelchair)? 3 -KG 3 -DC Standing up from a chair using your arms (e.g., wheelchair, bedside chair)? 3 - KG 3 -DC Climbing 3-5 steps with a railing? 2 -KG 3 -DC To walk in hospital room? 3 -KG 3 -DC AM-PAC 6 Clicks Score (PT) 17 -KG 20 -DC Highest Level of Mobility Goal Stand (1 or More Minutes)-5 -KG Walk 10 Steps or More-6 -DC Row Name 07/18/25 1431 07/18/25 1344 Modified Kevin Scale Pre-Stroke Modified Kevin Scale 6 - Unable to determine (UTD) from the medical record documentation -KG 0 - No Symptoms at all. -CS Modified Kevin Scale 3 - Moderate disability. Requiring some help, but able to walk without assistance. -KG 3 - Moderate disability. Requiring some help, but able to walk without assistance. -CS Row Name 07/18/25 1431 07/18/25 1344 Functional Assessment Outcome Measure Options AM-PAC 6 Clicks Basic Mobility (PT);Modified [place] -KG AM-PAC 6 Clicks Daily Activity (OT);Modified Kevin -CS User Don (r) = Recorded By, (t) = Taken By, (c) = Cosigned By Initials Name Provider Type CS Valencia Borjas, OT Occupational Therapist KG Kaylee London, PT Physical Therapist Aliyah Mosley, RN Registered Nurse Physical Therapy Education Title: PT OT ELECTROMEDICAL EQUIPMENT REPAIRER Therapies (In Progress) Topic: Physical Therapy (In Progress) Point: Mobility training (In Progress) Learning Progress Summary Patient Acceptance, E, NR by KG at 07/18/2025 1110 Point: Home exercise program (Not Started) Learner Progress: Not documented in this visit. Point: Body mechanics (In Progress) Learning Progress Summary Patient Acceptance, E, NR by KG at 07/18/2025 111 Point: Precautions (In Progress) Learning Progress Summary Patient Acceptance, E, NR by KG at 07/18/2025 1110 User Don Initials Effective Dates Name Provider Type Discipline KG 12/25/19 - Kaylee London, PT Physical Therapist PT PT Recommendation and Plan Recommended discharge disposition is based on the functional assessment performed by PT/OT/Speech therapy (as applicable) and may not reflect the medical necessity determined by your provider or services covered by an individual patient's insurance plan or patient resource. Planned Therapy Interventions (PT): balance training, bed mobility training, gait training, stair training, strengthening, transfer training Therapy Frequency (PT): daily Outcome Evaluation: PT initial evaluation completed for pt presenting with generalized weakness, mild balance deficits, and decreased functional mobility. Pt ambulated 150ft with CGA. Pt's decreased independence warrants regulated program manager care. Recommend D/C home with assistance and OP OT/PT services. Time Calculation: PT Evaluation Complexity History, PT Evaluation Complexity: 3 or more personal factors and/or comorbidities Examination of Body Systems (PT Eval Complexity): total of 3 or more elements Clinical Presentation (PT Evaluation Complexity): evolving Clinical Decision Making (PT Evaluation Complexity): moderate complexity Overall Complexity (PT Evaluation Complexity): moderate complexity PT Charges Row Name 07/18/25 111 Time Calculation Start Time 1110 -KG PT Received On 07/18/25 - PT Goal Re-Cert Due Date 07/28/25 -KG Untimed Charges PT Eval/Re-eval Minutes 63 -KG Total Minutes Untimed Charges Total Minutes 63 -KG Total Minutes 63 -KG User Don (r) = Recorded By, (t) = Taken By, (c) = Cosigned By Initials Name Provider Type Kaylee Forde, PT Physical Therapist Therapy Charges for Today Code Description Service Date Service Provider Modifiers Qty [id number] HC-PT EVAL MOD COMPLEXITY 5 07/18/2025 Kaylee London, PT 1 PT G-Codes Outcome Measure Options: AM-PAC 6 Clicks Basic Mobility (PT), Modified [place] AM-PAC 6 Clicks Score (PT): 17 AM-PAC 6 Clicks Score (OT): 20 Modified Kevin Scale: 3 - Moderate disability. Requiring some help, but able to walk without assistance. PT Discharge Summary Anticipated Discharge Disposition (PT): home with assist, home with outpatient therapy services Ena London, PT 07/18/2025 * Therapy Evaluation - Valencia Borjas, OT - 07/18/2025 11:07 AM EST Images from the original note were not included. Patient Name: Eliel Spence : 1955 Today's Date: 07/18/2025 Admit Date: 07/18/2025 Visit Dx: No diagnosis found. Patient Active Problem List Diagnosis Ischemic stroke of frontal lobe Dysphagia Dental abscess Type 2 diabetes mellitus with hyperglycemia Mixed hyperlipidemia Sinus tachycardia Elevated blood pressure reading History reviewed. No pertinent past medical history. History reviewed. No pertinent surgical history. General Information Row Name 07/18/25 1328 OT Time and Intention Document Type evaluation -CS Mode of Treatment occupational therapy -CS Row Name 07/18/25 1320 General Information Patient Profile Reviewed yes -CS Prior Level of Function independent:;all household mobility;ADL's -CS Existing Precautions/Restrictions fall;other (see comments) L inattention -CS Barriers to Rehab medically complex;cognitive status -CS Row Name 07/18/25 1327 Living Environment Current Living Arrangements home -CS People in Home spouse -CS Row Name 07/18/25 1328 Home Main Entrance Number of Stairs, Main Entrance one - Row Name 07/18/25 1328 Stairs Within Home, Primary Number of Stairs, Within Home, Primary none - Row Name 07/18/25 1328 Cognition Orientation Status (Cognition) oriented x 3 - Row Name 07/18/25 1328 Safety Issues/Impairments Affecting Functional Mobility Impairments Affecting Function (Mobility) balance;endurance/activity tolerance;strength - User Don (r) = Recorded By, (t) = Taken By, (c) = Cosigned By Initials Name Provider Type Valencia Clinton OT Occupational Therapist Mobility/ADL's Row Name 07/18/25 1338 Bed Mobility Bed Mobility sit-supine - Sit-Supine [place] (Bed Mobility) standby assist;verbal cues - Assistive Device (Bed Mobility) head of bed elevated - Row Name 07/18/25 1338 Transfers Transfers sit-stand transfer;stand-sit transfer - Row Name 07/18/25 1338 Sit-Stand Transfer Sit-Stand [place] (Transfers) contact guard;verbal cues - Row Name 07/18/25 1338 Stand-Sit Transfer Stand-Sit [place] (Transfers) contact guard;verbal cues - Row Name 07/18/25 1338 Functional Mobility Functional Mobility- Ind. Level contact guard assist;verbal cues required - Functional Mobility-Distance (Feet) -- >functional household distance - Row Name 07/18/25 1338 Activities of Daily Living BADL Assessment/Intervention lower body dressing;grooming - Row Name 07/18/25 133 Lower Body Dressing Assessment/Training [place] Level (Lower Body Dressing) socks;supervision - Position (Lower Body Dressing) edge of bed sitting - Comment, (Lower Body Dressing) adjustment - Row Name 07/18/25 1338 Grooming Assessment/Training [place] Level (Grooming) wash face, hands;supervision -CS Position (Grooming) edge of bed sitting -CS User Don (r) = Recorded By, (t) = Taken By, (c) = Cosigned By Initials Name Provider Type Valencia Clinton OT Occupational Therapist Obj/Interventions Row Name 07/18/25 1340 Sensory Assessment (Somatosensory) Sensory Assessment (Somatosensory) UE sensation intact - Row Name 07/18/25 1340 Vision Assessment/Intervention Visual Processing Deficit visual attention, left - Row Name 07/18/25 1340 Range of Motion Comprehensive General Range of Motion bilateral upper extremity ROM WFL -CS Row Name 07/18/25 1340 Strength Comprehensive (MMT) Comment, General Manual Muscle Testing (MMT) Assessment BUE grossly WFL -CS Row Name 07/18/25 1340 Motor Skills Motor Skills coordination -CS Coordination bilateral;upper extremity;finger to nose;WFL -CS Row Name 07/18/25 1340 Balance Balance Assessment sitting static balance;sitting dynamic balance;standing static balance;standing dynamic balance -CS Static Sitting Balance standby assist -CS Dynamic Sitting Balance standby assist -CS Position, Sitting Balance sitting edge of bed -CS Static Standing Balance standby assist -CS Dynamic Standing Balance contact guard -CS Position/Device Used, Standing Balance unsupported -CS Balance Interventions sitting;standing;static;dynamic;dynamic reaching;weight shifting activity;occupation based/functional task -CS User Don (r) = Recorded By, (t) = Taken By, (c) = Cosigned By Initials Name Provider Type CS Valencia Borjas, OT Occupational Therapist Goals/Plan Row Name 07/18/25 134 Transfer Goal 1 (OT) Activity/Assistive Device (Transfer Goal 1, OT) [id number];toilet -CS [place] Level/Cues Needed (Transfer Goal 1, OT) standby assist -CS Time Frame (Transfer Goal 1, OT) custodial goal (LTG);10 days -CS Progress/Outcome (Transfer Goal 1, OT) goal ongoing - Row Name 07/18/25 134 Dressing Goal 1 (OT) Activity/Device (Dressing Goal 1, OT) lower body dressing -CS [place]/Cues Needed (Dressing Goal 1, OT) standby assist -CS Time Frame (Dressing Goal 1, OT) custodial goal (LTG);10 days -CS Strategies/Barriers (Dressing Goal 1, OT) don pants -CS Progress/Outcome (Dressing Goal 1, OT) goal ongoing - Row Name 07/18/25 134 Toileting Goal 1 (OT) Activity/Device (Toileting Goal 1, OT) adjust/manage clothing;perform perineal hygiene -CS [place] Level/Cues Needed (Toileting Goal 1, OT) standby assist -CS Time Frame (Toileting Goal 1, OT) short term goal (STG);5 days -CS Progress/Outcome (Toileting Goal 1, OT) goal ongoing -CS Row Name 07/18/25 1343 Therapy Assessment/Plan (OT) Planned Therapy Interventions (OT) activity tolerance training;adaptive equipment training;BADL retraining;functional balance retraining;orthotic fabrication/fitting/training;transfer/mobility retraining;occupation/activity based interventions;cognitive/visual perception retraining;neuromuscular con trol/coordination retraining;ROM/therapeutic exercise -CS User Don (r) = Recorded By, (t) = Taken By, (c) = Cosigned By Initials Name Provider Type CS Valencia Borjas, FAHAD Occupational Therapist Clinical Impression Row Name 07/18/25 1341 Pain Assessment Pretreatment Pain Rating 0/10 - no pain -CS Posttreatment Pain Rating 0/10 - no pain -CS Row Name 07/18/25 1341 Plan of Care Review Plan of Care Reviewed With patient -CS Progress improving -CS Outcome Evaluation OT eval complete. Pt presents w/ c/o significant fatigue, mild balance deficits,and mild cogntive deficits warranting cont skilled IPOT POC to promote return to PLOF. Recommend ptDC home w/ assist and OP OT/PT services based on current level of performance. -CS Row Name 07/18/25 1341 Therapy Assessment/Plan (OT) Patient/Family Therapy Goal Statement (OT) Return to PLOF -CS Rehab Potential (OT) good -CS Criteria for Skilled Therapeutic Interventions Met (OT) yes;skilled treatment is necessary -CS Therapy Frequency (OT) daily -CS Predicted Duration of Therapy Intervention (OT) 10 days -CS Row Name 07/18/25 1341 Therapy Plan Review/Discharge Plan (OT) Anticipated Discharge Disposition (OT) home with assist;home with outpatient therapy services -CS Row Name 07/18/25 1341 Vital Signs Pre Systolic BP Rehab 136 -CS Pre Treatment Diastolic BP 82 -CS Post Systolic BP Rehab 136 -CS Post Treatment Diastolic BP 86 -CS Pretreatment Heart Rate (beats/min) 101 -CS Posttreatment Heart Rate (beats/min) 100 -CS Pre SpO2 (%) 96 -CS O2 Delivery Pre Treatment room air -CS Post SpO2 (%) 97 -CS O2 Delivery Post Treatment room air -CS Pre Patient Position Supine -CS Intra Patient Position Standing -CS Post Patient Position Supine -CS Row Name 07/18/25 1341 Positioning and Restraints Pre-Treatment Position in bed -CS Post Treatment Position bed -CS In Bed notified nsg;fowlers;encouraged to call for assist;exit alarm on;patient within staff view;call light within reach;with family/caregiver -CS User Don (r) = Recorded By, (t) = Taken By, (c) = Cosigned By Initials Name Provider Type CS Valencia Borjas OT Occupational Therapist Outcome Measures Row Name 07/18/25 1344 How much help from another is currently needed... Putting on and taking off regular lower body clothing? 3 -CS Bathing (including washing, rinsing, and drying) 3 -CS Toileting (which includes using toilet bed wolf or urinal) 3 -CS Putting on and taking off regular upper body clothing 3 -CS Taking care of personal grooming (such as brushing teeth) 4 -CS Eating meals 4 -CS AM-PAC 6 Clicks Score (OT) 20 -CS Row Name 07/18/25 0926 07/18/25 0218 How much help from another person do you currently need... Turning from your back to your side while in flat bed without using bedrails? 4 -DC 3 -AK Moving from lying on back to sitting on the side of a flat bed without bedrails? 4 -DC 3 -AK Moving to and from a bed to a chair (including a wheelchair)? 3 -DC 3 -AK Standing up from a chair using your arms (e.g., wheelchair, bedside chair)? 3 - DC 3 -AK Climbing 3-5 steps with a railing? 3 -DC 3 -AK To walk in hospital room? 3 -DC 3 -AK AM-PAC 6 Clicks Score (PT) 20 -DC 18 -AK Row Name 07/18/25 1344 Modified Kevin Scale Pre-Stroke Modified [place] Scale 0 - No Symptoms at all. -CS Modified [place] Scale 3 - Moderate disability. Requiring some help, but able to walk without assistance. -CS Row Name 07/18/25 1340 Functional Assessment Outcome Measure Options AM-PAC 6 Clicks Daily Activity (OT);Modified [place] -CS User Don (r) = Recorded By, (t) = Taken By, (c) = Cosigned By Initials Name Provider Type CS Valencia Borjas, FAHAD Occupational Therapist Sadie Askew RN Registered Nurse DC Tommie, Aliyah, RN Registered Nurse Occupational Therapy Education Title: PT OT ELECTROM[employer] EQUIPMENT REPAIRER Therapies (In Progress) Topic: Occupational Therapy (In Progress) Point: ADL training (In Progress) Learning Progress Summary Patient Acceptance, E, NR by CS at 07/18/2025 1345 Point: Precautions (In Progress) Learning Progress Summary Patient Acceptance, E, NR by CS at 07/18/2025 1345 Point: Body mechanics (In Progress) Learning Progress Summary Patient Acceptance, E, NR by CS at 07/18/2025 1345 User Don Initials Effective Dates Name Provider Type Discipline 04/06/21 - Valencia Borjas, FAHAD Occupational Therapist OT OT Recommendation and Plan Recommended discharge disposition is based on the functional assessment performed by PT/OT/Speech therapy (as applicable) and may not reflect the medical necessity determined by your provider or services covered by an individual patient's insurance plan or patient resource. Planned Therapy Interventions (OT): activity tolerance training, adaptive equipment training, BADL retraining, functional balance retraining, orthotic fabrication/fitting/training, transfer/mobility retraining, occupation/activity based interventions, cognitive/visual perception retraining, neuromuscular control/coordination retraining, ROM/therapeutic exercise Therapy Frequency (OT): daily Plan of Care Review Plan of Care Reviewed With: patient Progress: improving Outcome Evaluation: OT eval complete. Pt presents w/ c/o significant fatigue, mild balance deficits, and mild cogntive deficits warranting cont skilled IPOT POC to promote return to PLOF. Recommend pt DC home w/ assist and OP OT/PT services based on current level of performance. Time Calculation: Evaluation Complexity (OT) Review Occupational Profile/Medical/Therapy History Complexity: brief/low complexity Assessment, Occupational Performance/Identification of Deficit Complexity: 3-5 performance deficits Clinical Decision Making Complexity (OT): problem focused assessment/low complexity Overall Complexity of Evaluation (OT): low complexity Time Calculation- OT Row Name 07/18/25 1345 Time Calculation- OT OT Start Time 1107 -CS OT Received On 07/18/25 -CS OT Goal Re-Cert Due Date 07/28/25 -CS Untimed Charges OT Eval/Re-eval Minutes 61 -CS Total Minutes Untimed Charges Total Minutes 61 -CS Total Minutes 61 -CS User Don (r) = Recorded By, (t) = Taken By, (c) = Cosigned By Initials Name Provider Type CS Valencia Borjas OT Occupational Therapist Therapy Charges for Today Code Description Service Date Service Provider Modifiers Qty [id number] HC-OT EVAL LOW COMPLEXITY 5 07/18/2025 Valencia Borjas OT 1 Valencia Borjas OT 07/18/2025 documented in this encounter Plan of Treatment Upcoming Encounters Date Type Department Care Team (Late st Contact Info) Description 08/16/2025 10:00 AM EST Office Visit [facility] [address] [facility] [address] [place] [phone] Valeria Jewell PA [address] [facility] [address] [place] [address] 08/19/2025 2:30 PM EST Appointment [facility] [address] [facility] [address] [place] [phone] 08/30/2025 1:30 PM EST Office Visit [facility] NEUROLOGY [address] [facility] [address] [place] [address] Daya Aguilar, VIANEY [address] [facility] [address] [place] [address] Scheduled Referrals Name Type Priority Associated Diagnoses Order Schedule Ambulatory Referral to Neurology Outpatient Referral Routine Ischemic stroke of frontal lobe Ordered: 07/19/2025 Ambulatory Referral to Physical Therapy for Evaluation & Treatment Outpatient Referral Routine Ischemic stroke of frontal lobe Ordered: 07/19/2025 Ambulatory Referral to Speech Therapy for Evaluation & Treatment Outpatient Referral Routine Ischemic stroke of frontal lobe Ordered: 07/19/2025 documented as of this encounter Procedures Procedure Name Priority Date/Time Associated Diagnosis Comments POCT GLUCOSE FINGERSTICK Routine 07/19/2025 11:05 AM EST FL LIMITED UGI FOR MBS REFLUX SINGLE-CONTRAST Routine 07/19/2025 9:53 AM EST FL VIDEO SWALLOW W SPEECH SINGLE-CONTRAST Routine 07/19/2025 9:[address] SOFT TISSUE NECK W WO CONTRAST Routine 07/19/2025 9:34 AM EST SCANNED - TELEMETRY 07/19/2025 7 :35 AM EST POCT GLUCOSE FINGERSTICK Routine 07/19/2025 7:08 AM EST POCT GLUCOSE FINGERSTICK Routine 07/18/2025 8:32 PM EST [id number] PLATELET INHIBITION Routine 07/18/2025 7:28 PM EST DUPLEX CAROTID BILATERAL CAR - PERFORMED PROCEDURE Routine 07/18/2025 5:42 PM EST POCT GLUCOSE FINGERSTICK Routine 07/18/2025 5:39 PM EST POCT GLUCOSE FINGERSTICK Routine 07/18/2025 11:35 AM EST ECHO COMPLETE W/ DOPPLER, COLOR FLOW AND CONTRAST Routine 07/18/2025 10:42 AM EST MRI BRAIN WO CONTRAST Routine 07/18/2025 9:14 AM EST URINALYSIS, MICROSCOPIC ONLY Routine 07/18/2025 8:00 AM EST URINALYSIS W/ MICROSCOPIC IF INDICATED (NO CULTURE) Routine 07/18/2025 8:00 AM EST POCT GLUCOSE FINGERSTICK Routine 07/18/2025 7:52 AM EST POCT GLUCOSE FINGERSTICK Routine 07/18/2025 6:33 AM EST LACTIC ACID, PLASMA STAT 07/18/2025 4 :54 AM EST ECG 12-LEAD Routine 07/18/2025 3:49 AM EST MAGNESIUM STAT 07/18/2025 2:51 AM EST LIPID PANEL Routine 07/18/2025 2:51 AM EST COMPREHENSIVE METABOLIC PANEL STAT 07/18/2025 2:51 AM EST CBC WITH AUTO DIFFERENTIAL STAT 07/18/2025 2:50 AM EST CBC AND DIFFERENTIAL STAT 07/18/2025 2:50 AM EST HEMOGLOBIN A1C STAT 07/18/2025 2:50 AM EST POCT GLUCOSE FINGERSTICK Routine 07/18/2025 2:40 AM EST SCANNED - IMAGING 07/18/2025 SCANNED - IMAGING 07/18/2025 documented in this encounter Results * (ABNORMAL) POC Glucose Once (07/19/2025 11:05 AM EST) Glucose 305(H) 70 - 130 mg/dL 07/19/2025 11:07 AM EST [facility] Comment:Serial Number: [id number] Blood 07/19/2025 11:0 5 AM EST 07/19/2025 11:07 AM EST us Flaca Lam MD POINT OF CARE TEST ORDERABLES Fi nal Result [facility]
[address] [place] [address], * [place] Limited Ugi For Mbs Reflux Single-Contrast (07/19/2025 9:53 AM EST) Anatomical Region Laterality Modality Body N/A Radio Fluoroscop y 07/19/2025 9:59 AM EST Impressions 07/19/2025 2:48 PM EST Impression: Fluoroscopy provided for a modified barium swallow, and limited upper GI series. No aspiration was seen during swallowing evaluation. Limited upper GI series appeared within normal limits. Please see speech therapy report for full details and recommendations. Report dictated by: Ladi Leslie PA-c I have personally reviewed this case and agree with the findings above: Electronically Signed: Uriel Ledbetter MD 07/19/2025 2:48 PM EST Workstation ID: [id number] Nikole 07/19/2025 2:48 PM EST FL VIDEO SWALLOW W SPEECH SINGLE-CONTRAST, FL LIMITED UGI FOR MBS REFLUX SINGLE-CONTRAST Date of Exam: 07/19/2025 9:37 AM EST Indication: dysphagia. Comparison: None available. Technique: The speech pathologist administered food and/or liquid mixed with barium to the patient with cine/video imaging. Imaging assistance was provided to the speech pathologist and an image was saved. Fluoroscopic Time: 42 seconds Number of Images: 10 associated fluoroscopic loops were send Findings: No aspiration was seen during fluoroscopic guided modified barium swallowing series. A limited view of the esophagus with the patient in the seated lateral position demonstrated no signs of a focal esophageal stricture, or significant gastroesophageal reflux. Please see speech therapy report for full details and recommendations. Procedure Note Uriel Ledbetter MD - 07/19/2025 FL VIDEO SWALLOW W SPEECH SINGLE-CONTRAST, FL LIMITED UGI FOR MBS REFLUXSINGLE-CONTRAST Date of Exam: 07/19/2025 9:37 AM EST Indication: dysphagia. Comparison: None available. Technique: The speech pathologist administered food and/or liquid mixedwith barium to the patient with cine/video imaging. Imaging assistancewas provided to the speech pathologist and an image was saved. Fluoroscopic Time: 42 seconds Number of Images: 10 associated fluoroscopic loops were send Findings: No aspiration was seen during fluoroscopic guided modified bariumswallowing series. A limited view of the esophagus with the patient in theseated lateral position demonstrated no signs of a focal esophagealstricture, or significant gastroesophageal reflux. Please see speech therapy report for full details andrecommendations. IMPRESSION: Impression: Fluoroscopy provided for a modified barium swallow, and limited upper GIseries. No aspiration was seen during swallowing evaluation. Limited upperGI series appeared within normal limits. Please see speech therapy reportfor full details and recommendations. Report dictated by: Ladi Leslie PA-c I have personally reviewed this case and agree with the findings above: Electronically Signed: Uriel Ledbetter MD 07/19/2025 2:48 PM EST Workstation ID: [id number] Paul Cronin MD IMG FLUOROSCOPY ORDERABLES Taylor l Result * FL Video Swallow With Speech Single Contrast (07/19/2025 9:52 AM EST) Anatomical Region Laterality Modality Head and Neck N/A Radio Fluoroscop y 07/19/2025 9:59 AM EST Impressions 07/19/2025 2:48 PM EST Impression: Fluoroscopy provided for a modified barium swallow, and limited upper GI series. No aspiration was seen during swallowing evaluation. Limited upper GI series appeared within normal limits. Please see speech therapy report for full details and recommendations. Report dictated by: Ladi Leslie PA-c I have personally reviewed this case and agree with the findings above: Electronically Signed: Uriel Ledbetter MD 07/19/2025 2:48 PM EST Workstation ID: [id number] Narrative 07/19/2025 2:48 PM EST [place] VIDEO SWALLOW W SPEECH SINGLE-CONTRAST, [place] LIMITED UGI FOR MBS REFLUX SINGLE-CONTRAST Date of Exam: 07/19/2025 9:37 AM EST Indication: dysphagia. Comparison: None available. Technique: The speech pathologist administered food and/or liquid mixed with barium to the patient with cine/video imaging. Imaging assistance was provided to the speech pathologist and an image was saved. Fluoroscopic Time: 42 seconds Number of Images: 10 associated fluoroscopic loops were send Findings: No aspiration was seen during fluoroscopic guided modified barium swallowing series. A limited view of the esophagus with the patient in the seated lateral position demonstrated no signs of a focal esophageal stricture, or significant gastroesophageal reflux. Please see speech therapy report for full details and recommendations. Procedure Note Uriel Ledbetter MD - 07/19/2025 [place] VIDEO SWALLOW W SPEECH SINGLE-CONTRAST, FL LIMITED UGI FOR MBS REFLUXSINGLE-CONTRAST Date of Exam: 07/19/2025 9:37 AM EST Indication: dysphagia. Comparison: None available. Technique: The speech pathologist administered food and/or liquid mixedwith barium to the patient with cine/video imaging. Imaging assistancewas provided to the speech pathologist and an image was saved. Fluoroscopic Time: 42 seconds Number of Images: 10 associated fluoroscopic loops were send Findings: No aspiration was seen during fluoroscopic guided modified bariumswallowing series. A limited view of the esophagus with the patient in theseated lateral position demonstrated no signs of a focal esophagealstricture, or significant gastroesophageal reflux. Please see speech therapy report for full details andrecommendations. IMPRESSION: Impression: Fluoroscopy provided for a modified barium swallow, and limited upper GIseries. No aspiration was seen during swallowing evaluation. Limited upperGI series appeared within normal limits. Please see speech therapy reportfor full details and recommendations. Report dictated by: Ladi Leslie PA-c I have personally reviewed this case and agree with the findings above: Electronically Signed: Uriel Ledbetter MD 07/19/2025 2:48 PM EST Workstation ID: [id number] Paul Cronin MD IMG FLUOROSCOPY ORDERABLES Taylor l Result * CT Soft Tissue Neck With & Without Contrast (07/19/2025 9:34 AM EST) Anatomical Region Laterality Modality Neck N/A Computed Tomogra phy 07/19/2025 9:49 AM EST Impressions 07/19/2025 9:58 AM EST Impression: Essentially normal CT of the neck soft tissues. There is subtle asymmetry of the lingual tonsils, possibly more prominent on the right and potentially accounting for appearance of a mass on outside CT angiogram. Correlation could be made with direct visualization/laryngoscopy. There is no evidence of pathologic cervical lymphadenopathy. Electronically Signed: Sandeep Rios MD 07/19/2025 9:58 AM EST Workstation ID: [id number] Narrative 07/19/2025 9:[address] SOFT TISSUE NECK W WO CONTRAST Date of Exam: 07/19/2025 9:28 AM EST Indication: eval tongue mass seen on CTA outside imaging. having dysphagia. Comparison: None available. Technique: Axial CT images were obtained of the neck before and after the uneventful intravenous administration of iodinated contrast. Reconstructed coronal and sagittal images were also obtained. Automated exposure control and iterative construction methods were used. Findings: There is subtle asymmetry of the lingual tonsils, possibly more prominent on the right and potentially accounting for appearance of a mass on outside CT angiogram. There is otherwise no evidence of suspicious aerodigestive tract lesion or other focal luminal abnormality. There is no distinct pathologic cervical lymphadenopathy. The parotid and submandibular glands appear normal. Vascular structures are patent. The lung apices are clear. The osseous structures demonstrate no evidence of acute fracture or suspicious focal osseous lesion. Procedure Note Juan Antonio Rios MD - 07/19/2025 CT SOFT TISSUE NECK W WO CONTRAST Date of Exam: 07/19/2025 9:28 AM EST Indication: eval tongue mass seen on CTA outside imaging. havingdysphagia. Comparison: None available. Technique: Axial CT images were obtained of the neck before and after theuneventful intravenous administration of iodinated contrast.Reconstructed coronal and sagittal images were also obtained. Automatedexposure control and iterative construction methods were used. Findings: There is subtle asymmetry of the lingual tonsils, possibly more prominenton the right and potentially accounting for appearance of a mass onoutside CT angiogram. There is otherwise no evidence of suspiciousaerodigestive tract lesion or other focal luminal abnormality. There is no distinct pathologic cervicallymphadenopathy. The parotid and submandibular glands appear normal.Vascular structures are patent. The lung apices are clear. The osseousstructures demonstrate no evidence of acute fracture or suspicious focal osseous lesion. IMPRESSION: Impression: Essentially normal CT of the neck soft tissues. There is subtle asymmetryof the lingual tonsils, possibly more prominent on the right andpotentially accounting for appearance of a mass on outside CT angiogram.Correlation could be made with direct visualization/laryngoscopy. There is no evidence of pathologic cervicallymphadenopathy. Electronically Signed: Sandeep Rios MD 07/19/2025 9:58 AM EST Workstation ID: [id number] Flaca Lam MD IM CT ORDERABLES Final Result * Telemetry Scan (07/19/2025 7:35 AM EST) [facility] ECG ORDERABLES Final Result * (ABNORMAL) POC Glucose Once (07/19/2025 7:08 AM EST) Glucose 212(H) 70 - 130 mg/dL 07/19/2025 7:10 AM EST [facility] Comment:Serial Number: [id number]: [id number] Blood 07/19/2025 7:08 AM EST 07/19/2025 7:10 AM EST Flaca Lam MD POINT OF CARE TEST ORDERABLES Fi nal Result Performing Organization Address City/[facility]/ZIP Co de Phone Number [facility]
[address] [place] [address], * (ABNORMAL) POC Glucose Once (07/18/2025 8:32 PM EST) Glucose 264(H) 70 - 130 mg/dL 07/18/2025 8:35 PM EST [facility] Comment:Serial Number: [id number]: [id number] Blood 07/18/2025 8:32 PM EST 07/18/2025 8:35 PM EST Paul Cronin MD POINT OF CARE TEST ORDERABLES F inal Result Performing Organization Address [facility] Co de Phone Number [facility]
[address] [place] [address], * P2Y12 Platelet Inhibition (07/18/2025 7:28 PM EST) P2Y12 Reactivity Unit 90 PRU DISK DIFFUSION 07/18/2025 8:18 PM EST [facility] Blood Venipuncture / Unknown 07/18/2025 7:28 PM EST 07/18/2025 7:58 PM EST Narrative [facility] - 07/18/2025 8:18 PM EST P2Y12 Interpretation: Pre-Drug normal reference range is 194-418 PRU. Test results are reported in P2Y12 reaction units (PRU). This measures the extent of platelet aggregation in the presence of P2Y12 inhibitor drugs, such as clopidogrel (Plavix), prasugrel (Effient), ticagrelor (Brilinta), ticlopidine (Ticlid). P2Y12 values <194 PRU (low end of reference range) are specific evidence of a P2Y12 inhibitor effect. Patients who have been treated with Glycoprotein IIb/IIIa inhibitors should not be tested until platelet function has recovered. This time period is approximately 14 days after discontinuation of abciximab (ReoPro) and up to 48 hours after discontinuation of eptifibatide (Integrilin) and tirofiban (Aggrastat). The P2Y12 test results should be interpreted in conjunction with other clinical and lab data available to the clinician. Ta Stern MD LAB BLOOD ORDERABLES Final R esult [facility]
[address] [place] [address], * DUPLEX CAROTID BILATERAL CAR - PERFORMED PROCEDURE (07/18/2025 5:42 PM EST) Prox CCA PSV 122.6 cm/sec Prox CCA EDV 1.19 cm/sec Right Mid CCA PSV 67.8 cm/sec right Mid CCA EDV 0.00 cm/sec Dist CCA PSV 66.1 cm/sec Dist CCA EDV 0.00 cm/sec Prox ICA PSV 22.9 cm/sec Prox ICA EDV 5.7 cm/sec Mid ICA PSV 28.8 cm/sec Mid ICA EDV 7.3 cm/sec Dist ICA PSV 29.7 cm/sec Dist ICA EDV 8.1 cm/sec Prox ECA PSV 185.7 cm/sec Prox ECA EDV 1.43 cm/sec Vertebral A PSV 0.00 cm/sec Vertebral A EDV 0.00 cm/sec Prox CCA PSV 100.5 cm/sec Prox CCA EDV 23.6 cm/sec left Mid CCA PSV 91.4 cm/sec left Mid CCA EDV 23.3 cm/sec Dist CCA PSV 78.4 cm/sec Dist CCA EDV 17.7 cm/sec Prox ICA PSV 86.7 cm/sec Prox ICA EDV 35.5 cm/sec Mid ICA PSV 81.4 cm/sec Mid ICA EDV 36.2 cm/sec Dist ICA PSV 85.7 cm/sec Dist ICA EDV 36.8 cm/sec Prox ECA PSV 158.1 cm/sec Prox ECA EDV 14.3 cm/sec Vertebral A PSV 30.8 cm/sec Vertebral A EDV 11.0 cm/sec Prox SCLA PSV 149.9 cm/sec Prox SCLA PSV 144.8 cm/sec Right arm BP 133/80 mmHg Left arm BP 122/79 mmHg ICA/CCA ratio 0.24 ICA/CCA ratio 0.86 Anatomical Region Laterality Modality Ultrasound Narrative 07/19/2025 8:44 AM EST Right internal carotid artery is occluded. Abnormal waveforms detected in the right carotid/ICA suggestive of a more distal occlusion. Right vertebral artery is occluded. Left internal carotid artery demonstrates a less than 50% stenosis. Antegrade left vertebral flow. No previous study available for comparison. Study Impression Right ICA: Imaging indicates occluded flow. Right Vertebral: Unable to obtain Doppler signal, which may be suggestive of occlusion. Left ICA: Imaging indicates <50% stenosis. Study Findings Right CCA Prox: No plaque visualized. Right CCA Mid: No plaque visualized. Right CCA Dist: No plaque visualized. Right Carotid Bulb: Irregular heterogeneous plaque present. Right ICA Prox: No plaque visualized. Right ICA Mid: No plaque visualized. Right ICA Dist: No plaque visualized. Right ECA: Irregular heterogeneous plaque present. Right Vertebral: Occluded vessel. Left CCA Prox: No plaque visualized. Left CCA Mid: No plaque visualized. Left CCA Dist: No plaque visualized. Left Carotid Bulb: Irregular heterogeneous plaque present. Left ICA Prox: No plaque visualized. Left ICA Mid: No plaque visualized. Left ICA Dist: No plaque visualized. Left ECA: No plaque visualized. Left Vertebral: Antegrade flow noted. No elevated velocities detected in bilateral carotid systems on today's exam. Abnormal waveforms detected in the right carotid/ICA suggestive of a more distal occlusion. No flow detected in the right mid to distal vertebral artery at this time. Antegrade flow in the left vertebral artery. No prior duplex for comparison. Additional Study Details Study performed at bedside. The study is technically adequate for diagnosis. The quality of the study is limited due to patient body habitus and patient positioning. No relevant cardiovascular history. Corrine Sahu APRN CV VASCULAR ORDERABLES Taylor owen Result * (ABNORMAL) POC Glucose Once (07/18/2025 5:39 PM EST) Glucose 258(H) 70 - 130 mg/dL 07/18/2025 5:41 PM EST [facility] Comment:Serial Number: [id number]: [id number] Blood 07/18/2025 5:39 PM EST 07/18/2025 5:41 PM EST Paul Cronin MD POINT OF CARE TEST ORDERABLES F inal Result Performing Organization Address [facility]/ZIP Co de Phone Number [facility]
[address] [place] [address], * (ABNORMAL) POC Glucose Once (07/18/2025 11:35 AM EST) Glucose 265(H) 70 - 130 mg/dL 07/18/2025 11:37 AM EST [facility] Comment:Serial Number: [id number]: [id number] Blood 07/18/2025 11:3 5 AM EST 07/18/2025 11:37 AM EST Paul Cronin MD POINT OF CARE TEST ORDERABLES F inal Result Performing Organization Address City/[facility]/ZIP Co de Phone Number [facility]
[address] [place] [address], * ECHO COMPLETE W/ DOPPLER, COLOR FLOW AND CONTRAST (07/18/2025 10:42 AM EST) EF(MOD-bp) 66.7 % LVIDd 3.8 cm LVIDs 2.8 cm IVSd 0.90 cm LVPWd 0.60 cm FS 26.3 % IVS/LVPW 1.50 cm ESV(cubed) 22.0 ml LV Sys Vol (BSA corrected) 20.7 cm2 EDV(cubed) 54.9 ml LV Noel Vol (BSA corrected) 57.9 cm2 LV mass(C)d 78.8 grams LVOT area 2.8 cm2 LVOT diam 1.90 cm EDV(MOD-sp2) 81.7 ml EDV(MOD-sp4) 109.0 ml ESV(MOD-sp2) 24.5 ml ESV(MOD-sp4) 39.0 ml SV(MOD-sp2) 57.2 ml SV(MOD-sp4) 70.0 ml SVi(MOD-SP2) 30.4 ml/m2 SVi(MOD-SP4) 37.2 ml/m2 SVi (LVOT) 21.5 ml/m2 EF(MOD-sp2) 70.0 % EF(MOD-sp4) 64.2 % MV E max zechariah 57.1 cm/sec MV A max zechariah 92.2 cm/sec MV dec time 0.07 sec MV E/A 0.62 IVRT 102.0 ms LA ESV Index (BP) 15.2 ml/m2 Med Peak E' Zechariah 5.4 cm/sec Lat Peak E' Zechariah 9.3 cm/sec Avg E/e' ratio 7.77 SV(LVOT) 40.5 ml RV Base 3.0 cm RV Mid 2.20 cm RV Length 6.1 cm TAPSE (>1.6) 2.28 cm RV S' 14.8 cm/sec LA dimension (2D) 3.0 cm LV V1 max 79.4 cm/sec LV V1 max PG 2.5 mmHg LV V1 mean PG 1.00 mmHg LV V1 VTI 14.3 cm Ao pk zechariah 112.0 cm/sec Ao max PG 5.0 mmHg Ao mean PG 3.0 mmHg Ao V2 VTI 18.1 cm AIDE(I,D) 2.24 cm2 Dimensionless Index 0.79 (DI) MV max PG 4.2 mmHg MV mean PG 2.00 mmHg MV V2 VTI 18.0 cm MVA(VTI) 2.25 cm2 MV dec slope 876.0 cm/sec2 PA V2 max 106.0 cm/sec PA acc time 0.07 sec PI end-d zechariah 107.0 cm/sec Ao root diam 3.5 cm BH CV ECHO SHUNT ASSESSMENT PERFORMED (HIDDEN SCRIPTING) 1 Anatomical Region Laterality Modality Ultrasound Narrative 07/18/2025 12:55 PM EST Left ventricular ejection fraction appears to be 66 - 70%. Normal left atrial size and volume noted. Saline test results are negative. The aortic valve exhibits sclerosis. Left Ventricle Left ventricular systolic function is normal. Calculated left ventricular EF = 66.7% Left ventricular ejection fraction appears to be 66 - 70%. Normal left ventricular cavity size and wall thickness noted. All left ventricular wall segments contract normally. Right Ventricle Normal right ventricular cavity size, wall thickness, systolic function and septal motion noted. Left Atrium Normal left atrial size and volume noted. Saline test results are negative. Right Atrium Normal right atrial cavity size noted. Mitral Valve The mitral valve is grossly normal in structure. Trace mitral valve regurgitation is present. Tricuspid Valve The tricuspid valve is structurally normal with no significant regurgitation or significant stenosis present. Aortic Valve No aortic valve regurgitation or stenosis is present. The aortic valve is abnormal in structure. The aortic valve exhibits sclerosis. Pulmonic Valve The pulmonic valve is structurally normal with no significant stenosis present. There is trace pulmonic valve regurgitation present. Pericardium The pericardium is normal. There is no evidence of pericardial effusion. . Greater Vessels No dilation of the aortic root is present. Aortic root = 3.5 cm Inferior vena cava not well visualized. Study Quality The study is technically difficult for diagnosis. The quality of the study is limited due to limited views obtained and patient body habitus with poor acoustic windows in the parasternal window, apical window and subcostal window. Normal sinus was the predominant rhythm observed during the procedure. Enhancement Agent Details Verbal consent was obtained from the patient to use Lumason image enhancer in order to optimize the study. The use of Lumason was indicated to improve delineation of the left ventricular endocardial border. 5 mL of Lumason was manually activated. A total of 2 mL of the activated Lumason was administered and the remaining contrast was wasted and discarded. No adverse reaction to image enhancer was noted. Shunt Assessment Verbal consent was obtained from the patient for use of agitated saline to assess for shunting. A total of 20 mL of agitated saline was administered. 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 Additional punctate areas of signal abnormality noted within the right parietal occipital region. 2.Mild increased T1 signal and minimal susceptibility artifact compatible with hemorrhagic staining. No overt intraparenchymal hemorrhagic transformation. 3.Abnormal flow within the right internal carotid artery. This is better seen on outside CTA. 4.Additional white matter changes compatible small vessel ischemic disease. Findings called to the broadcast traffic coordinator at the time of interpretation. Electronically Signed: Florin Anaya MD 07/18/2025 10:00 AM EST Workstation ID: [id number] Narrative 07/18/2025 10:00 AM EST MRI BRAIN WO CONTRAST Date of Exam: 07/18/2025 9:01 AM EST Indication: Stroke, follow up AMS, CTH showing right frontal infarct. Comparison: Outside CTs 07/17/2025 Technique: Routine multiplanar/multisequence sequence images of the brain were obtained without contrast administration. Findings: There is some motion limitation. Diffusion weighted imaging demonstrates moderate area of diffusion restriction abnormality in the right frontal lobe with associated dropout on the ADC map. Additional areas of punctate signal abnormality centered within the right parietal occipital region with associated dropout on the ADC map noted. Associated hypoattenuation on comparison CT noted. There is no evidence of additional acute diffusion restriction abnormality. There is associated signal abnormality on FLAIR and T2 weighted imaging compatible with a late acute or subacute age of infarction. Sulcal effacement noted in the right frontal region. Mild increased T1 signal suggest a mild degree of hemorrhagic staining. No overt intraparenchymal hemorrhagic transformation. Additional punctate areas of FLAIR and T2 signal hyperintensity within the brain parenchyma most compatible sequela of small vessel ischemic changes. Limited imaging of the major intracranial flow voids appear grossly patent within the intracranial portions. There is absent, abnormal flow within portions of the right interosseous and proximal cavernous portions. This is better seen on outside CTA. The paranasal sinuses and mastoid air cells are grossly clear. Globes and orbits are grossly unremarkable Procedure Note Florin Anaya MD - 07/18/2025 MRI BRAIN WO CONTRAST Date of Exam: 07/18/2025 9:01 AM EST Indication: Stroke, follow up AMS, CTH showing right frontal infarct. Comparison: Outside CTs 07/17/2025 Technique: Routine multiplanar/multisequence sequence images of the brainwere obtained without contrast administration. Findings: There is some motion limitation. Diffusion weighted imaging demonstrates moderate area of diffusionrestriction abnormality in the right frontal lobe with associated dropouton the ADC map. Additional areas of punctate signal abnormality centeredwithin the right parietal occipital region with associated dropout on the ADC map noted. Associatedhypoattenuation on comparison CT noted. There is no evidence of additionalacute diffusion restriction abnormality. There is associated signalabnormality on FLAIR and T2 weighted imaging compatible with a late acute or subacute age of infarction. Sulcaleffacement noted in the right frontal region. Mild increased T1 signalsuggest a mild degree of hemorrhagic staining. No overt intraparenchymalhemorrhagic transformation. Additional punctate areas of FLAIR and T2 signal hyperintensity within the brainparenchyma most compatible sequela of small vessel ischemic changes.Limited imaging of the major intracranial flow voids appear grossly patentwithin the intracranial portions. There is absent, abnormal flow within portions of the right interosseous andproximal cavernous portions. This is better seen on outside CTA. Theparanasal sinuses and mastoid air cells are grossly clear. Globes andorbits are grossly unremarkable IMPRESSION: Impression: 1.Findings compatible with evolving late acute to subacute infarct withinthe right frontal lobe. Additional punctate areas of signal abnormalitynoted within the right parietal occipital region. 2.Mild increased T1 signal and minimal susceptibility artifact compatiblewith hemorrhagic staining. No overt intraparenchymal hemorrhagictransformation. 3.Abnormal flow within the right internal carotid artery. This is betterseen on outside CTA. 4.Additional white matter changes compatible small vessel ischemicdisease. Findings called to the broadcast traffic coordinator at the time of interpretation. Electronically Signed: Florin Anaya MD 07/18/2025 10:00 AM EST Workstation ID: [id number] Corrine Sahu APRN [facility] [place] ORDER[place]LES Final Re sult * Urinalysis, Microscopic Only - Urine, Clean Catch (07/18/2025 8:00 AM EST) RBC, UA 0-2 None Seen, 0-2 /HPF 07/18/2025 8:44 AM EST [facility] WBC, UA 0-2 None Seen, 0-2 /HPF 07/18/2025 8:44 AM EST [facility] Bacteria, UA None Seen None Seen /HPF 07/18/2025 8:44 AM EST [facility] Squamous Epithelial Cells, UA 0-2 None Seen, 0-2 /HPF 07/18/2025 8:44 AM EST [facility] Hyaline Casts, UA 0-2 None Seen /LPF 07/18/2025 8:44 AM [facility] Methodology Automated Microscopy 07/18/2025 8:44 AM [facility] Urine Urine specimen obtained by clean catch procedure / Unknown Collection / Unknown 07/18/2025 8:00 AM EST 07/18/2025 8:36 AM EST us Vesna Thompson EDUCATIONAL PROGRAM ASSISTANT URINE ORDERABLES Fi nal Result [facility]
[address] [place] [address], * (ABNORMAL) Urinalysis With Microscopic If Indicated (No Culture) - Urine, Clean Catch (07/18/2025 8:00 AM EST) Color, UA Yellow Yellow, Straw 07/18/2025 8:44 AM EST [facility] Appearance, UA Clear Clear 07/18/2025 8:44 AM EST [facility] pH, UA <=5.0 5.0 - 8.0 07/18/2025 8:44 AM EST [facility] Specific [place], UA >1.030(H) 1.005 - 1.030 07/18/2025 8:44 AM EST [facility] Glucose, UA >=1000 mg/dL (3+)(A) Negative 07/18/2025 8:44 AM EST [facility] Ketones, UA 40 mg/dL (2+)(A) Negative 07/18/2025 8:44 AM EST [facility] Bilirubin, UA Negative Negative 07/18/2025 8:44 AM EST [facility] Blood, UA Negative Negative 07/18/2025 8:44 AM EST [facility] Protein, UA 30 mg/dL (1+)(A) Negative 07/18/2025 8:44 AM EST [facility] Leuk Esterase, UA Negative Negative 07/18/2025 8:44 AM EST [facility] Nitrite, UA Negative Negative 07/18/2025 8:44 AM EST [facility] Urobilinogen, UA 0.2 E.U./dL 0.2 - 1.0 E.U./dL 07/18/2025 8:44 AM EST [facility] Urine Urine specimen obtained by clean catch procedure / Unknown Collection / Unknown 07/18/2025 8:00 AM EST 07/18/2025 8:36 AM EST Vesna Thompson EDUCATIONAL PROGRAM ASSISTANT URINE ORDERABLES Fi nal Result Performing Organization Address City/[facility]/ZIP Co de Phone Number [facility] [place] [address], * (ABNORMAL) POC Glucose Once (07/18/2025 7:52 AM EST) Glucose 228(H) 70 - 130 mg/dL 07/18/2025 7:57 AM EST [facility] Comment:Serial Number: [id number] Blood 07/18/2025 7:52 AM EST 07/18/2025 7:57 AM EST Paul Cronin MD POINT OF CARE TEST ORDERABLES F inal Result [facility]
[address] [place] [address], * (ABNORMAL) POC Glucose Once (07/18/2025 6:33 AM EST) [facility] Glucose 223(H) 70 - 130 mg/dL 07/18/2025 6:35 AM EST [facility] Comment:Serial Number: [id number] Blood 07/18/2025 6:33 AM EST 07/18/2025 6:35 AM EST Paul Cronin MD POINT OF CARE TEST ORDERABLES F inal Result Performing Organization Address [facility] Co de Phone Number [facility]
[address] [place] [address], * Lactic Acid, Plasma (07/18/2025 4:54 AM EST) [facility] Lactate 1.5 0.5 - 2.0 mmol/L 07/18/2025 5:43 AM EST [facility] Comment:Falsely depressed re sults may occur on samples drawn from patients receiving N-Acetylcysteine (NAC) or Metamizole. Blood Venipuncture / Unknown 07/18/2025 4:54 AM EST 07/18/2025 5:16 AM EST Vesna Thompson EDUCATIONAL PROGRAM ASSISTANT LAB BLOOD ORDERABLE S Final Result Performing Organization Address [facility] Co de Phone Number [facility]
[address] [place] [address], * ECG 12 Lead Other; new admission (07/18/2025 3:49 AM EST) [facility] QT Interval 332 ms BH ECG QTC Interval 436 ms ECG 07/18/2025 3:49 AM EST 07/18/2025 9:24 AM EST Narrative [facility] ECG - 07/18/2025 9:24 AM EST Test Reason : Other~ Blood Pressure : */* mmHG Vent. Rate : 104 BPM Atrial Rate : 104 BPM P-R Int : 148 ms QRS Dur : 90 ms QT Int : 332 ms P-R-T Axes : 54 10 4 degrees QTcB Int : 436 ms Sinus tachycardia Nonspecific T wave abnormality Abnormal ECG No previous ECGs available Confirmed by Edi Albarado ([id number]) on 07/18/2025 9:24:11 AM Referred By: Confirmed By: Edi Albarado Procedure Note Edi Albarado MD - 07/18/2025 Test Reason : Other~ Blood Pressure : */* mmHG Vent. Rate : 104 BPM Atrial Rate : 104 BPM P-R Int : 148 ms QRS Dur : 90 ms QT Int : 332 ms P-R-T Axes : 54 10 4 degrees QTcB Int : 436 ms Sinus tachycardia Nonspecific T wave abnormality Abnormal ECG No previous ECGs available Confirmed by Edi Albarado ([id number]) on 07/18/2025 9:24:11 AM Referred By: Confirmed By: Edi Albarado Chanelle Goyal MD ECG ORDERABLES Final Result ECG * (ABNORMAL) Lipid Panel (07/18/2025 2:51 AM EST) Total Cholesterol 233(H) 0 - 200 mg/dL 07/18/2025 3:30 AM EST [facility] Triglycerides 305(H) 0 - 150 mg/dL 07/18/2025 3:30 AM EST [facility] HDL Cholesterol 31(L) 40 - 60 mg/dL 07/18/2025 3:30 AM EST [facility] LDL Cholesterol 146(H) 0 - 100 mg/dL 07/18/2025 3:30 AM EST [facility] VLDL Cholesterol 56(H) 5 - 40 mg/dL 07/18/2025 3:30 AM EST [facility] LDL/HDL Ratio 4.55 07/18/2025 3:30 AM EST [facility] Blood Venipuncture / Unknown 07/18/2025 2:51 AM EST 07/18/2025 2:57 AM EST Narrative [facility] - 07/18/2025 3:30 AM EST Cholesterol Reference Ranges (U.S. Department of Health and Human Services ATP III Classifications) Desirable <200 mg/dL Borderline High 200-239 mg/dL High Risk >240 mg/dL Triglyceride Reference Ranges (U.S. Department of Health and Human Services ATP III Classifications) Normal <150 mg/dL Borderline High 150-199 mg/dL High 200-499 mg/dL Very High >500 mg/dL HDL Reference Ranges (U.S. Department of Health and Human Services ATP III Classifications) Low <40 mg/dl (major risk factor for CHD) High >60 mg/dl ('negative' risk factor for CHD) LDL Reference Ranges (U.S. Department of Health and Human Services ATP III Classifications) Optimal <100 mg/dL Near Optimal 100-129 mg/dL Borderline High 130-159 mg/dL High 160-189 mg/dL Very High >189 mg/dL LDL is calculated using the NIH LDL-C calculation. Chanelle Goyal MD LAB BLOOD ORDERABLES Final R esult Performing Organization Address City/[facility]/ZIP Co de Phone Number [facility]
[address] [place] [address], * Magnesium (07/18/2025 2:51 AM EST) Magnesium 1.9 1.6 - 2.4 mg/dL 07/18/2025 3:30 AM EST [facility] Blood Venipuncture / Unknown 07/18/2025 2:51 AM EST 07/18/2025 2:57 AM EST Chanelle Goyal MD LAB BLOOD ORDERABLES Final R esult Performing Organization Address City/[facility]/ZIP Co de Phone Number [facility]
[address] [place] [address], * (ABNORMAL) Comprehensive Metabolic Panel (07/18/2025 2:51 AM EST) [facility] Signature Glucose 232(H) 65 - 99 mg/dL 07/18/2025 3:30 AM [facility] BUN 15.4 8.0 - 23.0 mg/dL 07/18/2025 3:30 AM [facility] Creatinine 0.87 0.76 - 1.27 mg/dL 07/18/2025 3:30 AM [facility] Sodium 137 136 - 145 mmol/L 07/18/2025 3:30 AM [facility] Potassium 3.9 3.5 - 5.2 mmol/L 07/18/2025 3:30 AM [facility] Chloride 101 98 - 107 mmol/L 07/18/2025 3:30 AM [facility] CO2 25.5 22.0 - 29.0 mmol/L 07/18/2025 3:30 AM [facility] Calcium 10.3 8.6 - 10.5 mg/dL 07/18/2025 3:30 AM [facility] Total Protein 7.2 6.0 - 8.5 g/dL 07/18/2025 3:30 AM [facility] Albumin 4.0 3.5 - 5.2 g/dL 07/18/2025 3:30 AM [facility] ALT (SGPT) 14 1 - 41 U/L 07/18/2025 3:30 AM [facility] AST (SGOT) 19 1 - 40 U/L 07/18/2025 3:30 AM [facility] Alkaline Phosphatase 95 39 - 117 U/L 07/18/2025 3:30 AM [facility] Total Bilirubin 0.8 0.0 - 1.2 mg/dL 07/18/2025 3:30 AM [facility] Globulin 3.2 gm/dL 07/18/2025 3:30 AM [facility] Comment:Calculated Result A/G Ratio 1.3 g/dL 07/18/2025 3:30 AM EST [facility] BUN/Creatinine Ratio 17.7 7.0 - 25.0 07/18/2025 3:30 AM EST [facility] Anion Gap 10.5 5.0 - 15.0 mmol/L 07/18/2025 3:30 AM EST [facility] eGFR 94.0 >60.0 mL/min/1.7 3 07/18/2025 3:30 AM EST [facility] Blood Venipuncture / Unknown 07/18/2025 2:51 AM EST 07/18/2025 2:57 AM EST [facility] - 07/18/2025 3:30 AM EST GFR Categories in Chronic Kidney Disease (CKD) GFR Category GFR (mL/min/1.73) Interpretation G1 90 or greater Normal or high (1) G2 60-89 Mild decrease (1) G3a 45-59 Mild to moderate decrease G3b 30-44 Moderate to severe decrease G4 15-29 Severe decrease G5 14 or less Kidney failure (1)In the absence of evidence of kidney disease, neither GFR category G1 or G2 fulfill the criteria for CKD. eGFR calculation 2020 CKD-EPI creatinine equation, which does not include race as a factor us Chanelle Goyal MD LAB BLOOD ORDERABLES Final R esult [facility]
[address] [place] [address], * (ABNORMAL) CBC Auto Differential (07/18/2025 2:50 AM EST) WBC 10.50 3.40 - 10.80 10*3/mm3 07/18/2025 3:15 AM EST [facility] RBC 5.47 4.14 - 5.80 10*6/mm3 07/18/2025 3:15 AM EST [facility] Hemoglobin 16.9 13.0 - 17.7 g/dL 07/18/2025 3:15 AM EST [facility] Hematocrit 48.9 37.5 - 51.0 % 07/18/2025 3:15 AM [facility] MCV 89.4 79.0 - 97.0 fL 07/18/2025 3:15 AM [facility] MCH 30.9 26.6 - 33.0 pg 07/18/2025 3:15 AM [facility] MCHC 34.6 31.5 - 35.7 g/dL 07/18/2025 3:15 AM [facility] RDW 11.9(L) 12.3 - 15.4 % 07/18/2025 3:15 AM [facility] RDW-SD 38.9 37.0 - 54.0 fl 07/18/2025 3:15 AM [facility] MPV 9.3 6.0 - 12.0 fL 07/18/2025 3:15 AM [facility] Platelets 268 140 - 450 10*3/mm3 07/18/2025 3:15 AM [facility] Neutrophil % 64.8 42.7 - 76.0 % 07/18/2025 3:15 AM [facility] Lymphocyte % 26.8 19.6 - 45.3 % 07/18/2025 3:15 AM [facility] Monocyte % 6.2 5.0 - 12.0 % 07/18/2025 3:15 AM [facility] Eosinophil % 1.3 0.3 - 6.2 % 07/18/2025 3:15 AM [facility] Basophil % 0.4 0.0 - 1.5 % 07/18/2025 3:15 AM [facility] Immature Grans % 0.5 0.0 - 0.5 % 07/18/2025 3:15 AM [facility] Neutrophils, Absolute 6.81 1.70 - 7.00 10*3/mm3 07/18/2025 3:15 AM [facility] Lymphocytes, Absolute 2.81 0.70 - 3.10 10*3/mm3 07/18/2025 3:15 AM EST [facility] Monocytes, Absolute 0.65 0.10 - 0.90 10*3/mm3 07/18/2025 3:15 AM EST [facility] Eosinophils, Absolute 0.14 0.00 - 0.40 10*3/mm3 07/18/2025 3:15 AM EST [facility] Basophils, Absolute 0.04 0.00 - 0.20 10*3/mm3 07/18/2025 3:15 AM EST [facility] Immature Grans, Absolute 0.05 0.00 - 0.05 10*3/mm3 07/18/2025 3:15 AM EST [facility] nRBC 0.0 0.0 - 0.2 /100 WBC 07/18/2025 3:15 AM EST [facility] Blood Venipuncture / Unknown 07/18/2025 2:50 AM EST 07/18/2025 3:12 AM EST Chanelle Goyal MD LAB BLOOD ORDERABLES Final R esult [facility]
[address] [place] [address], * (ABNORMAL) Hemoglobin A1c (07/18/2025 2:50 AM EST) Hemoglobin A1C 10.90(H) 4.80 - 5.60 % 07/18/2025 3:11 AM EST [facility] Blood Venipuncture / Unknown 07/18/2025 2:50 AM EST 07/18/2025 2:57 AM EST Narrative [facility] - 07/18/2025 3:11 AM EST Hemoglobin A1C Ranges: Increased Risk for Diabetes 5.7% to 6.4% Diabetes >= 6.5% Diabetic Goal < 7.0% Chanelle Goyal MD LAB BLOOD ORDERABLES Final R esult [facility]
[address] [place] [address], * (ABNORMAL) POC Glucose Once (07/18/2025 2:40 AM EST) Glucose 221(H) 70 - 130 mg/dL 07/18/2025 2:43 AM EST [facility] Comment:Serial Number: [id number]: [id number] Blood 07/18/2025 2:40 AM EST 07/18/2025 2:43 AM EST Chanelle Goyal MD POINT OF CARE TEST ORDERABLE S Final Result [facility]
[address] [place] [address], * IMAGING SCANNED (07/18/2025) Anatomical Region Laterality Modality Radiographic [place] [facility] IMG DIAGNOSTIC IMAGING ORDERA BLES Final Result * IMAGING SCANNED (07/18/2025) Anatomical Region Laterality Modality Radiographic [place] [facility] IMG DIAGNOSTIC IMAGING ORDERA BLES Final Result documented in this encounter Visit Diagnoses Diagnosis Ischemic stroke of frontal lobe- Primary Cognitive communication disorder Ischemic stroke of frontal lobe Hyperglycemia Other abnormal glucose Dysphagia Dental abscess Periapical abscess without sinus Type 2 diabetes mellitus with hyperglycemia Mixed hyperlipidemia Sinus tachycardia Other specified cardiac dysrhythmias Elevated blood pressure reading Elevated blood pressure reading without diagnosis of hypertension documented in this encounter Admitting Diagnoses Diagnosis Ischemic stroke of frontal lobe documented in this encounter Administered Medications Inactive Administered Medications - up to 3 most recent administrations Medication Order MAR Action Action Date Dose Rate Site acetaminophen (TYLENOL) 160 MG/5ML oral solution 650 mg 650 mg, Oral, Every 4 Hours PRN, Mild Pain, Starting on 07/18/25 at 0450, If given for fever, use fever parameter: fever greater than 100.4 F Based on patient request - if ordered for moderate or severe pain, provider allows for administration of a medication prescribed for a lower pain scale. Do not exceed 4 grams of acetaminophen in a 24 hr period. Max dose of 2gm for AST/ALT greater than 120 units/L. If given for pain, use the following pain scale: Mild Pain = Pain Score of 1-3, CPOT 1-2 Moderate Pain = Pain Score of 4-6, CPOT 3-4 Severe Pain = Pain Score of 7-10, CPOT 5-8 acetaminophen (TYLENOL) suppository 650 mg 650 mg, Rectal, Every 4 Hours PRN, Mild Pain, Starting on 07/18/25 at 0450, If given for fever, use fever parameter: fever greater than 100.4 F Based on patient request - if ordered for moderate or severe pain, provider allows for administration of a medication prescribed for a lower pain scale. Do not exceed 4 grams of acetaminophen in a 24 hr period. Max dose of 2gm for AST/ALT greater than 120 units/L. If given for pain, use the following pain scale: Mild Pain = Pain Score of 1-3, CPOT 1-2 Moderate Pain = Pain Score of 4-6, CPOT 3-4 Severe Pain = Pain Score of 7-10, CPOT 5-8 acetaminophen (TYLENOL) tablet 650 mg 650 mg, Oral, Every 4 Hours PRN, Mild Pain, Starting on 07/18/25 at 0450, If given for fever, use fever parameter: fever greater than 100.4 F Based on patient request - if ordered for moderate or severe pain, provider allows for administration of a medication prescribed for a lower pain scale. Do not exceed 4 grams of acetaminophen in a 24 hr period. Max dose of 2gm for AST/ALT greater than 120 units/L. If given for pain, use the following pain scale: Mild Pain = Pain Score of 1-3, CPOT 1-2 Moderate Pain = Pain Score of 4-6, CPOT 3-4 Severe Pain = Pain Score of 7-10, CPOT 5-8 Given 07/18/2025 6:42 AM EST 650 mg ampicillin-sulbactam (UNASYN) 3 g in sodium chloride 0.9 % 100 mL MBP 3 g, Intravenous, Administer over 30 Minutes, Every 6 Hours, First dose on 07/18/25 at 0600, For 5 days, Activate vial before using., Indications: Dental abscessIndications:Dental abscess New Bag 07/19/2025 11:37 AM EST 3 g New Bag 07/19/2025 5:37 AM EST 3 g New Bag 07/18/2025 11:22 PM EST 3 g aspirin chewable tablet 81 mg 81 mg, Oral, Daily, First dose on 07/18/25 at 0900, If patient fails dysphagia, [place] option MUST be given. Do not exceed 4 grams of aspirin in a 24 hr period. If given for pain, use the following pain scale: Mild Pain = Pain Score of 1-3, CPOT 1-2 Moderate Pain = Pain Score of 4-6, CPOT 3-4 Severe Pain = Pain Score of 7-10, CPOT 5-8 Given 07/19/2025 8:49 AM EST 81 mg Given 07/18/2025 9:26 AM EST 81 mg aspirin suppository 300 mg 300 mg, Rectal, Daily, First dose on 07/18/25 at 0900, If patient fails dysphagia, [place] option MUST be given. Do not exceed 4 grams of aspirin in a 24 hr period. If given for pain, use the following pain scale: Mild Pain = Pain Score of 1-3, CPOT 1-2 Moderate Pain = Pain Score of 4-6, CPOT 3-4 Severe Pain = Pain Score of 7-10, CPOT 5-8 atorvastatin (LIPITOR) tablet 80 mg 80 mg, Oral, Nightly, First dose on 07/18/25 at 0400, Avoid grapefruit juice. Given 07/18/2025 11:22 PM EST 8 0 mg Given 07/18/2025 6:41 AM EST 80 mg barium sulfate (VARIBAR PUDDING) oral paste 20 mL 20 mL, Oral, Once in Imaging, On 07/19/25 at 1045, For 1 dose, ([facility]) Shake well before administration. Given 07/19/2025 9:52 AM EST 20 mL barium sulfate (VARIBAR THIN LIQUID) oral suspension 100 mL 100 mL, Oral, Once in Imaging, On 07/19/25 at 1045, For 1 dose, ([facility]) Shake well before administration. Given 07/19/2025 9:53 AM EST 100 mL bisacodyl (DULCOLAX) EC tablet 5 mg 5 mg, Oral, Daily PRN, Constipation, Use if polyethylene glycol is ineffective, Starting on 07/18/25 at 0450, Use if no bowel movement after 12 hours. Swallow whole. Do not crush, split, or chew tablet. bisacodyl (DULCOLAX) suppository 10 mg 10 mg, Rectal, Daily PRN, Constipation, Use if bisacodyl oral is ineffective, Starting on 07/18/25 at 0450, Use if no bowel movement after 12 hours. Hold for diarrhea Calcium Replacement - Follow Nurse / OPA Driven Protocol Open Order & Select [facility] Electrolyte Replacement Protocol Algorithm to View Details clopidogrel (PLAVIX) tablet 75 mg 75 mg, Oral, Daily, First dose on 07/18/25 at 0900 Given 07/19/2025 8:49 AM EST 75 mg Given 07/18/2025 9:26 AM EST 75 mg dextrose (D50W) (25 g/50 mL) IV injection 25 g 25 g, Intravenous, Every 15 Minutes PRN, Low Blood Sugar, Blood Sugar Less Than 70, Starting on 07/18/25 at 0238, Blood sugar less than 70; patient has IV access - Unresponsive, NPO or Unable To Safely Swallow dextrose (GLUTOSE) oral gel 15 g 15 g, Oral, Every 15 Minutes PRN, Low Blood Sugar, Blood sugar less than 70, Starting on 07/18/25 at 0238, BS<70, Patient Alert, Is not NPO, Can safely swallow. famotidine (PEPCID) tablet 40 mg 40 mg, Oral, Daily, First dose on 07/18/25 at 0900 Given 07/19/2025 8:49 AM EST 40 mg Given 07/18/2025 9:26 AM EST 40 mg glucagon (GLUCAGEN) injection 1 mg 1 mg, Intramuscular, Every 15 Minutes PRN, Low Blood Sugar, Blood Glucose Less Than 70, Starting on 07/18/25 at 0238, Blood Glucose Less Than 70 - Patient Without IV Access - Unresponsive, NPO or Unable To Safely Swallow Reconstitute powder for injection by adding 1 mL of communications engineer-supplied sterile diluent or sterile water for injection to a vial containing 1 mg of the drug, to provide solutions containing 1 mg/mL. Shake vial gently to dissolve. insulin glargine (LANTUS, SEMGLEE) injection 5 Units 5 Units, Subcutaneous, Daily, First dose on Sat07/19/25 at 1100, Do not hold basal insulin without an order. Consider requesting a dose edit, if needed. ([facility]) Given 07/19/2025 11:36 AM EST 5 Units Right Arm insulin regular (humuLIN R,novoLIN R) injection 2-9 Units 2-9 Units, Subcutaneous, Every 6 Hours Scheduled, First dose on Sat07/18/25 at 0600, Correction Insulin - Moderate Dose (Total Insulin Dose 40-60 units/day, Average Weight Patient, Patient Taking Oral Hypoglycemic) Blood Glucose 150-199 mg/dL - 2 units Blood Glucose 200-249 mg/dL - 4 units Blood Glucose 250-299 mg/dL - 6 units Blood Glucose 300-349 mg/dL - 7 units Blood Glucose 350-400 mg/dL - 8 units Blood Glucose greater than 400 mg/dL - 9 units & Call Provider ([facility]) Caution: Look alike/sound alike drug alert([facility]) Given 07/18/2025 6:43 AM EST 4 Units Right Arm insulin regular (humuLIN R,novoLIN R) injection 2-9 Units 2-9 Units, Subcutaneous, 3 Times Daily Before Meals, First dose (after last modification) on Sat07/18/25 at 0915, Correction Insulin - Moderate Dose (Total Insulin Dose 40-60 units/day, Average Weight Patient, Patient Taking Oral Hypoglycemic) Blood Glucose 150-199 mg/dL - 2 units Blood Glucose 200-249 mg/dL - 4 units Blood Glucose 250-299 mg/dL - 6 units Blood Glucose 300-349 mg/dL - 7 units Blood Glucose 350-400 mg/dL - 8 units Blood Glucose greater than 400 mg/dL - 9 units & Call Provider ([facility]) Caution: Look alike/sound alike drug alert(C) Given 07/19/2025 11:36 AM EST 7 Units Right Arm Given 07/19/2025 8:49 AM EST 4 Units Le ft Arm Given 07/18/2025 6:06 PM EST 6 Units Le ft Arm iopamidol (ISOVUE-300) 61 % injection 100 mL 100 mL, Intravenous, Once in Imaging, On Sat07/19/25 at 1030, For 1 dose Given 07/19/2025 9:34 AM EST 85 mL lactated ringers infusion 100 mL/hr, Intravenous, Continuous, Starting on 07/18/25 at 0545, For 12 hours New Bag 07/18/2025 5:14 AM EST 100 mL/hr 100 mL/hr LORazepam (ATIVAN) injection 0.5 mg 0.5 mg, Intravenous, Once, On 07/18/25 at 0715, For 1 dose, Dilute 1:1 with normal saline. ([facility]} Caution: Look alike/sound alike. Prior to MRI Given 07/18/2025 8:25 AM EST 0.5 mg Magnesium Standard Dose Replacement - Follow Nurse / OPA Driven Protocol Open Order & Select [facility] Electrolyte Replacement Protocol Algorithm to View Details ondansetron (ZOFRAN) injection 4 mg 4 mg, Intravenous, Every 6 Hours PRN, Nausea, Vomiting, Starting on 07/18/25 at 0450, If BOTH ondansetron (ZOFRAN) and promethazine (PHENERGAN) are ordered use ondansetron first and THEN promethazine IF ondansetron is ineffective. Given 07/18/2025 12:57 PM EST 4 mg Phosphorus Replacement - Follow Nurse / OPA Driven Protocol Open Order & Select [facility] Electrolyte Replacement Protocol Algorithm to View Details polyethylene glycol (MIRALAX) packet 17 g 17 g, Oral, Daily PRN, Constipation, Use if senna-docusate is ineffective, Starting on 07/18/25 at 0450, Use if no bowel movement after 12 hours. Mix in 6-8 ounces of water. Use 4-8 ounces of water, tea, or juice for each 17 gram dose. Potassium Replacement - Follow Nurse / OPA Driven Protocol Open Order & Select [facility] Electrolyte Replacement Protocol Algorithm to View Details sennosides-docusate (PERICOLACE) 8.6-50 MG per tablet 2 tablet 2 tablet, Oral, 2 Times Daily PRN, Constipation, Starting on 07/18/25 at 0450, Start bowel management regimen if patient has not had a bowel movement after 12 hours. sodium chloride 0.9 % flush 10 mL 10 mL, Intravenous, Every 12 Hours Scheduled, First dose on 07/18/25 at 0900 Given 07/19/2025 8:50 AM EST 10 mL Given 07/18/2025 11:23 PM EST 10 mL Given 07/18/2025 9:27 AM EST 10 mL sodium chloride 0.9 % flush 10 mL 10 mL, Intravenous, As Needed, Line Care, Starting on 07/18/25 at 0449 sodium chloride 0.9 % infusion 40 mL 40 mL, Intravenous, at 100 mL/hr, As Needed, Line Care, Starting on 07/18/25 at 0449, Following administration of an IV intermittent medication, flush line with 40mL NS at 100mL/hr. Sulfur Hexafluoride Microsph (LUMASON) 60.7-25 MG IV reconstituted suspension reconstituted suspension 2 mL 2 mL, Intravenous, Once in Imaging, On 07/18/25 at 1130, For 1 dose Given 07/18/2025 10:43 AM EST 2 mL documented in this encounter Active and Recently Administered Medications Times are shown in EST. Scheduled Medication Order 07/17/2025 07/18/2025 07/19/2025 ampicillin-sulbactam (UNASYN) 3 g in sodium chloride 0.9 % 100 mL MBP 3 g, Intravenous, Administer over 30 Minutes, Every 6 Hours, First dose on 07/18/25 at 0600, For 5 days, Activate vial before using., Indications: Dental abscess 0643 (New Bag - Provider: Sadie Jenkins RN)1201 (New Bag - Provider: Aliyah Reilly RN)1806 (New Bag - Provider: Aliyah Reilly RN)2322 (New Bag - Provider: Sadie Jenkins RN) 0537 (New Bag - Provider: Sadie Jenkins RN)1137 (New Bag - Provider: Lavonne Mccracken, RUPESH) aspirin chewable tablet 81 mg(Linked Group 1) 81 mg, Oral, Daily, First dose on 07/18/25 at 0900, If patient fails dysphagia, [place] option MUST be given. Do not exceed 4 grams of aspirin in a 24 hr period. If given for pain, use the following pain scale: Mild Pain = Pain Score of 1-3, CPOT 1-2 Moderate Pain = Pain Score of 4-6, CPOT 3-4 Severe Pain = Pain Score of 7-10, CPOT 5-8 0926 (Given - Provider: Aliyah Reilly RN) 0849 (Given - Provider: Lavonne Mccracken RN) aspirin suppository 300 mg(Linked Group 1) 300 mg, Rectal, Daily, First dose on Sat07/18/25 at 0900, If patient fails dysphagia, [place] option MUST be given. Do not exceed 4 grams of aspirin in a 24 hr period. If given for pain, use the following pain scale: Mild Pain = Pain Score of 1-3, CPOT 1-2 Moderate Pain = Pain Score of 4-6, CPOT 3-4 Severe Pain = Pain Score of 7-10, CPOT 5-8 0926 (Not Given: See Alt - Provider: Aliyah Reilly RN) 0849 (Not Given: See Alt - Provider: Lavonne Mccracken RN) atorvastatin (LIPITOR) tablet 80 mg 80 mg, Oral, Nightly, First dose on Sat07/18/25 at 0400, Avoid grapefruit juice. 0641 (Given - Provider: Sadie Jenkins RN)2322 (Given - Provider: Sadie Jenkins RN) barium sulfate (VARIBAR PUDDING) oral paste 20 mL (COMPLETED) 20 mL, Oral, Once in Imaging, On Sat07/19/25 at 1045, For 1 dose, ([facility]) Shake well before administration. 0952 (Given - Provid er: Neel Damian) barium sulfate (VARIBAR THIN LIQUID) oral suspension 100 mL (COMPLETED) 100 mL, Oral, Once in Imaging, On Sat07/19/25 at 1045, For 1 dose, ([facility]) Shake well before administration. 0953 (Given - Provid er: Neel Damian) clopidogrel (PLAVIX) tablet 75 mg 75 mg, Oral, Daily, First dose on Sat07/18/25 at 0900 09 (Given - Provider: Aliyah Reilly RN) 0849 (Given - Provider: Lavonne Mccracken RN) famotidine (PEPCID) tablet 40 mg 40 mg, Oral, Daily, First dose on Sat07/18/25 at 0900 0926 (Given - Provider: Aliyah Reilly RN) 0849 (Given - Provider: Lavonne Mccracken RN) insulin glargine (LANTUS, SEMGLEE) injection 5 Units 5 Units, Subcutaneous, Daily, First dose on Sat07/19/25 at 1100, Do not hold basal insulin without an order. Consider requesting a dose edit, if needed. ([facility]) 1136 (Given - Provid er: Lavonne Mccracken RN) insulin regular (humuLIN R,novoLIN R) injection 2-9 Units (CANCELED) 2-9 Units, Subcutaneous, Every 6 Hours Scheduled, First dose on Sat07/18/25 at 0600, Correction Insulin - Moderate Dose (Total Insulin Dose 40-60 units/day, Average Weight Patient, Patient Taking Oral Hypoglycemic) Blood Glucose 150-199 mg/dL - 2 units Blood Glucose 200-249 mg/dL - 4 units Blood Glucose 250-299 mg/dL - 6 units Blood Glucose 300-349 mg/dL - 7 units Blood Glucose 350-400 mg/dL - 8 units Blood Glucose greater than 400 mg/dL - 9 units & Call Provider ([facility]) Caution: Look alike/sound alike drug alert([facility]) 0643 (Given - Provider: Sadie Jenkins RN) insulin regular (humuLIN R,novoLIN R) injection 2-9 Units 2-9 Units, Subcutaneous, 3 Times Daily Before Meals, First dose (after last modification) on Sat07/18/25 at 0915, Correction Insulin - Moderate Dose (Total Insulin Dose 40-60 units/day, Average Weight Patient, Patient Taking Oral Hypoglycemic) Blood Glucose 150-199 mg/dL - 2 units Blood Glucose 200-249 mg/dL - 4 units Blood Glucose 250-299 mg/dL - 6 units Blood Glucose 300-349 mg/dL - 7 units Blood Glucose 350-400 mg/dL - 8 units Blood Glucose greater than 400 mg/dL - 9 units & Call Provider ([facility]) Caution: Look alike/sound alike drug alert([facility]) 0828 (Given - Provider: Aliyah Reilly, RUPESH)1200 (Given - Provider: Aliyah Reilly, RUPESH)1806 (Given - Provider: Aliyah Reilly RN) 0849 (Given - Provider: Lavonne Mccracken RN)1136 (Given - Provider: Lavonne Mccracken, RN) iopamidol (ISOVUE-300) 61 % injection 100 mL (COMPLETED) 100 mL, Intravenous, Once in Imaging, On Sat07/19/25 at 1030, For 1 dose 0934 (Given - Provid er: Cassy Patel) LORazepam (ATIVAN) injection 0.5 mg (COMPLETED) 0.5 mg, Intravenous, Once, On 07/18/25 at 0715, For 1 dose, Dilute 1:1 with normal saline. ([facility]} Caution: Look alike/sound alike. Prior to MRI 0825 (Given - Provider: Aliyah Reilly, RUPESH) sodium chloride 0.9 % flush 10 mL 10 mL, Intravenous, Every 12 Hours Scheduled, First dose on 07/18/25 at 0900 0927 (Given - Provider: Aliyah Reilly, RUPESH)2323 (Given - Provider: Sadie Jenkins, RUPESH) 0850 (Given - Provider: Lavonne Mccracken, RUPESH) Sulfur Hexafluoride Microsph (LUMASON) 60.7-25 MG IV reconstituted suspension reconstituted suspension 2 mL (COMPLETED) 2 mL, Intravenous, Once in Imaging, On 07/18/25 at 1130, For 1 dose 1043 (Given - Provider: Valerio Sierra [facility]) Continuous Medication Order 07/17/2025 07/18/2025 07/19/2025 lactated ringers infusion () 100 mL/hr, Intravenous, Continuous, Starting on 07/18/25 at 0545, For 12 hours 0514 (New Bag - Provider: Sadie Jenkins, RUPESH)1642 (Stopped - Provider: Aliyah Reilly RN - Comment: [Order ends at this time. Document the following action when infusion is complete: Stopped]) PRN Medication Order 07/17/2025 07/18/2025 07/19/2025 acetaminophen (TYLENOL) 160 MG/5ML oral solution 650 mg(Linked Group 2) 650 mg, Oral, Every 4 Hours PRN, Mild Pain, Starting on 07/18/25 at 0450, If given for fever, use fever parameter: fever greater than 100.4 F Based on patient request - if ordered for moderate or severe pain, provider allows for administration of a medication prescribed for a lower pain scale. Do not exceed 4 grams of acetaminophen in a 24 hr period. Max dose of 2gm for AST/ALT greater than 120 units/L. If given for pain, use the following pain scale: Mild Pain = Pain Score of 1-3, CPOT 1-2 Moderate Pain = Pain Score of 4-6, CPOT 3-4 Severe Pain = Pain Score of 7-10, CPOT 5-8 0642 (Not Given: See Alt - Provider: Sadie Jenkins RN) acetaminophen (TYLENOL) suppository 650 mg(Linked Group 2) 650 mg, Rectal, Every 4 Hours PRN, Mild Pain, Starting on 07/18/25 at 0450, If given for fever, use fever parameter: fever greater than 100.4 F Based on patient request - if ordered for moderate or severe pain, provider allows for administration of a medication prescribed for a lower pain scale. Do not exceed 4 grams of acetaminophen in a 24 hr period. Max dose of 2gm for AST/ALT greater than 120 units/L. If given for pain, use the following pain scale: Mild Pain = Pain Score of 1-3, CPOT 1-2 Moderate Pain = Pain Score of 4-6, CPOT 3-4 Severe Pain = Pain Score of 7-10, CPOT 5-8 0642 (Not Given: See Alt - Provider: Sadie Jenkins RN) acetaminophen (TYLENOL) tablet 650 mg(Linked Group 2) 650 mg, Oral, Every 4 Hours PRN, Mild Pain, Starting on 07/18/25 at 0450, If given for fever, use fever parameter: fever greater than 100.4 F Based on patient request - if ordered for moderate or severe pain, provider allows for administration of a medication prescribed for a lower pain scale. Do not exceed 4 grams of acetaminophen in a 24 hr period. Max dose of 2gm for AST/ALT greater than 120 units/L. If given for pain, use the following pain scale: Mild Pain = Pain Score of 1-3, CPOT 1-2 Moderate Pain = Pain Score of 4-6, CPOT 3-4 Severe Pain = Pain Score of 7-10, CPOT 5-8 0642 (Given - Provider: Sadie Jenkins RN) bisacodyl (DULCOLAX) EC tablet 5 mg(Linked Group 3) 5 mg, Oral, Daily PRN, Constipation, Use if polyethylene glycol is ineffective, Starting on 07/18/25 at 0450, Use if no bowel movement after 12 hours. Swallow whole. Do not crush, split, or chew tablet. bisacodyl (DULCOLAX) suppository 10 mg(Linked Group 3) 10 mg, Rectal, Daily PRN, Constipation, Use if bisacodyl oral is ineffective, Starting on Sat07/18/25 at 0450, Use if no bowel movement after 12 hours. Hold for diarrhea Calcium Replacement - Follow Nurse / OPA Driven Protocol Open Order & Select [facility] Electrolyte Replacement Protocol Algorithm to View Details dextrose (D50W) (25 g/50 mL) IV injection 25 g 25 g, Intravenous, Every 15 Minutes PRN, Low Blood Sugar, Blood Sugar Less Than 70, Starting on 07/18/25 at 0238, Blood sugar less than 70; patient has IV access - Unresponsive, NPO or Unable To Safely Swallow dextrose (GLUTOSE) oral gel 15 g 15 g, Oral, Every 15 Minutes PRN, Low Blood Sugar, Blood sugar less than 70, Starting on 07/18/25 at 0238, BS<70, Patient Alert, Is not NPO, Can safely swallow. glucagon (GLUCAGEN) injection 1 mg 1 mg, Intramuscular, Every 15 Minutes PRN, Low Blood Sugar, Blood Glucose Less Than 70, Starting on Sat07/18/25 at 0238, Blood Glucose Less Than 70 - Patient Without IV Access - Unresponsive, NPO or Unable To Safely Swallow Reconstitute powder for injection by adding 1 mL of communications engineer-supplied sterile diluent or sterile water for injection to a vial containing 1 mg of the drug, to provide solutions containing 1 mg/mL. Shake vial gently to dissolve. influenza vac split high-dose (FLUZONE HIGH DOSE) injection 0.5 mL 0.5 mL, Intramuscular, During Hospitalization, Immunization, Starting on Sat07/19/25 at 1631, For 1 dose, Do Not Administer if Temperature Greater Than 102F & Notify Pharmacy Pneumococcal & Influenza Vaccines May Be Given At The Same Time in SEPARATE Injections. Do not administer if temperature greater than 102F & notify pharmacy. Pneumococcal and influenza vaccines may be given at the same time in SEPARATE injections. Magnesium Standard Dose Replacement - Follow Nurse / OPA Driven Protocol Open Order & Select [facility] Electrolyte Replacement Protocol Algorithm to View Details ondansetron (ZOFRAN) injection 4 mg 4 mg, Intravenous, Every 6 Hours PRN, Nausea, Vomiting, Starting on Sat07/18/25 at 0450, If BOTH ondansetron (ZOFRAN) and promethazine (PHENERGAN) are ordered use ondansetron first and THEN promethazine IF ondansetron is ineffective. 1257 (Given - Provider: Amber Acosta RN) Phosphorus Replacement - Follow Nurse / OPA Driven Protocol Open Order & Select [facility] Electrolyte Replacement Protocol Algorithm to View Details polyethylene glycol (MIRALAX) packet 17 g(Linked Group 3) 17 g, Oral, Daily PRN, Constipation, Use if senna-docusate is ineffective, Starting on 07/18/25 at 0450, Use if no bowel movement after 12 hours. Mix in 6-8 ounces of water. Use 4-8 ounces of water, tea, or juice for each 17 gram dose. Potassium Replacement - Follow Nurse / OPA Driven Protocol Open Order & Select [facility] Electrolyte Replacement Protocol Algorithm to View Details sennosides-docusate (PERICOLACE) 8.6-50 MG per tablet 2 tablet(Linked Group 3) 2 tablet, Oral, 2 Times Daily PRN, Constipation, Starting on 07/18/25 at 0450, Start bowel management regimen if patient has not had a bowel movement after 12 hours. sodium chloride 0.9 % flush 10 mL 10 mL, Intravenous, As Needed, Line Care, Starting on 07/18/25 at 0449 sodium chloride 0.9 % infusion 40 mL 40 mL, Intravenous, at 100 mL/hr, As Needed, Line Care, Starting on 07/18/25 at 0449, Following administration of an IV intermittent medication, flush line with 40mL NS at 100mL/hr. Linked Groups Order Group 1: aspirin chewable tablet 81 mgJump to med 81 mg, Oral, Daily, First dose on 07/18/25 at 0900, If patient fails dysphagia, [place] option MUST be given. Do not exceed 4 grams of aspirin in a 24 hr period. If given for pain, use the following pain scale: Mild Pain = Pain Score of 1-3, CPOT 1-2 Moderate Pain = Pain Score of 4-6, CPOT 3-4 Severe Pain = Pain Score of 7-10, CPOT 5-8 Or aspirin suppository 300 mgJump to med 300 mg, Rectal, Daily, First dose on 07/18/25 at 0900, If patient fails dysphagia, [place] option MUST be given. Do not exceed 4 grams of aspirin in a 24 hr period. If given for pain, use the following pain scale: Mild Pain = Pain Score of 1-3, CPOT 1-2 Moderate Pain = Pain Score of 4-6, CPOT 3-4 Severe Pain = Pain Score of 7-10, CPOT 5-8 Group 2: acetaminophen (TYLENOL) tablet 650 mgJump to med 650 mg, Oral, Every 4 Hours PRN, Mild Pain, Starting on 07/18/25 at 0450, If given for fever, use fever parameter: fever greater than 100.4 F Based on patient request - if ordered for moderate or severe pain, provider allows for administration of a medication prescribed for a lower pain scale. Do not exceed 4 grams of acetaminophen in a 24 hr period. Max dose of 2gm for AST/ALT greater than 120 units/L. If given for pain, use the following pain scale: Mild Pain = Pain Score of 1-3, CPOT 1-2 Moderate Pain = Pain Score of 4-6, CPOT 3-4 Severe Pain = Pain Score of 7-10, CPOT 5-8 Or acetaminophen (TYLENOL) 160 MG/5ML oral solution 650 mgJump to med 650 mg, Oral, Every 4 Hours PRN, Mild Pain, Starting on 07/18/25 at 0450, If given for fever, use fever parameter: fever greater than 100.4 F Based on patient request - if ordered for moderate or severe pain, provider allows for administration of a medication prescribed for a lower pain scale. Do not exceed 4 grams of acetaminophen in a 24 hr period. Max dose of 2gm for AST/ALT greater than 120 units/L. If given for pain, use the following pain scale: Mild Pain = Pain Score of 1-3, CPOT 1-2 Moderate Pain = Pain Score of 4-6, CPOT 3-4 Severe Pain = Pain Score of 7-10, CPOT 5-8 Or acetaminophen (TYLENOL) suppository 650 mgJump to med 650 mg, Rectal, Every 4 Hours PRN, Mild Pain, Starting on 07/18/25 at 0450, If given for fever, use fever parameter: fever greater than 100.4 F Based on patient request - if ordered for moderate or severe pain, provider allows for administration of a medication prescribed for a lower pain scale. Do not exceed 4 grams of acetaminophen in a 24 hr period. Max dose of 2gm for AST/ALT greater than 120 units/L. If given for pain, use the following pain scale: Mild Pain = Pain Score of 1-3, CPOT 1-2 Moderate Pain = Pain Score of 4-6, CPOT 3-4 Severe Pain = Pain Score of 7-10, CPOT 5-8 Group 3: sennosides-docusate (PERICOLACE) 8.6-50 MG per tablet 2 tabletJump to med 2 tablet, Oral, 2 Times Daily PRN, Constipation, Starting on 07/18/25 at 0450, Start bowel management regimen if patient has not had a bowel movement after 12 hours. And polyethylene glycol (MIRALAX) packet 17 gJump to med 17 g, Oral, Daily PRN, Constipation, Use if senna-docusate is ineffective, Starting on 07/18/25 at 0450, Use if no bowel movement after 12 hours. Mix in 6-8 ounces of water. Use 4-8 ounces of water, tea, or juice for each 17 gram dose. And bisacodyl (DULCOLAX) EC tablet 5 mgJump to med 5 mg, Oral, Daily PRN, Constipation, Use if polyethylene glycol is ineffective, Starting on 07/18/25 at 0450, Use if no bowel movement after 12 hours. Swallow whole. Do not crush, split, or chew tablet. And bisacodyl (DULCOLAX) suppository 10 mgJump to med 10 mg, Rectal, Daily PRN, Constipation, Use if bisacodyl oral is ineffective, Starting on 07/18/25 at 0450, Use if no bowel movement after 12 hours. Hold for diarrhea documented in this encounter Care Teams Cookie Mixer Helper Relationship Specialty Start Date End Date Sera Newell APRN [address] [place] [address] PCP - General Nurse Practitioner 07/19/25 documented as of this encounter
[2025-07-26 10:26] VITALS: BP 155/88; PULSE 94; O2SAT 99
[2025-07-26 10:29] VITALS: BP 155/88; PULSE 75; RESP 18; TEMP 36.7; O2SAT 99; BMI 31.9
--- NOTE | 2025-07-26 10:29 | PC.NURSE ---
Provider to bedside. C-Collar applied
[2025-07-26 10:30] VITALS: BP 159/87; PULSE 89; O2SAT 98
--- NOTE | 2025-07-26 10:31 | CT_ITS ---
PROCEDURE INFORMATION: Exam: CT Head Without Contrast Exam date and time: 07/26/2025 10:37 AM Age: 70 years old Clinical indication: Injury or trauma; Fall; Blunt trauma (contusions or hematomas); Additional info: Fall, + anticoagulation TECHNIQUE: Imaging protocol: Computed tomography of the head without contrast. Radiation optimization: All CT scans at this facility use at least one of these dose optimization techniques: automated exposure control; mA and/or kV adjustment per patient size (includes targeted exams where dose is matched to clinical indication); or iterative reconstruction. COMPARISON: CT ANGIO HEAD 07/17/2025 5:26 PM FINDINGS: Brain: The previously seen right frontal lobe and temporal-occipital lobe infarcts are similar in appearance. There is no evidence of acute parenchymal hemorrhage or extra-axial collection. There is no mass effect, midline shift, or downward herniation. Cerebral ventricles: No ventriculomegaly. Paranasal sinuses: Visualized sinuses are unremarkable. No fluid levels. Mastoid air cells: Visualized mastoid air cells are well aerated. Bones: Unremarkable. No acute fracture. Soft tissues: Unremarkable. IMPRESSION: 1. 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 2. Otherwise no significant change.
--- NOTE | 2025-07-26 10:31 | CT_ITS ---
PROCEDURE INFORMATION: Exam: CT Cervical Spine Without Contrast Exam date and time: 07/26/2025 10:39 AM Age: 70 years old Clinical indication: Injury or trauma; Fall; Additional info: Fall, neck pain TECHNIQUE: Imaging protocol: Computed tomography of the cervical spine without contrast. Radiation optimization: All CT scans at this facility use at least one of these dose optimization techniques: automated exposure control; mA and/or kV adjustment per patient size (includes targeted exams where dose is matched to clinical indication); or iterative reconstruction. COMPARISON: CT ANGIO NECK 07/17/2025 5:26 PM FINDINGS: Bones/joints: No acute fracture. Normal alignment. There is straightening of cervical lordosis. There is moderate to advanced multilevel degenerative disc disease. There is multilevel spinal canal stenosis most notable at C5-C6 where there is moderate stenosis secondary to disc osteophyte ridging. Lungs: Lung apices are normal. Soft tissues: Unremarkable. IMPRESSION: No acute cervical spine fracture.
--- NOTE | 2025-07-26 10:32 | ED_ITS ---
<Statement entered by Champ Simpson MD - 07/26/25 12:38> Champ Simpson MD: I was consulted by the EVETTE, and we discussed the complexity of the problems being addressed. I approved the treatment and management plan for this patient's care in the emergency department, thus performing a substantive portion of the medical decision making. Discharge Plan Disposition Patient Disposition: Home, Self-Care Condition: Good Prescriptions Prescriptions: No Action famotidine 20 MG tablet 20 mg PO DAILY Referrals Follow up/Referrals: Sera Newell APRN [Primary Care Provider, Medical] - See instructions Activity Restrictions/Add. Instructions Additional Instructions/Restrictions: You were seen today in the emergency department for evaluation after a fall earlier this morning. CT scans of your head and neck were unremarkable with no emergent findings. Take [id number] medications such as Tylenol or ibuprofen for ongoing neck pain. Alternative therapies such as heating pads or ice packs may also be beneficial. Please follow-up with your primary care provider to discuss this following today's ED visit. Return to the emergency department with any new falls, or other concerning complaints such as increasing neck pain with difficulty moving, sudden onset of severe headache, or any other emergent medical complaints or concerns. Clinical Impressions Clinical Impression: Neck pain Fall Qualifiers: Encounter type: initial encounter Qualified Code(s): W19.XXXA - Unspecified fall, initial encounter Instructions Patient Instructions: Neck Pain (Alternative Therapy), DI for Neck Pain Print Language Print Language: Belarusian Discharge ED Provider: Champ Simpson General Adult HPI General Chief complaint: PAIN Stated complaint: AO [id number] Time Seen by Provider: 07/26/25 10:26 History of Present Illness HPI narrative: Patient is a pleasant 70 year old male who presents to the ED after a fall this morning. Patient had a mechanical fall in shower at 8am. States pain in the back of his head and neck. Denies dizziness, lightheadedness, LOC. Patient was recently admitted with a CVA and also has a recent diagnosis of Covid. Has been without a fever for four days. Denies any other complaints or new illnesses or diagnoses; denies chest pain, shortness of breath, abdominal pain. Onset (ago): hour(s) Location: head and neck Related Data Home Medications ?Medication ?Instructions ?Recorded ?Confirmed famotidine 20 mg tablet 20 mg PO DAILY GERD 08/10/20 08/10/20 Allergies Allergy/AdvReac Type Severity Reaction Status Date / Time No Known Allergies Allergy Verified 08/10/20 23:39 [facility] Disclaimer: The information contained in this section may have been updated after the patient was seen, as this information can be updated by other users. Social History Smoking Status: Never smoker alcohol intake: never current occupational status: retired Travel in the last 8 weeks?: None Have you lived/traveled outside US in past 30 days?: No Contact w/someone who lives/traveled outside US past 30 days?: No Exposure to someone with infectious disease in past 14 days?: No Do you have a fever (greater than 100.4 F or 38 C)?: No Have you tested positive for COVID-19?: No Exposed to someone with COVID-19 in past 14 days?: No Do you have a sore throat?: No Do you have a cough?: No Do you have any weakness?: No Do you have any diarrhea?: No Are you experiencing any unusual bleeding?: No Do you have any muscle aches/pain?: No Do you have any abdominal pain?: No Are you experiencing loss of taste or smell?: No Other Medical History Have you received the Flu Vaccine for this season: No Have you received the Pneumonia Vaccine: No ROS Obtained: Yes Systems reviewed as appropriate & no additional complaints except as documented Physical Exam General General appearance: alert and in no apparent distress Head Head exam: atraumatic (Abrasion and small hematoma in occipital region noted.) and normocephalic Eye Eye exam: Present normal appearance, PERRL and EOMI ENT ENT exam: Present normal exam Neck Neck exam: Present full ROM, tenderness (Point tenderness in posterior cervical spine noted.) and other Expanded Neck Exam Neck exam focused ED: Present midline tenderness; Absent tracheal deviation, anterior neck swelling or JVD Chest Chest inspection: Present normal inspection and symmetric chest wall rise Respiratory Respiratory exam: Present normal lung sounds bilaterally; Absent respiratory distress or wheezes Cardiovascular Cardiovascular exam: Present regular rate, normal rhythm and normal heart sounds Abdominal Exam Abdominal exam: Present soft and normal bowel sounds; Absent distention or tenderness Extremities Exam Extremities exam: Present normal inspection and full ROM Neurological Exam Neurological exam: Present alert and oriented X3 Psychiatric Psychiatric exam: Present normal affect and normal mood Skin Skin exam: Present warm and dry Medical Decision Making Medical Records Screening: Per USPSTF and CDC recommendations, given the prevalence of disease in our region, it is our hospital?s policy to screen for HIV and viral Hepatitis for all patients aged 18 and over and those with ongoing risk factors. Jeffy Inquiry Pt receiving controlled substance: No Vital Signs: 07/26/25 10:26 07/26/25 10:29 07/26/25 10:30 Temperature 98.0 F Temperature Source Oral Pulse Rate 94 H 89 Pulse Rate [Right] 75 Respiratory Rate 18 Blood Pressure 155/88 H 159/87 H Blood Pressure [Right Arm] 155/88 H Blood Pressure Mean [Right Arm] 110 Blood Pressure Source [Right Arm] Automatic Cuff Blood Pressure Position [Right Arm] Sitting 02 Sat by Pulse Oximetry 99 99 98 Oxygen Delivery Method Room Air Room Air Room Air 07/26/25 10:47 07/26/25 11:30 Temperature Temperature Source Pulse Rate 85 Pulse Rate [Right] Respiratory Rate Blood Pressure 145/77 H 134/86 Blood Pressure [Right Arm] Blood Pressure Mean [Right Arm] Blood Pressure Source [Right Arm] Blood Pressure Position [Right Arm] 02 Sat by Pulse Oximetry 98 100 Oxygen Delivery Method Room Air Room Air Orders (Tests/Meds): ORDERS Category Date Time Status CT cervical spine wo con Stat Cat Scan 07/26/25 10:[address] head/brain wo con Stat Cat Scan 07/26/25 10:31 Completed Medical Decision Narrative: In summary patient is a 70-year-old male who presents to the emergency department for evaluation of neck pain after a fall. Patient is hemodynamically stable upon arrival, afebrile. Physical exam remarkable for point tenderness in cervical spine; otherwise unremarkable exam. Differential diagnosis includes osseous injury to C-spine, muscular strain, subdural/epidural bleed. Initial workup will be conducted with CT scans of patient's head and C-spine. No interventions performed during ED course. Patient offered medication for pain relief but declined. Initial workup reviewed by me showed no concerning find ings on head or neck CT. Upon repeat evaluation patient remains alert and oriented, nontoxic and afebrile, GCS 15. Patient continues to complain of pain in back of neck but denies any change in pain or any other new complaints.. Given this repeat exam and CT findings, the patient was stable for discharge at this time. I informally interpreted the patient's head and cervical spine CTs as being unremarkable with no concerning findings. Evidence of previous CVA noted on head CT but imaging today was consistent with previous imaging with no changes. EKG and labs were considered but not clinically indicated at this time due to the patient's complaint and presentation. Critical Care Critical Care Time Critical Care Time: No
--- NOTE | 2025-07-26 10:37 | PC.NURSE ---
Pt to CT
--- OUTSIDE RECORDS SUMMARY | 2025-07-26 10:40 | XMS_ITS | Encounter Summary ---
Author Organization [facility] ystem Address [address] [place] [address] Care Team Providers Care Plate Hanger Name Role Phone Faustinobritney Seratom Meyer APRN Primary Care Provider [phone] Encounter Details Date Type Department Care Team (Late st Contact Info) Description 07/21/2025 Readmission Management [facility] [address] [place] [phone] Ramón Tatum, RN Social History Tobacco Use Types Packs/Day Years [...] care, and heating? Not very hard 07/19/2025 [facility] [place] of Occupat ional Health - Occupational Stress [...] things needed for daily living? No 07/19/2025 [facility] Utilities Answer Date Recorded In [...] GED or equivalent No 07/19/2025 Preferred Language American 07/19/2025 PHQ-2 Answer Date Recorded Patient Health Questionnaire-2 Score 0 07/19/2025 Sex and Gender Information Value Date Recorded Sex Assigned at Not on file Legal Sex Male 5:24 PM EST Gender Identity Not on file Sexual Orientation Not on file documented as of this encounter Miscellaneous Notes * Outreach Note - Ramón Tatum, RN - 07/21/2025 11:00 AM EST Stroke Week 1 Survey Flowsheet Row Responses [facility] patient discharged from? [place] Does the patient have one of the following disease processes/diagnoses(primary or secondary)? Stroke Week 1 attempt successful? No Unsuccessful attempts Attempt 2 Ramón Klein - Registered Nurse documented in this encounter Plan of Treatment Upcoming Encounters Date Type Department Care Team (Late st Contact Info) Description 08/16/2025 10:00 AM EST Office Visit [facility] [address] [phone] Valeria Jewell PA [address] [facility] [address] [place] [address] 08/19/2025 2:30 PM EST Appointment [facility] ED [address] [facility] [address] [place] [address] 08/30/2025 1:30 PM EST Office Visit [facility]UR[facility] [address] [facility] [address] [place] [address] Daya Aguilar APRN [address] [facility] [address] [place] [address] documented as of this encounter Visit Diagnoses Not on filedocumented in this encounter Care Teams Plate Hanger Relationship Specialty Start Date End Date Sera Newell, VIANEY [address] [place] [phone] PCP - General Nurse Practitioner 07/19/25 documented as of this encounter
--- OUTSIDE RECORDS SUMMARY | 2025-07-26 10:40 | XMS_ITS | Encounter Summary ---
[facility] Address [address] [place] [address] Care Team Providers Care Piece Hand Name Role Phone Sera Newell APRN Primary Care Provider [phone] Encounter Details Date Type Department Care Team (Latest Contact Info) Description 07/19/2025 Travel Social History Tobacco Use Types Packs/Day Years [...] care, and heating? Not very hard 07/19/2025 [facility] [place] of Occupat ional Health - Occupational Stress [...] things needed for daily living? No 07/19/2025 [facility] Utilities Answer Date Recorded In the past [...] GED or equivalent No 07/19/2025 Preferred Language Samoan 07/19/2025 PHQ-2 Answer Date Recorded Patient Health Questionnaire-2 Score 0 07/19/2025 Sex and Gender Information Value Date Recorded Sex Assigned at Not on file Legal Sex Male 5:24 PM EST Gender Identity Not on file Sexual Orientation Not on file documented as of this encounter Plan of Treatment Upcoming Encounters Date Type Department Care Team (Late st Contact Info) Description 08/16/2025 10:00 AM EST Office Visit [facility] [address] [facility] [address] [place] [phone] Valeria Jewell PA [address] [facility] [address] [place] [address] 08/19/2025 2:30 PM EST Appointment [facility] ED [address] [facility] [address] [place] [address] 08/30/2025 1:30 PM EST Office Visit [facility] [address] [facility] [address] [place] [address] Daya Aguilar APRN [address] [facility] [address] [address] documented as of this encounter Visit Diagnoses Not on filedocumented in this encounter Care Teams Piece Hand Relationship Specialty Start Date End Date Sera Newell, COYOTE HUNTER [address] [place] [phone] PCP - General Nurse Practitioner 07/19/25 documented as of this encounter
--- OUTSIDE RECORDS SUMMARY | 2025-07-26 10:40 | XMS_ITS | Encounter Summary ---
Author Organization [facility] ystem Address [address] [place] [address] Care Team Providers Care Sap Technical Architect Name Role Phone Faustinobritney Seratom Meyer APRN Primary Care Provider [phone] [phone] Encounter Details Date Type Department Care Team (Late st Contact Info) Description 07/20/2025 Readmission Management [facility] NURSE CALL CENTER [address] [place] [phone] Ramón Tatum, RN Social History Tobacco [...] care, and heating? Not very hard 07/19/2025 [facility] [place] of Occupat ional Health - Occupational Stress [...] things needed for daily living? No 07/19/2025 [facility] Utilities Answer Date Recorded In the past [...] GED or equivalent No 07/19/2025 Preferred Language Georgian 07/19/2025 PHQ-2 Answer Date Recorded Patient Health Questionnaire-2 Score 0 07/19/2025 Sex and Gender Information Value Date Recorded Sex Assigned at Not on file Legal Sex Male 5:24 PM EST Gender Identity Not on file Sexual Orientation Not on file documented as of this encounter Miscellaneous Notes * Outreach Note - Ramón Tatum, RN - 07/20/2025 2:40 PM EST Stroke Week 1 Survey Flowsheet Row Responses [facility] patient discharged from? [place] Does the patient have one of the following disease processes/diagnoses(primary or secondary)? Stroke Week 1 attempt successful? No Unsuccessful attempts Attempt 1 Ramón Klein - Registered Nurse documented in this encounter Plan of Treatment Upcoming Encounters Date Type Department Care Team (Late st Contact Info) Description 08/16/2025 10:00 AM EST Office Visit [facility] NEUROSURGERY [address] [phone] Valeria Jewell PA 1760 [facility] [address] [place] [address] 08/19/2025 2:30 PM EST Appointment [facility] DIABETES ED [address] [facility] [address] [place] [address] 08/30/2025 1:30 PM EST Office Visit [facility] NEUROLOGY [address] [facility] [address] [place] [address] Daya Aguilar APRN 1720 [facility] [address] [address] documented as of this encounter Visit Diagnoses Not on filedocumented in this encounter Care Teams Sap Technical Architect Relationship Specialty Start Date End Date Sera Newell, VIANEY [address] [place] [phone] PCP - General Nurse Practitioner 07/19/25 documented as of this encounter
--- OUTSIDE RECORDS SUMMARY | 2025-07-26 10:40 | XMS_ITS | Encounter Summary ---
Author Organization [facility] ystem Address [address] [place] [address] Care Team Providers Care Paper Sorter And Counter Name Role Phone FaustinoDanielle tantom Meyer APRN Primary Care Provider [phone] [phone] Encounter Details Date Type Department Care Team (Late st Contact Info) Description 07/19/2025 Readmission Management [facility] NURSE CALL CENTER [address] [place] [phone] Jonathon Graf, RN Social History Tobacco Use Types Packs/Day [...] care, and heating? Not very hard 07/19/2025 [facility] [place] of Occupat ional Health - Occupational Stress [...] things needed for daily living? No 07/19/2025 [facility] Utilities Answer Date Recorded In the [...] GED or equivalent No 07/19/2025 Preferred Language South African 07/19/2025 PHQ-2 Answer Date Recorded Patient Health Questionnaire-2 Score 0 07/19/2025 Sex and Gender Information Value Date Recorded Sex Assigned at Not on file Legal Sex Male 5:24 PM EST Gender Identity Not on file Sexual Orientation Not on file documented as of this encounter Miscellaneous Notes * Outreach Note - Jonathon Graf RN - 07/19/2025 8:17 PM EST Prep Survey Flowsheet Row Responses [facility] patient discharged from? [place] Is LACE score less than 10 ? Yes Eligibility Readm Mgmt Discharge diagnosis Ischemic stroke of frontal lobe Does the patient have one of the following disease processes/diagnoses(primary or secondary)? Stroke Does the patient have Home health ordered? No Is there a DME ordered? No Prep survey completed? Yes JONATHON Nash - Registered Nurse documented in this encounter Plan of Treatment Upcoming Encounters Date Type Department Care Team (Late st Contact Info) Description 08/16/2025 10:00 AM EST Office Visit [facility] NEUROSURGERY [address]60 [facility] [address] [place] [address] Valeria Jewell, PA [address] [facility] [address] [place] [address] 08/19/2025 2:30 PM EST Appointment [facility] DIABETES ED [address] [facility] [address] [place] [address] 08/30/2025 1:30 PM EST Office Visit [facility] NEUROLOGY [address] [facility] [address] [place] [address] Daya Aguilar APRN [address] [facility] [address] [address] documented as of this encounter Visit Diagnoses Not on filedocumented in this encounter Care Teams Paper Sorter And Counter Relationship Specialty Start Date End Date Sera Newell APRN [address] [place] [phone] PCP - General Nurse Practitioner 07/19/25 documented as of this encounter
--- OUTSIDE RECORDS SUMMARY | 2025-07-26 10:41 | XMS_ITS | Clinical Summary ---
Author Organization [facility] Address [address] [place] [address] Care Team Providers Care Descriptive Catalog Librarian Name Role Phone Sera Newell APRN Primary Care Provider [phone] [phone] Allergies No known active allergies Medications aspirin 81 MG chewable tablet Chew 1 tablet Daily. 90 tablet 9 5 3:43 PM EST 07/20/20 25 Active atorvastatin (LIPITOR) 80 MG tablet Take 1 tablet by mouth Every Night. 90 tablet 5 3:43 PM EST 07/19/20 25 Active clopidogrel (PLAVIX) 75 MG tablet Take 1 tablet by mouth Daily for 90 days. 90 tablet 5 3:43 PM EST 07/20/20 25 03162 026 Active Blood Glucose Monitoring Suppl (FreeStyle Lite) w/Device kit Use 1 Device 4 (Four) Times a Day As Needed (for glucose monitoring). 1 kit 07/19/20 25 Active glucose blood (FREESTYLE LITE) test strip Use 1 each as directed for blood glucose monitoring. 100 each 07/19/20 25 Active Lancets (freestyle) lancets Use 1 each As Needed (for glucose monitoring) as directed. 100 each 07/19/20 25 Active Continuous Glucose Sensor (Dexcom G6 Sensor) Use Every 10 (Ten) Days. 3 each 07/19/20 25 Active insulin NPH-insulin regular (NovoLIN 70/30) (70-30) 100 UNIT/ML injection Inject 10 Units under the skin into the appropriate area as directed 2 (Two) Times a Day With Meals. 10 mL 5 3:43 PM EST 07/19/20 25 Active Insulin Syringe-Needle U-100 31G X 12/18 0.3 ML misc use as directed with insulin administration 100 each 5 3:43 PM EST 07/19/20 25 Active Alcohol Swabs (Alcohol Pads) 70 % pads use as needed for insulin administration 100 each 5 3:43 PM EST 07/19/20 25 Active amoxicillin-cl avulanate (AUGMENTIN) 875-125 MG per tablet Take 1 tablet by mouth 2 (Two) Times a Day for 5 days. 10 tablet 5 3:43 PM EST 07/19/20 25 025 Insulin Glargine (BASAGLAR KWIKPEN) 100 UNIT/ML injection pen Inject 5 Units under the skin into the appropriate area as directed Daily. 15 mL 07/19/20 25 025 Discontinu ed(Stop Taking at Discharge) Active Problems Problem Noted Date Diagnosed Date Ischemic stroke of frontal lobe 07/18/2025 Dental abscess 07/18/2025 Type 2 diabetes mellitus with hyperglycemia 07/05 Mixed hyperlipidemia 07/18/2025 Resolved Problems Problem Noted Date Diagnosed Date Resolved Date Hyperglycemia 07/18/2025 07/18/2025 Dysphagia 07/18/2025 07/19/2025 Sinus tachycardia 07/18/2025 07/19/2025 Elevated blood pressure reading 07/18/2025 07/19/2025 Encounters Date Type Department Care Team Description 07/22/2025 Readmission Management [facility] NURSE CALL [facility] [address] [place] [address] Kaylin Jewell RN 07/21/2025 Readmission Management [facility] [address] [place] [address] Ramón Tatum, RN 07/20/2025 Readmission Management [facility] [address] [place] [phone] Ramón Tatum, RN 07/19/2025 Readmission Management [facility] [address] [place] [phone] Tesha Graf RN 07/19/2025 Travel 07/18/2025 2:17 AM EST - 07/19/2025 4:31 PM [facility] Hospital Encounter [facility] [address] [place] [phone] Gloria Mcgregor MD Anwer, Mohammed A, MD Opii, Wycliffe, MD Burgess, Eva, MD Ischemic stroke of frontal lobe (Primary Dx); Cognitive communication disorder Discharge Disposition: Home or Self Care from Last 3 Months Social History Tobacco Use Types Packs/Day Years [...] care, and heating? Not very hard 07/19/2025 [facility] [place] of Occupat ional Health - Occupational Stress [...] things needed for daily living? No 07/19/2025 [facility] Utilities Answer Date Recorded In the past [...] GED or equivalent No 07/19/2025 Preferred Language Romansh 07/19/2025 PHQ-2 Answer Date Recorded Patient Health Questionnaire-2 Score 0 07/19/2025 Sex and Gender Information Value Date Recorded Sex Assigned at Not on file Legal Sex Male 5:24 PM EST Gender Identity Not on file Sexual Orientation Not on file Last Filed Vital Signs Vital Sign Reading [...] Mass Index 32.96 07/18/2025 7:50 AM EST Plan of Treatment Upcoming Encounters Date Type Department Care Team (Late st Contact Info) Description 08/16/2025 10:00 AM EST Office Visit [facility] NEUROSURGERY [address] [facility] [address] [place] [address] Valeria Jewell PA [address]60 [facility] [address] [place] [address] 08/19/2025 2:30 PM EST Appointment [facility] DIABETES ED [address] [facility] [address] [place] [phone] 08/30/2025 1:30 PM EST Office Visit [facility] NEUROLOGY [address] [facility] [address] [place] [address] Daya Aguilar APRN [address] [facility] [address] [address] Health Maintenance Due Date Last Done Comments ANNUAL WELLNESS VISIT 1957 HEPATITIS C SCREENING 1957 DIABETIC EYE EXAM 1967 DIABETIC FOOT EXAM 1967 URINE MICROALBUMIN-CREATININ E RATIO (uACR) 1967 Pneumococcal Vaccine 50+ (1 of 2 - PCV) 02/19/1976 TDAP/TD VACCINES (1 - Tdap) 02/19/1976 COLOGUARD 2002 COLON CANCER SCREENING 5 YEA R SIGMOIDOSCOPY 2002 COLONOSCOPY 2002 COLORECTAL CANCER SCREENING 2002 CT COLONOGRAPHY 2002 FECAL OCCULT BLOOD TEST 2002 FIT Testing (1 year) 2002 ZOSTER VACCINE (1 of 2) 2007 AAA SCREEN ONCE 2022 INFLUENZA VACCINE 03/05/2025 COVID-19 Vaccine ( season) 2025 04/23/2022, 08/02/2021, 10/12/2020 HEMOGLOBIN A1C 01/16/2026 07/18/2025 LIPID PANEL 07/18/2026 07/18/2025 Procedures Procedure Name Priority Date/Time Associated Diagnosis [...] ECG 12-LEAD Routine 07/18/2025 3:49 AM EST LIPID PANEL Routine 07/18/2025 2:51 AM EST MAGNESIUM STAT 07/18/2025 2:51 AM EST COMPREHENSIVE METABOLIC PANEL STAT 07/18/2025 2:51 AM EST CBC AND DIFFERENTIAL STAT 07/18/2025 2:50 AM EST CBC WITH AUTO DIFFERENTIAL STAT 07/18/2025 2:50 AM EST HEMOGLOBIN A1C STAT 07/18/2025 2:50 AM EST POCT GLUCOSE FINGERSTICK Routine 07/18/2025 2:40 AM EST SCANNED - IMAGING 07/18/2025 SCANNED - IMAGING 07/18/2025 CT OUTSIDE HEAD Routine 07/17/2025 6:[address] OUTSIDE HEAD Routine 07/17/2025 6:[address] OUTSIDE HEAD Routine 07/17/2025 6:33 PM EST from Last 3 Months Results * (ABNORMAL) POC Glucose Once (07/19/2025 11:05 AM EST) Only the most recent of8 resultswithin the time period is included. Glucose 305(H) 70 - 130 mg/dL 07/19/2025 11:07 AM EST [facility] Comment:Serial Number: [id number]: [id number] Blood 07/19/2025 11:0 5 AM EST 07/19/2025 11:07 AM EST Bharti Lam MD POINT OF CARE TEST ORDERABLES Fi nal Result [facility]
[address] [place] [address], * FL Limited Ugi For Mbs Reflux [...] MD 07/19/2025 2:48 PM EST Workstation ID: [id number] Narrative 07/19/2025 2:48 PM EST FL VIDEO [...] MD 07/19/2025 2:48 PM EST Workstation ID: [id number] Paul Cronin MD IMG FLUOROSCOPY ORDERABLES Tyalor l Result * FL Video Swallow With [...] MD 07/19/2025 2:48 PM EST Workstation ID: [id number] Nikole 07/19/2025 2:48 PM EST FL VIDEO [...] MD 07/19/2025 2:48 PM EST Workstation ID: [id number] Paul Cronin MD IMG FLUOROSCOPY ORDERABLES Taylor [...] MD 07/19/2025 9:58 AM EST Workstation ID: [id number] Narrative 07/19/2025 9:[address] SOFT [...] MD 07/19/2025 9:58 AM EST Workstation ID: [id number] Bharti Lam MD [facility] CT ORDERABLES Final Result * Telemetry Scan (07/19/2025 7:35 AM EST) [facility] ECG ORDERABLES Final Result * P2Y12 Platelet Inhibition (07/18/2025 7:28 PM EST) P2Y12 Reactivity Unit 90 PRU DISK DIFFUSION 07/18/2025 8:18 PM EST [facility] Blood Venipuncture / Unknown 07/18/2025 7:28 PM EST 07/18/2025 7:58 PM EST Narrative [facility] - 07/18/2025 8:18 PM EST P2Y12 [...] MD LAB BLOOD ORDERABLES Final R esult [facility]
[address] [place] [address], * DUPLEX CAROTID BILATERAL CAR - PERFORMED [...] and patient positioning. No relevant cardiovascular history. us Corrine Sahu APRN CV VASCULAR ORDERABLES Taylor owen Result * ECHO COMPLETE W/ DOPPLER, COLOR FLOW [...] 20 mL of agitated saline was administered. Corrine Sahu APRN CV ECHO ORDERABLES Final [...] vessel ischemic disease. Findings called to the fleet coordinator at the time of interpretation. Electronically [...] small vessel ischemicdisease. Findings called to the fleet coordinator at the time of interpretation. Electronically Signed: Florin Anaya MD 07/18/2025 10:00 AM EST Workstation ID: [id number] Corrine Sahu APRN IMG MRI ORDERABLES Final Re sult * Urinalysis, Microscopic Only - Urine, Clean Catch (07/18/2025 8:00 AM EST) RBC, UA 0-2 None Seen, 0-2 /HPF 07/18/2025 8:44 AM EST [facility] WBC, UA 0-2 None Seen, 0-2 /HPF 07/18/2025 8:44 AM EST [facility] Bacteria, UA None Seen None Seen /HPF 07/18/2025 8:44 AM EST [facility] Squamous Epithelial Cells, UA 0-2 None Seen, 0-2 /HPF 07/18/2025 8:44 AM EST [facility] Hyaline Casts, UA 0-2 None Seen /LPF 07/18/2025 8:44 AM EST [facility] Methodology Automated Microscopy 07/18/2025 8:44 AM EST [facility] Urine Urine specimen obtained by clean catch procedure / Unknown Collection / Unknown 07/18/2025 8:00 AM EST 07/18/2025 8:36 AM EST Vesna Thompson PRODUCTION TRUCK DRIVER URINE ORDERABLES Fi nal Result [facility]
[address] [place] [address], * (ABNORMAL) Urinalysis With Microscopic If Indicated (No Culture) - Urine, Clean Catch (07/18/2025 8:00 AM EST) Color, UA Yellow Yellow, Straw 07/18/2025 8:44 AM EST [facility] Appearance, UA Clear Clear 07/18/2025 8:44 AM EST [facility] pH, UA <=5.0 5.0 - 8.0 07/18/2025 8:44 AM EST [facility] Specific [place], UA >1.030(H) 1.005 - 1.030 07/18/2025 8:44 AM EST [facility] Glucose, UA >=1000 mg/dL (3+)(A) Negative 07/18/2025 8:44 AM EST [facility] Ketones, UA 40 mg/dL (2+)(A) Negative 07/18/2025 8:44 AM EST [facility] Bilirubin, UA Negative Negative 07/18/2025 8:44 AM EST [facility] Blood, UA Negative Negative 07/18/2025 8:44 AM EST [facility] Protein, UA 30 mg/dL (1+)(A) Negative 07/18/2025 8:44 AM EST [facility] Leuk Esterase, UA Negative Negative 07/18/2025 8:44 AM EST [facility] Nitrite, UA Negative Negative 07/18/2025 8:44 AM [facility] Urobilinogen, UA 0.2 E.U./dL 0.2 - 1.0 E.U./dL 07/18/2025 8:44 AM EST [facility] Urine Urine specimen obtained by clean catch procedure / Unknown Collection / Unknown 07/18/2025 8:00 AM EST 07/18/2025 8:36 AM EST us Vesna Thompson PRODUCTION TRUCK [employer]IVER URINE ORDERABLES Fi nal Result [facility]
[address] [place] [address], * Lactic Acid, Plasma (07/18/2025 4:54 AM EST) Lactate 1.5 0.5 - 2.0 mmol/L 07/18/2025 5:43 AM EST [facility] Comment:Falsely depressed re sults may occur on samples drawn from patients receiving N-Acetylcysteine (NAC) or Metamizole. Blood Venipuncture / Unknown 07/18/2025 4:54 AM EST 07/18/2025 5:16 AM EST Vesna Thompson PRODUCTION TRUCK DRIVER LAB BLOOD ORDERABLE S Final Result [facility]
[address] [place] [address], * ECG 12 Lead Other; new admission (07/18/2025 3:49 AM EST) QT Interval 332 ms BH ECG QTC Interval 436 ms ECG 07/18/2025 3:49 AM EST 07/18/2025 9:24 AM EST Narrative ECG - 07/18/2025 9:24 AM EST Test [...] MD ECG ORDERABLES Final Result ECG * Magnesium (07/18/2025 2:51 AM EST) Magnesium 1.9 1.6 - 2.4 mg/dL 07/18/2025 3:30 AM EST [facility] Blood Venipuncture / Unknown 07/18/2025 2:51 AM EST 07/18/2025 2:57 AM EST [facility] MD LAB BLOOD ORDERABLES Final R esult [facility]
[address] [place] [address], * (ABNORMAL) Lipid Panel (07/18/2025 2:51 AM EST) Total Cholesterol 233(H) 0 - 200 mg/dL 07/18/2025 3:30 AM EST [facility] Triglycerides 305(H) 0 - 150 mg/dL 07/18/2025 3:30 AM EST [facility] HDL Cholesterol 31(L) 40 - 60 mg/dL 07/18/2025 3:30 AM EST [facility] LDL Cholesterol 146(H) 0 - 100 mg/dL 07/18/2025 3:30 AM EST [facility] VLDL Cholesterol 56(H) 5 - 40 mg/dL 07/18/2025 3:30 AM EST [facility] LDL/HDL Ratio 4.55 07/18/2025 3:30 AM EST [facility] Blood Venipuncture / Unknown 07/18/2025 2:51 AM EST 07/18/2025 2:57 AM EST [facility] LABORATORY - 07/18/2025 3:30 AM EST Cholesterol [...] MD LAB BLOOD ORDERABLES Final R esult [facility]
[address] [place] [address], * (ABNORMAL) Comprehensive Metabolic Panel (07/18/2025 2:51 AM EST) [facility] Glucose 232(H) 65 - 99 mg/dL 07/18/2025 3:30 AM EST [facility] BUN 15.4 8.0 - 23.0 mg/dL 07/18/2025 3:30 AM EST [facility] Creatinine 0.87 0.76 - 1.27 mg/dL 07/18/2025 3:30 AM EST [facility] Sodium 137 136 - 145 mmol/L 07/18/2025 3:30 AM EST [facility] Potassium 3.9 3.5 - 5.2 mmol/L 07/18/2025 3:30 AM EST [facility] Chloride 101 98 - 107 mmol/L 07/18/2025 3:30 AM EST [facility] CO2 25.5 22.0 - 29.0 mmol/L 07/18/2025 3:30 AM EST [facility] Calcium 10.3 8.6 - 10.5 mg/dL 07/18/2025 3:30 AM EST [facility] Total Protein 7.2 6.0 - 8.5 g/dL 07/18/2025 3:30 AM [facility] Albumin 4.0 3.5 - 5.2 g/dL 07/18/2025 3:30 AM [facility] ALT (SGPT) 14 1 - 41 U/L 07/18/2025 3:30 AM [facility] AST (SGOT) 19 1 - 40 U/L 07/18/2025 3:30 AM [facility] Alkaline Phosphatase 95 39 - 117 U/L 07/18/2025 3:30 AM [facility] Total Bilirubin 0.8 0.0 - 1.2 mg/dL 07/18/2025 3:30 AM [facility] Globulin 3.2 gm/dL 07/18/2025 3:30 AM [facility] Comment:Calculated Result A/G Ratio 1.3 g/dL 07/18/2025 3:30 AM [facility] BUN/Creatinine Ratio 17.7 7.0 - 25.0 07/18/2025 3:30 AM [facility] Anion Gap 10.5 5.0 - 15.0 mmol/L 07/18/2025 3:30 AM [facility] eGFR 94.0 >60.0 mL/min/1.7 3 07/18/2025 3:30 AM [facility] Blood Venipuncture / Unknown 07/18/2025 2:51 AM EST 07/18/2025 2:57 AM EST [facility]AT[facility] - 07/18/2025 3:30 AM EST GFR [...] does not include race as a factor Chanelle Goyal MD LAB BLOOD ORDERABLES Final R esult [facility]
[address] [place] [address], * (ABNORMAL) CBC Auto Differential (07/18/2025 2:50 AM EST) WBC 10.50 3.40 - 10.80 10*3/mm3 07/18/2025 3:15 AM EST [facility] RBC 5.47 4.14 - 5.80 10*6/mm3 07/18/2025 3:15 AM EST [facility] Hemoglobin 16.9 13.0 - 17.7 g/dL 07/18/2025 3:15 AM EST [facility] Hematocrit 48.9 37.5 - 51.0 % 07/18/2025 3:15 AM EST [facility] MCV 89.4 79.0 - 97.0 fL 07/18/2025 3:15 AM EST [facility] MCH 30.9 26.6 - 33.0 pg 07/18/2025 3:15 AM EST [facility] MCHC 34.6 31.5 - 35.7 g/dL 07/18/2025 3:15 AM EST [facility] RDW 11.9(L) 12.3 - 15.4 % 07/18/2025 3:15 AM EST [facility] RDW-SD 38.9 37.0 - 54.0 fl 07/18/2025 3:15 AM EST [facility] MPV 9.3 6.0 - 12.0 fL 07/18/2025 3:15 AM EST [facility] Platelets 268 140 - 450 10*3/mm3 07/18/2025 3:15 AM EST [facility] Neutrophil % 64.8 42.7 - 76.0 % 07/18/2025 3:15 AM EST [facility] Lymphocyte % 26.8 19.6 - 45.3 % 07/18/2025 3:15 AM EST [facility] Monocyte % 6.2 5.0 - 12.0 % 07/18/2025 3:15 AM [facility] Eosinophil % 1.3 0.3 - 6.2 % 07/18/2025 3:15 AM [facility] Basophil % 0.4 0.0 - 1.5 % 07/18/2025 3:15 AM EST [facility] Immature Grans % 0.5 0.0 - 0.5 % 07/18/2025 3:15 AM EST [facility] Neutrophils, Absolute 6.81 1.70 - 7.00 10*3/mm3 07/18/2025 3:15 AM [facility] Lymphocytes, Absolute 2.81 0.70 - 3.10 10*3/mm3 07/18/2025 3:15 AM [facility] Monocytes, Absolute 0.65 0.10 - 0.90 10*3/mm3 07/18/2025 3:15 AM [facility] Eosinophils, Absolute 0.14 0.00 - 0.40 10*3/mm3 07/18/2025 3:15 AM [facility] Basophils, Absolute 0.04 0.00 - 0.20 10*3/mm3 07/18/2025 3:15 AM [facility] Immature Grans, Absolute 0.05 0.00 - 0.05 10*3/mm3 07/18/2025 3:15 AM EST [facility] nRBC 0.0 0.0 - 0.2 /100 WBC 07/18/2025 3:15 AM [facility] Blood Venipuncture / Unknown 07/18/2025 2:50 AM EST 07/18/2025 3:12 AM EST us Chanelle Goyal MD LAB BLOOD ORDERABLES Final R esult [facility]
[address] [place] [address], * (ABNORMAL) Hemoglobin A1c (07/18/2025 2:50 AM EST) Hemoglobin A1C 10.90(H) 4.80 - 5.60 % 07/18/2025 3:11 AM EST [facility] Blood Venipuncture / Unknown 07/18/2025 2:50 AM EST 07/18/2025 2:57 AM EST Narrative [facility] - 07/18/2025 3:11 AM EST Hemoglobin A1C Ranges: Increased Risk for Diabetes 5.7% to 6.4% Diabetes >= 6.5% Diabetic Goal < 7.0% Chanelle Goyal MD LAB BLOOD ORDERABLES Final R esult [facility]
[address] [place] [address], * IMAGING SCANNED (07/18/2025) Only the most recent of2 resultswithin the time period is included. Anatomical Region Laterality Modality Radiographic [facility] Onbase IMG DIAGNOSTIC IMAGING ORDERA BLES Final Result * CT Outside Head (07/17/2025 6:33 PM EST) Only the most recent of3 resultswithin the time period is included. Narrative SYSTEMGENERATED, DOCUMENTATION - 07/17/2025 6:33 PM EST This procedure was auto-finalized with no dictation required. Radiant Outside Films IMG CT ORDERABLES Final Re sult from Last 3 Months Insurance MEDICARE A & B Advance Directives * CPR (Attempt to Resuscitate) (Latest Code Status on File) Date Activated Date Inactivated Comments 07/18/2025 4:56 AM 07/19/2025 6:31 PM Question Answer Comments Code Status (Patient has no pulse and is not breathing): CPR (Attempt to Resuscitate) Medical Interventions (Patie nt has pulse or is breathing): Full Support Level Of Support Discussed With: Patient Care Teams Descriptive Catalog Librarian Relationship Specialty Start Date End Date Sera Newell APRN [address] [place] [phone] PCP - General Nurse Practitioner 07/19/25
--- OUTSIDE RECORDS SUMMARY | 2025-07-26 10:41 | XMS_ITS | Encounter Summary ---
Author Organization [facility] ystem Address [address] [place] [address] Care Team Providers Care Oim Consultant Name Role Phone Faustinobritney Seratom Meyer APRN Primary Care Provider [phone] Encounter Details Date Type Department Care Team (Late st Contact Info) Description 07/22/2025 Readmission Management [facility] [address] [place] [id number] Kaylin Jewell, RN Social History Tobacco Use Types Packs/Day [...] care, and heating? Not very hard 07/19/2025 [facility] [place] [facility] Occup[facility] - Occupational Stress [...] things needed for daily living? No 07/19/2025 [facility] Utilities Answer Date Recorded In the [...] GED or equivalent No 07/19/2025 Preferred Language Moldovan 07/19/2025 PHQ-2 Answer Date Recorded Patient Health Questionnaire-2 Score 0 07/19/2025 Sex and Gender Information Value Date Recorded Sex Assigned at Not on file Legal Sex Male 5:24 PM EST Gender Identity Not on file Sexual Orientation Not on file documented as of this encounter Miscellaneous Notes * Outreach Note - Kaylin Jewell RN - 07/22/2025 12:37 PM EST Images from the original note were not included. Stroke Week 1 Survey Flowsheet [address] [facility] the patient have one of the following disease processes/diagnoses(primary or secondary)? Stroke Week 1 attempt successful? Yes Call start time 1243 Call end time 1247 Discharge diagnosis Ischemic stroke of frontal lobe Meds reviewed with patient/caregiver? Yes Is the patient having any side effects they believe may be caused by any medication additions or changes? No Does the patient have all medications ordered at discharge? Yes Is the patient taking all medications as directed (includes completed medication regime)? Yes Medication comments Bleeding precautions discussed Does the patient have a primary care provider? Yes Does the patient have an appointment with their PCP within 7 days of discharge? Yes Comments regarding PCP Hospital follow up appt with PCP on 07/26 Has the patient kept scheduled appointments due by today? N/A [facility] St[facility] at [facility] requests you follow up with them within 30 days for important follow up care. Please call [phone] to schedule this appointment. Thank you. Yes [stroke clinic appt on 08/30/25] Has home health visited the patient within 72 hours of discharge? N/A Has all DME been delivered? No Does the patient require any assistance with activities of daily living such as eating, bathing, dressing, walking, etc.? No Does the patient have any residual symptoms from stroke/TIA? Yes Residual symptoms comments still has some weakness and confusion at times Did the patient receive a copy of their discharge instructions? Yes Nursing interventions Reviewed instructions with patient What is the patient's perception of their health status since discharge? Improving Nursing interventions Nurse provided patient education Is the patient/caregiver able to teach back the risk factors for a stroke? High blood pressure-goalbelow 120/80, History of TIAs, High Cholesterol Is the patient/caregiver able to teach back signs and symptoms related to disease process for when to call PCP? Yes Is the patient/caregiver able to teach back signs and symptoms related to disease process for when to call 911? Yes If the patient is a current smoker, are they able to teach back resources for cessation? Not a smoker Is the patient/caregiver able to teach back the hierarchy of who to call/visit for symptoms/problems? PCP, Specialist, Home health nurse, Urgent Care, ED, 911 Yes Is the patient able to teach back FAST for Stroke? T vandana: Call right away, S peech: Listen for slurred speech, A rm: Check if one arm is weak, F keyla: Look for an uneven smile, B alance: Watch for sudden loss of balance, E yes: Check for vision loss Week 1 call completed? Yes Revoked No further contact(revokes)-requires comment Is the patient interested in additional calls from an ambulatory upper caser? No Would this patient benefit from a Referral to [facility] Social Work? No Wrap up additional comments Doing well, denies any questions or concerns, will be seeing his PCP on07/26, confirmed stroke clinic appt for 08/30/25, no further calls needed. Call end time 1247 Kaylin Calvillo - Registered Nurse documented in this encounter Plan of Treatment Upcoming Encounters Date Type Department Care Team (Late st Contact Info) Description 08/16/2025 10:00 AM EST Office Visit [facility] [address] [facility] [address] [place] [id number] Valeria Jewell PA [address] [facility] [address] [place] [address] 08/19/2025 2:30 PM EST Appointment [facility] [address] [facility] [address] [place] [address] 08/30/2025 1:30 PM EST Office Visit [facility] [address] [facility] [address] [place] [address] Daya Aguilar APRN [address] [facility] [address] [place] [id number] documented as of this encounter Visit Diagnoses Not on filedocumented in this encounter Care Teams Oim Consultant Relationship Specialty Start Date End Date Sera Newell APRN [address] [place] [address] PCP - General Nurse Practitioner 07/19/25 documented as of this encounter
[2025-07-26 10:47] VITALS: BP 145/77; PULSE 85; O2SAT 98
[2025-07-26 11:30] VITALS: BP 134/86; O2SAT 100
[2025-07-26 12:29] VITALS: BP 142/72; PULSE 65; RESP 18; TEMP 36.7; O2SAT 98
== END 2025-07-26 12:30 | disposition home or self-care (01) ==
PROVIDERS: Emergency Provider Emergency Medicine; PCP Nurse Practitioner
DX: M54.2 Cervicalgia (principal); S00.03XA Contusion of scalp, initial encounter; W18.12XA Fall from or off toilet with subsequent striking against object, initial encounter
CPT/HCPCS: 70450; 72125; 99284